=== PATIENT | female | born 1945 | race Caucasian/White ===

== ENCOUNTER → 2018-01-02 14:00 | Outpatient (CLI) | payer MEDICARE, BC, SELFPAY ==
--- NOTE | 2018-01-02 | DI.MG.S_ITS ---
BILATERAL DIGITAL SCREENING MAMMOGRAM 3D/2D WITH CAD: 01/02/2018 CLINICAL: Routine screening. Comparison is made to exams dated: 02/24/2014 mammogram, 02/10/2013 mammogram - [facility], and 02/03/2008 mammogram - [facility]. The tissue of both breasts is heterogeneously dense. This may lower the sensitivity of mammography. Current study was also evaluated with a Computer Aided Detection (CAD) system. No significant masses, calcifications, or other findings are seen in either breast. There has been no significant interval change. IMPRESSION: NEGATIVE There is no mammographic evidence of malignancy. A 1 year screening mammogram is recommended. This exam was interpreted at Station ID: [id number]. NOTE: For mammograms, a report in lay terms will be sent to the patient. Approximately 15% of breast malignancies will not be visualized mammographically. In the management of a palpable breast mass, a negative mammogram must not discourage biopsy of a clinically suspicious lesion. Electronically Signed By: Mauricio wolff/rene:01/04/2018 08:38:36 letter sent: Normal Exam ACR BI-RADS Category 1: Negative [id number]
== END ==
PROVIDERS: PCP Family Medicine; Visit Provider Family Medicine
DX: Z12.31 Encounter for screening mammogram for malignant neoplasm of breast (principal)
CPT/HCPCS: 77063; 77067

== ENCOUNTER → 2018-05-04 14:43 | Outpatient (CLI) | payer MEDICARE, BC, SELFPAY ==
[2018-05-04 18:11] LABS: Vitamin D 25 Hydroxy (D3) 32.6 ng/mL (30.0-100.0)
== END ==
PROVIDERS: PCP Family Medicine; Visit Provider Family Medicine
DX: E55.9 Vitamin D deficiency, unspecified (principal)
CPT/HCPCS: 36415; 82306

== ENCOUNTER 2018-07-28 10:00 | Outpatient (RCR) | payer MEDICARE, BC, SELFPAY ==
--- NOTE | 2018-03-22 12:50 | PT.OIE ---
Current Diagnoses Strain of unspecified muscle, fascia and tendon at shoulder and upper arm level, right arm, initial encounter (03/22/18) Past Medical History (Last Updated 02/02/18 @ 15:03 by Lynnette Noe) Mixed basal-squamous cell carcinoma (Resolved) Past Surgical History (Last Updated 02/02/18 @ 15:02 by Lynnette Noe) History of tonsillectomy (~1948) Status post cone biopsy of cervix (~1989) Provider Visit Care Team Role Provider Type Che Lopez DO Attending Provider Physician Primary Care Provider Specialty: Family Practice Address: [address] [place] [address], [facility] Email: [email or web address] Physical Therapy Initial Evaluation PT-OP-A Visit Information Start: 03/23/18 11:44 Freq: Status: Active Protocol: Document 03/22/18 12:50 MDD (Rec: 03/23/18 12:20 MDD [email or web address]) Out-Patient Physical Therapy Visit Information Visit Information Visit Type Initial Evaluation Visit Start Time 12:05 Visit Stop Time 12:50 Total Visit Minutes 45 Visit Number 1 Number of RIVER EXPEDITION GUIDE Visits 0 Evaluation Information Evaluation Date 03/22/18 PT-OP-B Current Condition Start: 03/23/18 11:44 Freq: Status: Active Protocol: Document 03/22/18 12:50 MDD (Rec: 03/23/18 12:20 MDD [email or web address]) Current Condition History of Current Condition Onset Date 3 months ago Current Complaints R neck, shoulder and arm pain - radiates into lateral forearm and thumb History of Current Condition Incidious onset 3 months ago. Pain is intermittent and described as dull and achy. Occaisionally radiates into forearm, wrist and R thumb. 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 Denies previous neck injury or MVA history. Reports that when pain began, all of her joints would hurt intermittently, but now the shoulder pain has continued. Aggravating factors include reaching overhead, lifting laundry detergent or a tea kettle and lifting/carrying a heavy bag of groceries. She is able to sleep on that side. Massage is helpful (goes once a month). No imaging. Prior Treatments and Tests tylenol, icing intermittently. home care associate has been helpful for neck pain, but not shoulder Prior Functional Status Baseline Function- ADL's Independent Baseline Function- Mobility Independent Baseline Function- Recreation/Hobbies Lifting radu parker ( roughly 15#). Was attending a fitness center a few times a week, walking the dog, gardening. 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 Patient Reported Progress Same OP-PT Pain Assessment Pain Assessment Grid Paper Pain Assessment Grid Completed Yes Location Shoulder Pain Location Details R, anterior radiating into deltoid process, Intensity 4 Scale Used Numeric (1 - 10) Description Aching Dull Frequency Frequent Pain Duration an hour or so Radiating Location R forearm, wrist and thumb Pain Aggravating Factors ADL's Lifting Pain Alleviating Factors Cold Medication PT-OP-F Manual Assessment Start: 03/23/18 11:44 Freq: Status: Active Protocol: Document 03/22/18 12:50 MDD (Rec: 03/23/18 12:20 MDD [email or web address]) Manual Assessments Soft Tissue Assessment Soft Tissue Mobility Assessment Significant tightness in B upper trapezii, R>L. PT-OP-J Posture/Palpation/Skin Start: 03/23/18 11:44 Freq: Status: Active Protocol: Document 03/22/18 12:50 MDD (Rec: 03/23/18 12:20 MDD [email or web address]) Posture Evaluation Position Sitting Evaluation View Lateral Head/C-Spine Posture Flexed C-Spine Flattened Forward Head T-Spine Posture Increased Kyphosis Thorax Posture Neutral Shoulder Posture (L) Rounded (R) Rounded (R) Elevated Shoulder Subluxation Position (L) Neutral (R) Neutral Scapula Posture (R) Protracted (R) Elevated (R) Winged Arm Posture (R) Internally Rotated Palpation Assessment Location One Palpation Location coracoid process Palpation Findings Tenderness Palpation Details R coracoid process tender to palpation PT-OP-K Range of Motion Start: 03/23/18 11:44 Freq: Status: Active Protocol: Document 03/22/18 12:50 MDD (Rec: 03/23/18 12:20 MDD [email or web address]) Cervical Spine Range of Motion Cervical Spine Passive Testing Position Supine ROM Limitations Soft Tissue Tightness Comments Passive movements wfl in all motions, slightly greater than active Active Testing Position Sitting ROM Limitations Soft Tissue Tightness Comments all movements within normal limits, R mild limitation and pain with R rotation Shoulder Goniometric Range of Motion Shoulder Measured in Degrees Left Active Shoulder ROM WFL Yes Testing Position Sitting Flexion 145 Abduction 160 Right Active Shoulder ROM WFL Yes Testing Position Sitting Flexion 142 Abduction 100 Shoulder ROM Limitations Shoulder ROM Limitations Soft Tissue Tightness Comments Functional ER with hands behind head wnl. Functional IR wnl, but causes mild stretch sensation anterior shoulder PT-OP-L Special Tests Start: 03/23/18 11:44 Freq: Status: Active Protocol: Document 03/22/18 12:50 MDD (Rec: 03/23/18 12:20 MDD [email or web address]) Special Tests Cervical Spine Special Tests Spurling's Test Test Results negative B Comments no re-creation of radiating pain into thumb/forearm Shoulder Special Tests Empty Can Test Results positive Speed's Biceps Test Results negative Biceps Load II Test Test Results negative Rebollar Francis Impingement Test Results positive R PT-OP-M Strength Start: 03/23/18 11:44 Freq: Status: Active Protocol: Document 03/22/18 12:50 MDD (Rec: 03/23/18 12:20 MDD [email or web address]) Shoulder Strength Shoulder Manual Muscle Testing Left Flexion 5 Normal Abduction (C5) 5 Normal External Rotation 4+ Good+ Internal Rotation 5 Normal Right External Rotation 4 Good Internal Rotation 5 Normal Reason Not Measured Pain Comments abduction/flexion not tested due to pain with active movement PT-OP-Q Treatments Start: 03/23/18 11:44 Freq: Status: Active Protocol: Document 03/23/18 12:20 MDD (Rec: 03/23/18 12:21 MDD [email or web address]) Therapeutic Exercises Standing Exercises 3 Standing Exercise Name corner pectoralis stretch Side bilateral Reps/Minutes 2 x 30 seconds 2 Standing Exercise Name scapular retraction Side bilateral Reps/Minutes 15 1 Standing Exercise Name wall walking Side right Reps/Minutes 10 PT-OP-T Assessment and Plan Start: 03/23/18 11:44 Freq: Status: Active Protocol: Document 03/22/18 12:50 MDD (Rec: 03/23/18 12:20 MDD [email or web address]) Physical Therapy Assessment Rehab Potential Rehabilitation Potential Excellent Evaluation Complexity Number of Personal Factors/Comorbidities 0 Number of Body Systems Impaired 1-2 Clinical Presentation at Evaluation Stable Impairments Impairments Functional Activities Pain Posture ROM Soft Tissue Mobility Strength Goals Four Impairment ADL's Short Term Goal (STG) Pt will have improved quickDASH score to no greater than 20% disability to indicate improved function STG Duration 8 weeks Three Impairment strength Short Term Goal (STG) Pt will have 5/5 strength in rotator cuff muscles. STG Duration 6 weeks Two Impairment pain Short Term Goal (STG) Pt will tolerate activities of daily living (such as lifting a tea kettle) with 0/10 pain in R shoulder. STG Duration 4 weeks One Impairment ROM Short Term Goal (STG) Pt will demonstrate full end range R shoulder flexion ROM without pain. STG Duration 3 weeks Assessment Summary Assessment Pt is a pleasant female who presents today complaining of R shoulder pain that is currently limiting her ability to perform some ADL's without pain. On examination today she demonstrates impaired posture, decreased R shoulder strength, mild impairments in ROM and pain that seem indicative of either rotator cuff tendinitis and/or impingement. Despite pain radiating into R arm/forearm, symptoms do not seem to be coming from her cervical spine . She should benefit from a PT plan of care to address the above impairments. Physical Therapy Plan Frequency and Duration Frequency of Treatment 1x/Week Duration of Treatment 8 weeks Plan of Care Start Date 03/22/18 Plan of Care End Date 06/01/18 Therapeutic Interventions Therapeutic Interventions Home Exercise Program Joint Mobilizations Manual Therapy Neuromuscular Re-education Self-Care/Home Management Soft Tissue Mobilization Therapeutic Activities Therapeutic Exercises Modalities Cold Pack/Ice Massage Electric Stimulation Hot Packs Next Visit Focus/Plan Next Note Type Treatment Note Next Visit Plan review HEP (included corner pectoralis stretch, wall walking and scapular retraction).
--- NOTE | 2018-03-30 11:18 | PT.OTN ---
Current Diagnoses Strain of unspecified muscle, fascia and tendon at shoulder and upper arm level, right arm, initial encounter (03/30/18) Physical Therapy Treatment Note PT-OP-A Visit Information Start: 03/23/18 11:44 Freq: Status: Active Protocol: Document 03/30/18 11:18 MDD (Rec: 03/31/18 12:27 MDD [email or web address]) Out-Patient Physical Therapy Visit Information Visit Information Visit Type Treatment Note Visit Start Time 10:36 Visit Stop Time 11:18 Total Visit Minutes 42 Visit Number 3 Number of BELT SANDER STONE Visits 0 Evaluation Information Evaluation Date 03/22/18 PT-OP-B Current Condition Start: 03/23/18 11:44 Freq: Status: Active Protocol: Document 03/22/18 12:50 MDD (Rec: 03/23/18 12:20 MDD [email or web address]) Current Condition History of Current Condition Onset Date 3 months ago Current Complaints R neck, shoulder and arm pain - radiates into lateral forearm and thumb History of Current Condition Incidious onset 3 months ago. Pain is intermittent and described as dull and achy. Occaisionally radiates into forearm, wrist and R thumb. 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 Denies previous neck injury or MVA history. Reports that when pain began, all of her joints would hurt intermittently, but now the shoulder pain has continued. Aggravating factors include reaching overhead, lifting laundry detergent or a tea kettle and lifting/carrying a heavy bag of groceries. She is able to sleep on that side. Massage is helpful (goes once a month). No imaging. Prior Treatments and Tests tylenol, icing intermittently. 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 Was attending a fitness center a few times a week, walking the dog, gardening. 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 Has had family visiting, so has been busy and doing more. Has tried to do exercises, but has missed them some days. Patient Reported Progress Same OP-PT Pain Assessment Location Shoulder Pain Location Details R anterior Intensity 3 Scale Used Numeric (1 - 10) Description Aching Dull PT-OP-F Manual Assessment Start: 03/23/18 11:44 Freq: Status: Active Protocol: Document 03/22/18 12:50 MDD (Rec: 03/23/18 12:20 MDD [email or web address]) Manual Assessments Soft Tissue Assessment Soft Tissue Mobility Assessment Significant tightness in B upper trapezii, R>L. PT-OP-J Posture/Palpation/Skin Start: 03/23/18 11:44 Freq: Status: Active Protocol: Document 03/22/18 12:50 MDD (Rec: 03/23/18 12:20 MDD [email or web address]) Posture Evaluation Position Sitting Evaluation View Lateral Head/C-Spine Posture Flexed C-Spine Flattened Forward Head T-Spine Posture Increased Kyphosis Thorax Posture Neutral Shoulder Posture (L) Rounded (R) Rounded (R) Elevated Shoulder Subluxation Position (L) Neutral (R) Neutral Scapula Posture (R) Protracted (R) Elevated (R) Winged Arm Posture (R) Internally Rotated Palpation Assessment Location One Palpation Location coracoid process Palpation Findings Tenderness Palpation Details R coracoid process tender to palpation PT-OP-K Range of Motion Start: 03/23/18 11:44 Freq: Status: Active Protocol: Document 03/22/18 12:50 MDD (Rec: 03/23/18 12:20 MDD [email or web address]) Cervical Spine Range of Motion Cervical Spine Passive Testing Position Supine ROM Limitations Soft Tissue Tightness Comments Passive movements wfl in all motions, slightly greater than active Active Testing Position Sitting ROM Limitations Soft Tissue Tightness Comments all movements within normal limits, R mild limitation and pain with R rotation Shoulder Goniometric Range of Motion Shoulder Measured in Degrees Left Active Shoulder ROM WFL Yes Testing Position Sitting Flexion 145 Abduction 160 Right Active Shoulder ROM WFL Yes Testing Position Sitting Flexion 142 Abduction 100 Shoulder ROM Limitations Shoulder ROM Limitations Soft Tissue Tightness Comments Functional ER with hands behind head wnl. Functional IR wnl, but causes mild stretch sensation anterior shoulder PT-OP-L Special Tests Start: 03/23/18 11:44 Freq: Status: Active Protocol: Document 03/22/18 12:50 MDD (Rec: 03/23/18 12:20 MDD [email or web address]) Special Tests Cervical Spine Special Tests Spurling's Test Test Results negative B Comments no re-creation of radiating pain into thumb/forearm Shoulder Special Tests Empty Can Test Results positive Speed's Biceps Test Results negative Biceps Load II Test Test Results negative Rebollar Francis Impingement Test Results positive R PT-OP-M Strength Start: 03/23/18 11:44 Freq: Status: Active Protocol: Document 03/22/18 12:50 MDD (Rec: 03/23/18 12:20 MDD [email or web address]) Shoulder Strength Shoulder Manual Muscle Testing Left Flexion 5 Normal Abduction (C5) 5 Normal External Rotation 4+ Good+ Internal Rotation 5 Normal Right External Rotation 4 Good Internal Rotation 5 Normal Reason Not Measured Pain Comments abduction/flexion not tested due to pain with active movement PT-OP-Q Treatments Start: 03/23/18 11:44 Freq: Status: Active Protocol: Document 03/30/18 11:18 MDD (Rec: 03/31/18 12:27 MDD [id number]) Therapeutic Exercises Supine Exercises pectoralis stretch on foam roll Side bilateral Equipment Used 1/2 foam roll Reps/Minutes 3 minutes Comments snow angels, gradually moving arms into abduction Sidelying Exercises R shoulder ER Side right Resistance against gravity Reps/Minutes 10 x 2 Standing Exercises Resisted shoulder IR Side right Resistance Level 1 t-band Reps/Minutes 2 x 15 reps Comments towel roll under elbow shoulder pulleys AAROM flexion Standing Exercise Name flexion Side right Resistance none Equipment Used shoulder pulleys Reps/Minutes 5 minutes Comments facing away from wall 2 Standing Exercise Name scapular retraction Side bilateral Reps/Minutes 15 Comments emphasis on avoiding upper trap activation 1 Standing Exercise Name wall walking Side right Reps/Minutes 10 Manual Therapy Treatment Soft Tissue Mobilization manual pectoralis stretch Body Location B shoulders Mobilization Type Sustained Pressure Intensity/Depth Superficial Body Position Supine Comments 3 x 30 second holds strain counterstrain Body Location trigger points R upper trapezius Mobilization Type Strain/Counterstrain Intensity/Depth Superficial Body Position Supine Comments 3 repetitions of 90+ seconds each. Joint Mobilizations R shoulder distraction Joint glenohumeral Direction distraction Grade II Body Position Supine Reps/Duration 6 bouts of 45 seconds each PT-OP-T Assessment and Plan Start: 03/23/18 11:44 Freq: Status: Active Protocol: Document 03/30/18 11:18 MDD (Rec: 03/31/18 12:27 MDD [id number]) Physical Therapy Assessment Rehab Potential Rehabilitation Potential Excellent Progress Towards Goals Progress Towards Goals Progressing Toward Goals Progress Comments Pt working on relative rest. Reports she feels a bit better overall, but continues to have intermittently bad days. Hoping this improves as company leaves. Assessment Summary Assessment Progressing, will work on better adherance to HEP. Physical Therapy Plan Frequency and Duration Frequency of Treatment 1x/Week Duration of Treatment 8 weeks Plan of Care Start Date 03/22/18 Plan of Care End Date 06/01/18 Next Visit Focus/Plan Next Note Type Treatment Note Next Visit Plan review HEP, if resisted ER still painful, trial isometric shoulder ER.
--- NOTE | 2018-04-06 12:23 | PT.OTN ---
Current Diagnoses Strain of unspecified muscle, fascia and tendon at shoulder and upper arm level, right arm, initial encounter (04/06/18) Physical Therapy Treatment Note PT-OP-A Visit Information Start: 03/23/18 11:44 Freq: Status: Active Protocol: Document 04/06/18 12:23 MDD (Rec: 04/06/18 13:43 MDD [email or web address]) Out-Patient Physical Therapy Visit Information Visit Information Visit Type Treatment Note Visit Note Pt arrived late to her 11:15 appointment (she thought it was at 11:30). Visit Start Time 11:37 Visit Stop Time 12:23 Total Visit Minutes 46 Visit Number 3 Number of SLOT FLOORMAN Visits 0 Evaluation Information Evaluation Date 03/22/18 PT-OP-B Current Condition Start: 03/23/18 11:44 Freq: Status: Active Protocol: Document 03/22/18 12:50 MDD (Rec: 03/23/18 12:20 MDD [email or web address]) Current Condition History of Current Condition Onset Date 3 months ago Current Complaints R neck, shoulder and arm pain - radiates into lateral forearm and thumb History of Current Condition Incidious onset 3 months ago. Pain is intermittent and described as dull and achy. Occaisionally radiates into forearm, wrist and R thumb. 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 Denies previous neck injury or MVA history. Reports that when pain began, all of her joints would hurt intermittently, but now the shoulder pain has continued. Aggravating factors include reaching overhead, lifting laundry detergent or a tea kettle and lifting/carrying a heavy bag of groceries. She is able to sleep on that side. Massage is helpful (goes once a month). No imaging. Prior Treatments and Tests tylenol, icing intermittently. caregivers non medical has been helpful for neck pain, but not shoulder Prior Functional Status Baseline Function- ADL's Independent Baseline Function- Mobility Independent Baseline Function- Recreation/Hobbies Lifting great grandson ( roughly 15#). Was attending a fitness center a few times a week, walking the dog, gardening. 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 Notes pain occurs less frequently and is less severe. Does report feeling it sometimes after her therex (especially into her R neck). Patient Reported Progress Improving OP-PT Pain Assessment Location Shoulder Pain Location Details R anterior Intensity 3 Scale Used Numeric (1 - 10) Description Aching Dull PT-OP-F Manual Assessment Start: 03/23/18 11:44 Freq: Status: Active Protocol: Document 03/22/18 12:50 MDD (Rec: 03/23/18 12:20 MDD [email or web address]) Manual Assessments Soft Tissue Assessment Soft Tissue Mobility Assessment Significant tightness in B upper trapezii, R>L. PT-OP-J Posture/Palpation/Skin Start: 03/23/18 11:44 Freq: Status: Active Protocol: Document 03/22/18 12:50 MDD (Rec: 03/23/18 12:20 MDD [email or web address]) Posture Evaluation Position Sitting Evaluation View Lateral Head/C-Spine Posture Flexed C-Spine Flattened Forward Head T-Spine Posture Increased Kyphosis Thorax Posture Neutral Shoulder Posture (L) Rounded (R) Rounded (R) Elevated Shoulder Subluxation Position (L) Neutral (R) Neutral Scapula Posture (R) Protracted (R) Elevated (R) Winged Arm Posture (R) Internally Rotated Palpation Assessment Location One Palpation Location coracoid process Palpation Findings Tenderness Palpation Details R coracoid process tender to palpation PT-OP-K Range of Motion Start: 03/23/18 11:44 Freq: Status: Active Protocol: Document 03/22/18 12:50 MDD (Rec: 03/23/18 12:20 MDD [email or web address]) Cervical Spine Range of Motion Cervical Spine Passive Testing Position Supine ROM Limitations Soft Tissue Tightness Comments Passive movements wfl in all motions, slightly greater than active Active Testing Position Sitting ROM Limitations Soft Tissue Tightness Comments all movements within normal limits, R mild limitation and pain with R rotation Shoulder Goniometric Range of Motion Shoulder Measured in Degrees Left Active Shoulder ROM WFL Yes Testing Position Sitting Flexion 145 Abduction 160 Right Active Shoulder ROM WFL Yes Testing Position Sitting Flexion 142 Abduction 100 Shoulder ROM Limitations Shoulder ROM Limitations Soft Tissue Tightness Comments Functional ER with hands behind head wnl. Functional IR wnl, but causes mild stretch sensation anterior shoulder PT-OP-L Special Tests Start: 03/23/18 11:44 Freq: Status: Active Protocol: Document 03/22/18 12:50 MDD (Rec: 03/23/18 12:20 MDD [email or web address]) Special Tests Cervical Spine Special Tests Spurling's Test Test Results negative B Comments no re-creation of radiating pain into thumb/forearm Shoulder Special Tests Empty Can Test Results positive Speed's Biceps Test Results negative Biceps Load II Test Test Results negative Rebollar Francis Impingement Test Results positive R PT-OP-M Strength Start: 03/23/18 11:44 Freq: Status: Active Protocol: Document 03/22/18 12:50 MDD (Rec: 03/23/18 12:20 MDD [email or web address]) Shoulder Strength Shoulder Manual Muscle Testing Left Flexion 5 Normal Abduction (C5) 5 Normal External Rotation 4+ Good+ Internal Rotation 5 Normal Right External Rotation 4 Good Internal Rotation 5 Normal Reason Not Measured Pain Comments abduction/flexion not tested due to pain with active movement PT-OP-Q Treatments Start: 03/23/18 11:44 Freq: Status: Active Protocol: Document 04/06/18 12:23 MDD (Rec: 04/06/18 13:43 MDD [email or web address]) Therapeutic Exercises Supine Exercises pectoralis stretch on foam roll Side bilateral Equipment Used 1/2 foam roll Reps/Minutes 3 minutes Comments snow angels, gradually moving arms into abduction Sitting Exercises isometric shoulder ER Side right Resistance self with opposite hand Reps/Minutes 10 x 10 s holds Standing Exercises resisted rows Side bilateral Resistance L1 t-band Reps/Minutes 2 x 15 Comments emphasis on keeping upper traps relaxed throughout Resisted shoulder IR Side right Resistance Level 1 t-band Reps/Minutes 2 x 15 reps Comments towel roll under elbow shoulder pulleys AAROM flexion Standing Exercise Name flexion Side right Resistance none Equipment Used shoulder pulleys Reps/Minutes 5 minutes Comments facing away from wall 2 Standing Exercise Name scapular retraction Side bilateral Reps/Minutes 15 Comments emphasis on avoiding upper trap activation Manual Therapy Treatment Soft Tissue Mobilization cervical stretches Body Location cervical Mobilization Type Other Body Position Supine Comments manual stretches to R upper traps, levator scapulae 2 x30 s each pectoralis minor Mobilization Type Sustained Pressure Intensity/Depth Moderate Body Position Supine Comments gentle pressure R pectoralis minor x 5 minutes manual pectoralis stretch Body Location B shoulders Mobilization Type Sustained Pressure Intensity/Depth Superficial Body Position Supine Comments 3 x 30 second holds strain counterstrain Body Location trigger points R upper trapezius Mobilization Type Strain/Counterstrain Intensity/Depth Superficial Body Position Supine Comments 3 repetitions of 90+ seconds each. Manual Techniques Mobilization with movement Type active R shoulder flexion Body Location R scapulae - inferior glide Body Position L sidelying Reps/Duration 10 reps Comments Pt initially reported pain with active end range R shoulder flexion, notes relief and improved scapular position following MWM. PT-OP-T Assessment and Plan Start: 03/23/18 11:44 Freq: Status: Active Protocol: Document 04/06/18 12:23 MDD (Rec: 04/06/18 13:43 MDD [email or web address]) Physical Therapy Assessment Goals Four Impairment ADL's Short Term Goal (STG) Pt will have improved quickDASH score to no greater than 20% disability to indicate improved function STG Duration 8 weeks Three Impairment strength Short Term Goal (STG) Pt will have 5/5 strength in rotator cuff muscles. STG Duration 6 weeks Two Impairment pain Short Term Goal (STG) Pt will tolerate activities of daily living (such as lifting a tea kettle) with 0/10 pain in R shoulder. STG Duration 4 weeks One Impairment ROM Short Term Goal (STG) Pt will demonstrate full end range R shoulder flexion ROM without pain. STG Duration 3 weeks Progress Towards Goals Progress Towards Goals Progressing Toward Goals Progress Comments Pt able to actively flex R shoulder without pain at end of session today. Assessment Summary Assessment Continues to have RC weakness R>L and impaired scapulothoracic muscle activation. Physical Therapy Plan Frequency and Duration Frequency of Treatment 1x/Week Duration of Treatment 8 weeks Plan of Care Start Date 03/22/18 Plan of Care End Date 06/01/18 Next Visit Focus/Plan Next Note Type Treatment Note Next Visit Plan attempt to progress isometrics if tolerable. Education on scapular stabilization with shoulder flexion/scaption.
--- NOTE | 2018-04-13 09:47 | PT.OTN ---
Current Diagnoses Strain of unspecified muscle, fascia and tendon at shoulder and upper arm level, right arm, initial encounter (04/13/18) Physical Therapy Treatment Note PT-OP-A Visit Information Start: 03/23/18 11:44 Freq: Status: Active Protocol: Document 04/13/18 09:47 MDD (Rec: 04/13/18 11:36 MDD [email or web address]) Out-Patient Physical Therapy Visit Information Visit Information Visit Type Treatment Note Visit Start Time 09:02 Visit Stop Time 09:47 Total Visit Minutes 45 Visit Number 4 Number of COST ENGINEER Visits 0 Evaluation Information Evaluation Date 03/22/18 PT-OP-B Current Condition Start: 03/23/18 11:44 Freq: Status: Active Protocol: Document 03/22/18 12:50 MDD (Rec: 03/23/18 12:20 MDD [email or web address]) Current Condition History of Current Condition Onset Date 3 months ago Current Complaints R neck, shoulder and arm pain - radiates into lateral forearm and thumb History of Current Condition Incidious onset 3 months ago. Pain is intermittent and described as dull and achy. Occaisionally radiates into forearm, wrist and R thumb. 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 Denies previous neck injury or MVA history. Reports that when pain began, all of her joints would hurt intermittently, but now the shoulder pain has continued. Aggravating factors include reaching overhead, lifting laundry detergent or a tea kettle and lifting/carrying a heavy bag of groceries. She is able to sleep on that side. Massage is helpful (goes once a month). No imaging. Prior Treatments and Tests tylenol, icing intermittently. director of healthcare systems has been helpful for neck pain, but not shoulder Prior Functional Status Baseline Function- ADL's Independent Baseline Function- Mobility Independent Baseline Function- Recreation/Hobbies Lifting great grandson ( roughly 15#). Was attending a fitness center a few times a week, walking the dog, gardening. 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 Has been more consistent with her HEP. PT-OP-F Manual Assessment Start: 03/23/18 11:44 Freq: Status: Active Protocol: Document 03/22/18 12:50 MDD (Rec: 03/23/18 12:20 MDD [email or web address]) Manual Assessments Soft Tissue Assessment Soft Tissue Mobility Assessment Significant tightness in B upper trapezii, R>L. PT-OP-J Posture/Palpation/Skin Start: 03/23/18 11:44 Freq: Status: Active Protocol: Document 03/22/18 12:50 MDD (Rec: 03/23/18 12:20 MDD [email or web address]) Posture Evaluation Position Sitting Evaluation View Lateral Head/C-Spine Posture Flexed C-Spine Flattened Forward Head T-Spine Posture Increased Kyphosis Thorax Posture Neutral Shoulder Posture (L) Rounded (R) Rounded (R) Elevated Shoulder Subluxation Position (L) Neutral (R) Neutral Scapula Posture (R) Protracted (R) Elevated (R) Winged Arm Posture (R) Internally Rotated Palpation Assessment Location One Palpation Location coracoid process Palpation Findings Tenderness Palpation Details R coracoid process tender to palpation PT-OP-K Range of Motion Start: 03/23/18 11:44 Freq: Status: Active Protocol: Document 03/22/18 12:50 MDD (Rec: 03/23/18 12:20 MDD [email or web address]) Cervical Spine Range of Motion Cervical Spine Passive Testing Position Supine ROM Limitations Soft Tissue Tightness Comments Passive movements wfl in all motions, slightly greater than active Active Testing Position Sitting ROM Limitations Soft Tissue Tightness Comments all movements within normal limits, R mild limitation and pain with R rotation Shoulder Goniometric Range of Motion Shoulder Measured in Degrees Left Active Shoulder ROM WFL Yes Testing Position Sitting Flexion 145 Abduction 160 Right Active Shoulder ROM WFL Yes Testing Position Sitting Flexion 142 Abduction 100 Shoulder ROM Limitations Shoulder ROM Limitations Soft Tissue Tightness Comments Functional ER with hands behind head wnl. Functional IR wnl, but causes mild stretch sensation anterior shoulder PT-OP-L Special Tests Start: 03/23/18 11:44 Freq: Status: Active Protocol: Document 03/22/18 12:50 MDD (Rec: 03/23/18 12:20 MDD [email or web address]) Special Tests Cervical Spine Special Tests Spurling's Test Test Results negative B Comments no re-creation of radiating pain into thumb/forearm Shoulder Special Tests Empty Can Test Results positive Speed's Biceps Test Results negative Biceps Load II Test Test Results negative Rebollar Francis Impingement Test Results positive R PT-OP-M Strength Start: 03/23/18 11:44 Freq: Status: Active Protocol: Document 03/22/18 12:50 MDD (Rec: 03/23/18 12:20 MDD [email or web address]) Shoulder Strength Shoulder Manual Muscle Testing Left Flexion 5 Normal Abduction (C5) 5 Normal External Rotation 4+ Good+ Internal Rotation 5 Normal Right External Rotation 4 Good Internal Rotation 5 Normal Reason Not Measured Pain Comments abduction/flexion not tested due to pain with active movement PT-OP-Q Treatments Start: 03/23/18 11:44 Freq: Status: Active Protocol: Document 04/13/18 09:47 MDD (Rec: 04/13/18 11:36 MDD [email or web address]) Therapeutic Exercises Supine Exercises pectoralis stretch on foam roll Side bilateral Equipment Used 1/2 foam roll Reps/Minutes 3 minutes Comments snow angels, gradually moving arms into abduction Sitting Exercises cervical stretches Sitting Exercise Name levator scapulae and UT stretches Side right Reps/Minutes 2 x 30 seconds each Standing Exercises Resisted scaption Side bilateral Resistance L1 t-band Reps/Minutes 15 Comments focus on scapular stabilization Resisted shoulder IR Side right Resistance Level 1 t-band Reps/Minutes 2 x 15 reps Comments pt still reporting pain with this exercise, will continue with isometrics shoulder pulleys AAROM flexion Standing Exercise Name flexion Side right Resistance none Equipment Used shoulder pulleys Reps/Minutes 5 minutes Comments facing away from wall 2 Standing Exercise Name scapular retraction Side bilateral Reps/Minutes 30 Comments emphasis on avoiding upper trap activation Manual Therapy Treatment Soft Tissue Mobilization cervical stretches Body Location cervical Mobilization Type Other Body Position Supine Comments manual stretches to R upper traps, levator scapulae 2 x30 s each manual pectoralis stretch Body Location B shoulders Mobilization Type Sustained Pressure Intensity/Depth Superficial Body Position Supine Comments 3 x 30 second holds strain counterstrain Body Location trigger points R upper trapezius Mobilization Type Strain/Counterstrain Intensity/Depth Superficial Body Position Supine Comments 1 repetition of 90+ seconds each. Joint Mobilizations Thoracic spine Joint T4,5 Direction PA's Grade III Body Position Prone Reps/Duration 3 x 45 second bouts PT-OP-T Assessment and Plan Start: 03/23/18 11:44 Freq: Status: Active Protocol: Document 04/13/18 09:47 MDD (Rec: 04/13/18 11:36 MDD [email or web address]) Physical Therapy Assessment Goals Four Impairment ADL's Short Term Goal (STG) Pt will have improved quickDASH score to no greater than 20% disability to indicate improved function STG Duration 8 weeks Three Impairment strength Short Term Goal (STG) Pt will have 5/5 strength in rotator cuff muscles. STG Duration 6 weeks Two Impairment pain Short Term Goal (STG) Pt will tolerate activities of daily living (such as lifting a tea kettle) with 0/10 pain in R shoulder. STG Duration 4 weeks One Impairment ROM Short Term Goal (STG) Pt will demonstrate full end range R shoulder flexion ROM without pain. STG Duration 3 weeks Progress Towards Goals Progress Towards Goals Progressing Toward Goals Progress Comments Demonstrating improvement with no pain with active overhead flexion today. Continues to have RC weakness Assessment Summary Assessment Continues to have RC weakness R>L and impaired scapulothoracic muscle activation. Physical Therapy Plan Frequency and Duration Frequency of Treatment 1x/Week Duration of Treatment 8 weeks Plan of Care Start Date 03/22/18 Plan of Care End Date 06/01/18 Next Visit Focus/Plan Next Note Type Treatment Note Next Visit Plan attempt to progress isometrics if tolerable.
--- NOTE | 2018-04-20 11:17 | PT.OTN ---
Current Diagnoses Strain of unspecified muscle, fascia and tendon at shoulder and upper arm level, right arm, initial encounter (04/20/18) Physical Therapy Treatment Note PT-OP-A Visit Information Start: 03/23/18 11:44 Freq: Status: Active Protocol: Document 04/20/18 11:17 MDD (Rec: 04/20/18 15:40 MDD [email or web address]) Out-Patient Physical Therapy Visit Information Visit Information Visit Type Treatment Note Visit Start Time 10:37 Visit Stop Time 11:17 Total Visit Minutes 40 Visit Number 5 Number of QUALITY ENGINEERING MANAGER Visits 0 Evaluation Information Evaluation Date 03/22/18 PT-OP-B Current Condition Start: 03/23/18 11:44 Freq: Status: Active Protocol: Document 03/22/18 12:50 MDD (Rec: 03/23/18 12:20 MDD [email or web address]) Current Condition History of Current Condition Onset Date 3 months ago Current Complaints R neck, shoulder and arm pain - radiates into lateral forearm and thumb History of Current Condition Incidious onset 3 months ago. Pain is intermittent and described as dull and achy. Occaisionally radiates into forearm, wrist and R thumb. 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 Denies previous neck injury or MVA history. Reports that when pain began, all of her joints would hurt intermittently, but now the shoulder pain has continued. Aggravating factors include reaching overhead, lifting laundry detergent or a tea kettle and lifting/carrying a heavy bag of groceries. She is able to sleep on that side. Massage is helpful (goes once a month). No imaging. Prior Treatments and Tests tylenol, icing intermittently. animal care specialist has been helpful for neck pain, but not shoulder Prior Functional Status Baseline Function- ADL's Independent Baseline Function- Mobility Independent Baseline Function- Recreation/Hobbies Lifting great grandson ( roughly 15#). Was attending a fitness center a few times a week, walking the dog, gardening. 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 Did have some increased B neck pain last week, but this has resolved. Feeling pain only intermittently when lifting her teapot. Patient Reported Progress Improving PT-OP-F Manual Assessment Start: 03/23/18 11:44 Freq: Status: Active Protocol: Document 03/22/18 12:50 MDD (Rec: 03/23/18 12:20 MDD [email or web address]) Manual Assessments Soft Tissue Assessment Soft Tissue Mobility Assessment Significant tightness in B upper trapezii, R>L. PT-OP-J Posture/Palpation/Skin Start: 03/23/18 11:44 Freq: Status: Active Protocol: Document 03/22/18 12:50 MDD (Rec: 03/23/18 12:20 MDD [email or web address]) Posture Evaluation Position Sitting Evaluation View Lateral Head/C-Spine Posture Flexed C-Spine Flattened Forward Head T-Spine Posture Increased Kyphosis Thorax Posture Neutral Shoulder Posture (L) Rounded (R) Rounded (R) Elevated Shoulder Subluxation Position (L) Neutral (R) Neutral Scapula Posture (R) Protracted (R) Elevated (R) Winged Arm Posture (R) Internally Rotated Palpation Assessment Location One Palpation Location coracoid process Palpation Findings Tenderness Palpation Details R coracoid process tender to palpation PT-OP-K Range of Motion Start: 03/23/18 11:44 Freq: Status: Active Protocol: Document 03/22/18 12:50 MDD (Rec: 03/23/18 12:20 MDD [email or web address]) Cervical Spine Range of Motion Cervical Spine Passive Testing Position Supine ROM Limitations Soft Tissue Tightness Comments Passive movements wfl in all motions, slightly greater than active Active Testing Position Sitting ROM Limitations Soft Tissue Tightness Comments all movements within normal limits, R mild limitation and pain with R rotation Shoulder Goniometric Range of Motion Shoulder Measured in Degrees Left Active Shoulder ROM WFL Yes Testing Position Sitting Flexion 145 Abduction 160 Right Active Shoulder ROM WFL Yes Testing Position Sitting Flexion 142 Abduction 100 Shoulder ROM Limitations Shoulder ROM Limitations Soft Tissue Tightness Comments Functional ER with hands behind head wnl. Functional IR wnl, but causes mild stretch sensation anterior shoulder PT-OP-L Special Tests Start: 03/23/18 11:44 Freq: Status: Active Protocol: Document 03/22/18 12:50 MDD (Rec: 08/07/18 12:20 MDD [email or web address]) Special Tests Cervical Spine Special Tests Spurling's Test Test Results negative B Comments no re-creation of radiating pain into thumb/forearm Shoulder Special Tests Empty Can Test Results positive Speed's Biceps Test Results negative Biceps Load II Test Test Results negative Rebollar Francis Impingement Test Results positive R PT-OP-M Strength Start: 03/23/18 11:44 Freq: Status: Active Protocol: Document 03/22/18 12:50 MDD (Rec: 03/23/18 12:20 MDD [email or web address]) Shoulder Strength Shoulder Manual Muscle Testing Left Flexion 5 Normal Abduction (C5) 5 Normal External Rotation 4+ Good+ Internal Rotation 5 Normal Right External Rotation 4 Good Internal Rotation 5 Normal Reason Not Measured Pain Comments abduction/flexion not tested due to pain with active movement PT-OP-Q Treatments Start: 03/23/18 11:44 Freq: Status: Active Protocol: Document 04/20/18 11:17 MDD (Rec: 04/20/18 15:40 MDD [email or web address]) Cardio Equipment Upper Body Ergometer (UBE) Duration (Minutes) 5 Seat Position 11 Height 2.5 Other arm length 1 Therapeutic Exercises Supine Exercises pectoralis stretch on foam roll Side bilateral Equipment Used 1/2 foam roll Reps/Minutes 3 minutes Comments snow angels, gradually moving arms into abduction Standing Exercises windshield wipers - circles Side right Resistance none Reps/Minutes [address] Comments circles against towel on wall at shoulder height Resisted scaption Side bilateral Resistance decreased to no resistance Reps/Minutes 15 Comments focus on scapular stabilization resisted rows Side bilateral Resistance L1 t-band Reps/Minutes 2 x 15 Comments emphasis on keeping upper traps relaxed throughout Resisted shoulder IR Side right Resistance Level 2 t-band Reps/Minutes 2 x 15 reps shoulder pulleys AAROM flexion Standing Exercise Name flexion Side right Resistance none Equipment Used shoulder pulleys Reps/Minutes 5 minutes Comments facing away from wall 2 Standing Exercise Name scapular retraction Side bilateral Reps/Minutes 10 Comments emphasis on avoiding upper trap activation Manual Therapy Treatment Soft Tissue Mobilization manual pectoralis stretch Body Location B shoulders Mobilization Type Sustained Pressure Intensity/Depth Superficial Body Position Supine Comments 3 x 30 second holds strain counterstrain Body Location trigger points R upper trapezius Mobilization Type Strain/Counterstrain Intensity/Depth Superficial Body Position Supine Comments 2 repetition of 90+ seconds each. Performed with foam roll vertically along spine for pectoralis stretch. Other Other Manual Treatments Sidelying rhythmic stabilization with arm at sides - resisting IR/ER pressure from therapist 4 x 30 second bouts. Also performed in supine with 90 degrees shoulder flexion, resistence in all directions 4 x 30 second bouts. PT-OP-T Assessment and Plan Start: 03/23/18 11:44 Freq: Status: Active Protocol: Document 04/20/18 11:17 MDD (Rec: 04/20/18 15:40 MDD [email or web address]) Physical Therapy Assessment Goals Four Impairment ADL's Short Term Goal (STG) Pt will have improved quickDASH score to no greater than 20% disability to indicate improved function STG Duration 8 weeks Three Impairment strength Short Term Goal (STG) Pt will have 5/5 strength in rotator cuff muscles. STG Duration 6 weeks Two Impairment pain Short Term Goal (STG) Pt will tolerate activities of daily living (such as lifting a tea kettle) with 0/10 pain in R shoulder. STG Duration 4 weeks One Impairment ROM Short Term Goal (STG) Pt will demonstrate full end range R shoulder flexion ROM without pain. STG Duration 3 weeks Progress Towards Goals Progress Towards Goals Progressing Toward Goals Progress Comments Pt demonstrates improved ability to perform therex today without aggravating R sided neck/shoulder pain. Assessment Summary Assessment Continues to have RC weakness R>L and impaired scapulothoracic muscle activation. Physical Therapy Plan Frequency and Duration Frequency of Treatment 1x/Week Duration of Treatment 8 weeks Plan of Care Start Date 03/22/18 Plan of Care End Date 06/01/18 Next Visit Focus/Plan Next Note Type Treatment Note Next Visit Plan attempt to progress isometrics if tolerable.
--- NOTE | 2018-04-27 16:29 | PT.OTN ---
Current Diagnoses Strain of unspecified muscle, fascia and tendon at shoulder and upper arm level, right arm, initial encounter (04/27/18) Physical Therapy Treatment Note PT-OP-A Visit Information Start: 03/23/18 11:44 Freq: Status: Active Protocol: Document 04/27/18 15:17 SAK (Rec: 04/27/18 16:29 SAK [id number]) Out-Patient Physical Therapy Visit Information Visit Information Visit Type Treatment Note Visit Start Time 15:15 Visit Stop Time 16:15 Total Visit Minutes 60 Visit Number 6 Number of PROTOTYPE DEICER ASSEMBLER Visits 0 Evaluation Information Evaluation Date 03/22/18 PT-OP-B Current Condition Start: 03/23/18 11:44 Freq: Status: Active Protocol: Document 03/22/18 12:50 MDD (Rec: 03/23/18 12:20 MDD [email or web address]) Current Condition History of Current Condition Onset Date 3 months ago Current Complaints R neck, shoulder and arm pain - radiates into lateral forearm and thumb History of Current Condition Incidious onset 3 months ago. Pain is intermittent and described as dull and achy. Occaisionally radiates into forearm, wrist and R thumb. 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 Denies previous neck injury or MVA history. Reports that when pain began, all of her joints would hurt intermittently, but now the shoulder pain has continued. Aggravating factors include reaching overhead, lifting laundry detergent or a tea kettle and lifting/carrying a heavy bag of groceries. She is able to sleep on that side. Massage is helpful (goes once a month). No imaging. Prior Treatments and Tests tylenol, icing intermittently. behavioral health care manager has been helpful for neck pain, but not shoulder Prior Functional Status Baseline Function- ADL's Independent Baseline Function- Mobility Independent Baseline Function- Recreation/Hobbies Lifting great grandson ( roughly 15#). Was attending a fitness center a few times a week, walking the dog, gardening. 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 I think I'm doing the exercises correctly but not always sure. Patient Reported Progress Improving PT-OP-F Manual Assessment Start: 03/23/18 11:44 Freq: Status: Active Protocol: Document 03/22/18 12:50 MDD (Rec: 03/23/18 12:20 MDD [email or web address]) Manual Assessments Soft Tissue Assessment Soft Tissue Mobility Assessment Significant tightness in B upper trapezii, R>L. PT-OP-J Posture/Palpation/Skin Start: 03/23/18 11:44 Freq: Status: Active Protocol: Document 03/22/18 12:50 MDD (Rec: 03/23/18 12:20 MDD [email or web address]) Posture Evaluation Position Sitting Evaluation View Lateral Head/C-Spine Posture Flexed C-Spine Flattened Forward Head T-Spine Posture Increased Kyphosis Thorax Posture Neutral Shoulder Posture (L) Rounded (R) Rounded (R) Elevated Shoulder Subluxation Position (L) Neutral (R) Neutral Scapula Posture (R) Protracted (R) Elevated (R) Winged Arm Posture (R) Internally Rotated Palpation Assessment Location One Palpation Location coracoid process Palpation Findings Tenderness Palpation Details R coracoid process tender to palpation PT-OP-K Range of Motion Start: 03/23/18 11:44 Freq: Status: Active Protocol: Document 03/22/18 12:50 MDD (Rec: 03/23/18 12:20 MDD [email or web address]) Cervical Spine Range of Motion Cervical Spine Passive Testing Position Supine ROM Limitations Soft Tissue Tightness Comments Passive movements wfl in all motions, slightly greater than active Active Testing Position Sitting ROM Limitations Soft Tissue Tightness Comments all movements within normal limits, R mild limitation and pain with R rotation Shoulder Goniometric Range of Motion Shoulder Measured in Degrees Left Active Shoulder ROM WFL Yes Testing Position Sitting Flexion 145 Abduction 160 Right Active Shoulder ROM WFL Yes Testing Position Sitting Flexion 142 Abduction 100 Shoulder ROM Limitations Shoulder ROM Limitations Soft Tissue Tightness Comments Functional ER with hands behind head wnl. Functional IR wnl, but causes mild stretch sensation anterior shoulder PT-OP-L Special Tests Start: 03/23/18 11:44 Freq: Status: Active Protocol: Document 03/22/18 12:50 MDD (Rec: 03/23/18 12:20 MDD [email or web address]) Special Tests Cervical Spine Special Tests Spurling's Test Test Results negative B Comments no re-creation of radiating pain into thumb/forearm Shoulder Special Tests Empty Can Test Results positive Speed's Biceps Test Results negative Biceps Load II Test Test Results negative Rebollar Francis Impingement Test Results positive R PT-OP-M Strength Start: 03/23/18 11:44 Freq: Status: Active Protocol: Document 03/22/18 12:50 MDD (Rec: 03/23/18 12:20 MDD [email or web address]) Shoulder Strength Shoulder Manual Muscle Testing Left Flexion 5 Normal Abduction (C5) 5 Normal External Rotation 4+ Good+ Internal Rotation 5 Normal Right External Rotation 4 Good Internal Rotation 5 Normal Reason Not Measured Pain Comments abduction/flexion not tested due to pain with active movement PT-OP-Q Treatments Start: 03/23/18 11:44 Freq: Status: Active Protocol: Document 04/27/18 15:17 SAK (Rec: 04/27/18 16:29 SAK [id number]) Cardio Equipment Upper Body Ergometer (UBE) Duration (Minutes) 5 Seat Position 11 Height 2.5 Other arm length 1 Therapeutic Exercises Supine Exercises 1 Supine Exercise Name shoulder flex Equipment Used 1/2 roll Reps/Minutes 12x Comments with manual lat release pectoralis stretch on foam roll Side bilateral Equipment Used 1/2 foam roll Reps/Minutes 3 minutes Comments snow angels, gradually moving arms into abduction Sidelying Exercises reach and roll Side bilateral Reps/Minutes 5x Comments manual cues and facilitation Sitting Exercises cervical stretches Sitting Exercise Name levator scapulae and UT stretches Side right Reps/Minutes 2 x 30 seconds each Standing Exercises shoulder ER Resistance L2 TB Equipment Used mirror Reps/Minutes 10 resisted rows Side bilateral Resistance L1 t-band Reps/Minutes 2 x 15 Comments emphasis on keeping upper traps relaxed throughout Resisted shoulder IR Side right Resistance Level 2 t-band Equipment Used mirror Reps/Minutes 2 x 15 reps shoulder pulleys AAROM flexion Standing Exercise Name flexion Side right Resistance none Equipment Used shoulder pulleys Reps/Minutes 5 minutes Comments facing away from wall 2 Standing Exercise Name scapular retraction Side bilateral Equipment Used mirror Reps/Minutes 10 Comments emphasis on avoiding upper trap activation Manual Therapy Treatment Soft Tissue Mobilization STM Body Location upper traps, levator R Intensity/Depth Moderate Body Position Hooklying pectoralis minor Mobilization Type Sustained Pressure Intensity/Depth Moderate Body Position Supine Comments gentle pressure R pectoralis minor x 5 minutes manual pectoralis stretch Body Location B shoulders Mobilization Type Sustained Pressure Intensity/Depth Superficial Body Position Supine Comments 3 x 30 second holds Taping lower trap facilitation Body Location right lower trap Treatment Focus facilitation Type of Tape Kinesio Tape Comments crossing inferior angle of scapulato front of shoulder PT-OP-T Assessment and Plan Start: 03/23/18 11:44 Freq: Status: Active Protocol: Document 04/27/18 15:17 [facility] (Rec: 04/27/18 16:29 [facility] [id number]) Physical Therapy Assessment Goals Four Impairment ADL's Short Term Goal (STG) Pt will have improved quickDASH score to no greater than 20% disability to indicate improved function STG Duration 8 weeks Three Impairment strength Short Term Goal (STG) Pt will have 5/5 strength in rotator cuff muscles. STG Duration 6 weeks Two Impairment pain Short Term Goal (STG) Pt will tolerate activities of daily living (such as lifting a tea kettle) with 0/10 pain in R shoulder. STG Duration 4 weeks One Impairment ROM Short Term Goal (STG) Pt will demonstrate full end range R shoulder flexion ROM without pain. STG Duration 3 weeks Progress Towards Goals Progress Towards Goals Progressing Toward Goals Progress Comments Improving postural awareness, pain variable. Assessment Summary Assessment Scapulohumeral rhythm impaired with weakness of scapular musculature. Physical Therapy Plan Frequency and Duration Frequency of Treatment 1x/Week Duration of Treatment 8 weeks Plan of Care Start Date 03/22/18 Plan of Care End Date 06/01/18 Next Visit Focus/Plan Next Note Type Treatment Note Next Visit Plan attempt to progress isometrics if tolerable. Evaluate response to kinesiotape
--- NOTE | 2018-05-04 17:27 | PT.OTN ---
Current Diagnoses Strain of unspecified muscle, fascia and tendon at shoulder and upper arm level, right arm, initial encounter (05/04/18) Physical Therapy Treatment Note PT-OP-A Visit Information Start: 03/23/18 11:44 Freq: Status: Active Protocol: Document 05/04/18 17:22 [facility] (Rec: 05/04/18 17:27 [facility] [email or web address]) Out-Patient Physical Therapy Visit Information Visit Information Visit Type Treatment Note Visit Start Time 14:00 Visit Stop Time 14:30 Total Visit Minutes 30 Visit Number 7 Number of TOLL LINE INSPECTOR Visits 0 PT-OP-B Current Condition Start: 03/23/18 11:44 Freq: Status: Active Protocol: Document 03/22/18 12:50 MDD (Rec: 03/23/18 12:20 MDD [email or web address]) Current Condition History of Current Condition Onset Date 3 months ago Current Complaints R neck, shoulder and arm pain - radiates into lateral forearm and thumb History of Current Condition Incidious onset 3 months ago. Pain is intermittent and described as dull and achy. Occaisionally radiates into forearm, wrist and R thumb. 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 Denies previous neck injury or MVA history. Reports that when pain began, all of her joints would hurt intermittently, but now the shoulder pain has continued. Aggravating factors include reaching overhead, lifting laundry detergent or a tea kettle and lifting/carrying a heavy bag of groceries. She is able to sleep on that side. Massage is helpful (goes once a month). No imaging. Prior Treatments and Tests tylenol, icing intermittently. client care representative has been helpful for neck pain, but not shoulder Prior Functional Status Baseline Function- ADL's Independent Baseline Function- Mobility Independent Baseline Function- Recreation/Hobbies Lifting great grandson ( roughly 15#). Was attending a fitness center a few times a week, walking the dog, gardening. 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 She states she does like the tape and it is still on. PT-OP-F Manual Assessment Start: 03/23/18 11:44 Freq: Status: Active Protocol: Document 03/22/18 12:50 MDD (Rec: 03/23/18 12:20 MDD [email or web address]) Manual Assessments Soft Tissue Assessment Soft Tissue Mobility Assessment Significant tightness in B upper trapezii, R>L. PT-OP-J Posture/Palpation/Skin Start: 03/23/18 11:44 Freq: Status: Active Protocol: Document 03/22/18 12:50 MDD (Rec: 03/23/18 12:20 MDD [email or web address]) Posture Evaluation Position Sitting Evaluation View Lateral Head/C-Spine Posture Flexed C-Spine Flattened Forward Head T-Spine Posture Increased Kyphosis Thorax Posture Neutral Shoulder Posture (L) Rounded (R) Rounded (R) Elevated Shoulder Subluxation Position (L) Neutral (R) Neutral Scapula Posture (R) Protracted (R) Elevated (R) Winged Arm Posture (R) Internally Rotated Palpation Assessment Location One Palpation Location coracoid process Palpation Findings Tenderness Palpation Details R coracoid process tender to palpation PT-OP-K Range of Motion Start: 03/23/18 11:44 Freq: Status: Active Protocol: Document 03/22/18 12:50 MDD (Rec: 03/23/18 12:20 MDD [email or web address]) Cervical Spine Range of Motion Cervical Spine Passive Testing Position Supine ROM Limitations Soft Tissue Tightness Comments Passive movements wfl in all motions, slightly greater than active Active Testing Position Sitting ROM Limitations Soft Tissue Tightness Comments all movements within normal limits, R mild limitation and pain with R rotation Shoulder Goniometric Range of Motion Shoulder Measured in Degrees Left Active Shoulder ROM WFL Yes Testing Position Sitting Flexion 145 Abduction 160 Right Active Shoulder ROM WFL Yes Testing Position Sitting Flexion 142 Abduction 100 Shoulder ROM Limitations Shoulder ROM Limitations Soft Tissue Tightness Comments Functional ER with hands behind head wnl. Functional IR wnl, but causes mild stretch sensation anterior shoulder PT-OP-L Special Tests Start: 03/23/18 11:44 Freq: Status: Active Protocol: Document 03/22/18 12:50 MDD (Rec: 03/23/18 12:20 MDD [email or web address]) Special Tests Cervical Spine Special Tests Spurling's Test Test Results negative B Comments no re-creation of radiating pain into thumb/forearm Shoulder Special Tests Empty Can Test Results positive Speed's Biceps Test Results negative Biceps Load II Test Test Results negative Rebollar Francis Impingement Test Results positive R PT-OP-M Strength Start: 03/23/18 11:44 Freq: Status: Active Protocol: Document 03/22/18 12:50 MDD (Rec: 03/23/18 12:20 MDD [email or web address]) Shoulder Strength Shoulder Manual Muscle Testing Left Flexion 5 Normal Abduction (C5) 5 Normal External Rotation 4+ Good+ Internal Rotation 5 Normal Right External Rotation 4 Good Internal Rotation 5 Normal Reason Not Measured Pain Comments abduction/flexion not tested due to pain with active movement PT-OP-Q Treatments Start: 03/23/18 11:44 Freq: Status: Active Protocol: Document 05/04/18 17:22 [facility] (Rec: 05/04/18 17:27 [facility] [email or web address]) Therapeutic Exercises Supine Exercises pectoralis stretch on foam roll Side bilateral Equipment Used 1/2 foam roll Reps/Minutes 3 minutes Comments snow angels, gradually moving arms into abduction Sitting Exercises cervical stretches Sitting Exercise Name levator scapulae and UT stretches Side right Reps/Minutes 2 x 30 seconds each Standing Exercises shoulder pulleys AAROM flexion Standing Exercise Name flexion Side right Resistance none Equipment Used shoulder pulleys Reps/Minutes 5 minutes Comments facing away from wall Manual Therapy Treatment Soft Tissue Mobilization STM Body Location upper traps, levator R Intensity/Depth Moderate Body Position Prone Joint Mobilizations Thoracic spine Joint T4,5 Direction PA's Grade III Body Position Prone Reps/Duration 3 x 45 second bouts PT-OP-T Assessment and Plan Start: 03/23/18 11:44 Freq: Status: Active Protocol: Document 05/04/18 17:22 AMH (Rec: 05/04/18 17:27 [facility] [email or web address]) Physical Therapy Assessment Assessment Summary Assessment tightness right > left pec minor. I reviewed thoracic mobility exercises with Senia and worked on thoracic mobilizations. RC weakness R > L Physical Therapy Plan Frequency and Duration Frequency of Treatment 1x/Week Duration of Treatment 8 weeks Plan of Care Start Date 03/22/18 Plan of Care End Date 06/01/18 Therapeutic Interventions Therapeutic Interventions Home Exercise Program Joint Mobilizations Manual Therapy Neuromuscular Re-education Self-Care/Home Management Soft Tissue Mobilization Therapeutic Exercises Next Visit Focus/Plan Next Note Type Treatment Note Next Visit Plan progress rotator cuff and stretching program
--- NOTE | 2018-05-13 16:11 | PT.OTN ---
Current Diagnoses Strain of unspecified muscle, fascia and tendon at shoulder and upper arm level, right arm, initial encounter (05/13/18) Physical Therapy Treatment Note PT-OP-A Visit Information Start: 03/23/18 11:44 Freq: Status: Active Protocol: Document 05/13/18 16:03 AM[facility] (Rec: 05/13/18 16:11 [facility] [email or web address]) Out-Patient Physical Therapy Visit Information Visit Information Visit Type Treatment Note Visit Start Time 02:30 Visit Stop Time 03:15 Total Visit Minutes 45 Visit Number 8 Number of DECISION ANALYST Visits 0 Evaluation Information Evaluation Date 03/22/18 PT-OP-B Current Condition Start: 03/23/18 11:44 Freq: Status: Active Protocol: Document 03/22/18 12:50 MDD (Rec: 03/23/18 12:20 MDD [email or web address]) Current Condition History of Current Condition Onset Date 3 months ago Current Complaints R neck, shoulder and arm pain - radiates into lateral forearm and thumb History of Current Condition Incidious onset 3 months ago. Pain is intermittent and described as dull and achy. Occaisionally radiates into forearm, wrist and R thumb. 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 Denies previous neck injury or MVA history. Reports that when pain began, all of her joints would hurt intermittently, but now the shoulder pain has continued. Aggravating factors include reaching overhead, lifting laundry detergent or a tea kettle and lifting/carrying a heavy bag of groceries. She is able to sleep on that side. Massage is helpful (goes once a month). No imaging. Prior Treatments and Tests tylenol, icing intermittently. director day care center has been helpful for neck pain, but not shoulder Prior Functional Status Baseline Function- ADL's Independent Baseline Function- Mobility Independent Baseline Function- Recreation/Hobbies Lifting great grandson ( roughly 15#). Was attending a fitness center a few times a week, walking the dog, gardening. 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 PT-OP-C Subjective Start: 03/23/18 11:44 Freq: Status: Active Protocol: Document 05/13/18 16:03 AMH (Rec: 05/13/18 16:11 [facility] [email or web address]) OP-PT Subjective Patient Comments Patient Comments Senia reports she had tried to find her foam roll at home but couldn't find it so she has been using a towel roll instead to stretch her mid back Patient Reported Progress Improving PT-OP-F Manual Assessment Start: 03/23/18 11:44 Freq: Status: Active Protocol: Document 03/22/18 12:50 MDD (Rec: 03/23/18 12:20 MDD [email or web address]) Manual Assessments Soft Tissue Assessment Soft Tissue Mobility Assessment Significant tightness in B upper trapezii, R>L. PT-OP-J Posture/Palpation/Skin Start: 03/23/18 11:44 Freq: Status: Active Protocol: Document 03/22/18 12:50 MDD (Rec: 03/23/18 12:20 MDD [email or web address]) Posture Evaluation Position Sitting Evaluation View Lateral Head/C-Spine Posture Flexed C-Spine Flattened Forward Head T-Spine Posture Increased Kyphosis Thorax Posture Neutral Shoulder Posture (L) Rounded (R) Rounded (R) Elevated Shoulder Subluxation Position (L) Neutral (R) Neutral Scapula Posture (R) Protracted (R) Elevated (R) Winged Arm Posture (R) Internally Rotated Palpation Assessment Location One Palpation Location coracoid process Palpation Findings Tenderness Palpation Details R coracoid process tender to palpation PT-OP-K Range of Motion Start: 03/23/18 11:44 Freq: Status: Active Protocol: Document 03/22/18 12:50 MDD (Rec: 03/23/18 12:20 MDD [email or web address]) Cervical Spine Range of Motion Cervical Spine Passive Testing Position Supine ROM Limitations Soft Tissue Tightness Comments Passive movements wfl in all motions, slightly greater than active Active Testing Position Sitting ROM Limitations Soft Tissue Tightness Comments all movements within normal limits, R mild limitation and pain with R rotation Shoulder Goniometric Range of Motion Shoulder Measured in Degrees Left Active Shoulder ROM WFL Yes Testing Position Sitting Flexion 145 Abduction 160 Right Active Shoulder ROM WFL Yes Testing Position Sitting Flexion 142 Abduction 100 Shoulder ROM Limitations Shoulder ROM Limitations Soft Tissue Tightness Comments Functional ER with hands behind head wnl. Functional IR wnl, but causes mild stretch sensation anterior shoulder PT-OP-L Special Tests Start: 03/23/18 11:44 Freq: Status: Active Protocol: Document 03/22/18 12:50 MDD (Rec: 03/23/18 12:20 MDD [email or web address]) Special Tests Cervical Spine Special Tests Spurling's Test Test Results negative B Comments no re-creation of radiating pain into thumb/forearm Shoulder Special Tests Empty Can Test Results positive Speed's Biceps Test Results negative Biceps Load II Test Test Results negative Rebollar Francis Impingement Test Results positive R PT-OP-M Strength Start: 03/23/18 11:44 Freq: Status: Active Protocol: Document 03/22/18 12:50 MDD (Rec: 03/23/18 12:20 MDD [email or web address]) Shoulder Strength Shoulder Manual Muscle Testing Left Flexion 5 Normal Abduction (C5) 5 Normal External Rotation 4+ Good+ Internal Rotation 5 Normal Right External Rotation 4 Good Internal Rotation 5 Normal Reason Not Measured Pain Comments abduction/flexion not tested due to pain with active movement PT-OP-Q Treatments Start: 03/23/18 11:44 Freq: Status: Active Protocol: Document 05/13/18 16:03 AMH (Rec: 05/13/18 16:11 [facility] [email or web address]) Therapeutic Exercises Supine Exercises 1 Supine Exercise Name shoulder flex Equipment Used 1/2 roll Reps/Minutes 12x Comments with manual lat release pectoralis stretch on foam roll Side bilateral Equipment Used 1/2 foam roll Reps/Minutes 3 minutes Comments snow angels, gradually moving arms into abduction Sitting Exercises 2 Sitting Exercise Name seated sidebends cervical stretches Sitting Exercise Name levator scapulae and UT stretches Side right Reps/Minutes 2 x 30 seconds each Standing Exercises 4 Standing Exercise Name standing rows and shoulder extension Reps/Minutes 3 x10 level 1 theraband shoulder pulleys AAROM flexion Standing Exercise Name flexion Side right Resistance none Equipment Used shoulder pulleys Reps/Minutes 5 minutes Comments facing away from wall Manual Therapy Treatment Soft Tissue Mobilization STM Body Location upper traps, levator R Intensity/Depth Moderate Body Position Prone Manual Techniques 1 Type manual thoracic spine mobilizations Comments PA glides upper thoracic spine PT-OP-T Assessment and Plan Start: 03/23/18 11:44 Freq: Status: Active Protocol: Document 05/13/18 16:03 [facility] (Rec: 05/13/18 16:11 [facility] [email or web address]) Physical Therapy Assessment Assessment Summary Assessment tolerating new exercises well, needs continued work or thoracic segmental mobility Physical Therapy Plan Frequency and Duration Frequency of Treatment 1x/Week Duration of Treatment 8 weeks Plan of Care Start Date 03/22/18 Plan of Care End Date 06/01/18 Therapeutic Interventions Therapeutic Interventions Home Exercise Program Joint Mobilizations Manual Therapy Neuromuscular Re-education Self-Care/Home Management Soft Tissue Mobilization Therapeutic Exercises Next Visit Focus/Plan Next Note Type Treatment Note Next Visit Plan progress rotator cuff and stretching program
--- NOTE | 2018-05-18 10:30 | PT.OTN ---
Current Diagnoses Strain of unspecified muscle, fascia and tendon at shoulder and upper arm level, right arm, initial encounter (05/18/18) Physical Therapy Treatment Note PT-OP-A Visit Information Start: 03/23/18 11:44 Freq: Status: Active Protocol: Document 05/18/18 10:30 AMB (Rec: 05/19/18 07:46 AMB [email or web address]) Out-Patient Physical Therapy Visit Information Visit Information Visit Type Treatment Note Visit Start Time 10:30 Visit Stop Time 11:15 Total Visit Minutes 45 Visit Number 9 Number of MECHANICAL DRAFTER Visits 0 PT-OP-B Current Condition Start: 03/23/18 11:44 Freq: Status: Active Protocol: Document 03/22/18 12:50 MDD (Rec: 03/23/18 12:20 MDD [email or web address]) Current Condition History of Current Condition Onset Date 3 months ago Current Complaints R neck, shoulder and arm pain - radiates into lateral forearm and thumb History of Current Condition Incidious onset 3 months ago. Pain is intermittent and described as dull and achy. Occaisionally radiates into forearm, wrist and R thumb. 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 Denies previous neck injury or MVA history. Reports that when pain began, all of her joints would hurt intermittently, but now the shoulder pain has continued. Aggravating factors include reaching overhead, lifting laundry detergent or a tea kettle and lifting/carrying a heavy bag of groceries. She is able to sleep on that side. Massage is helpful (goes once a month). No imaging. Prior Treatments and Tests tylenol, icing intermittently. care attendant has been helpful for neck pain, but not shoulder Prior Functional Status Baseline Function- ADL's Independent Baseline Function- Mobility Independent Baseline Function- Recreation/Hobbies Lifting great grandson ( roughly 15#). Was attending a fitness center a few times a week, walking the dog, gardening. 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 Going to try to see the chiropractor next week. PT-OP-F Manual Assessment Start: 03/23/18 11:44 Freq: Status: Active Protocol: Document 03/22/18 12:50 MDD (Rec: 03/23/18 12:20 MDD [email or web address]) Manual Assessments Soft Tissue Assessment Soft Tissue Mobility Assessment Significant tightness in B upper trapezii, R>L. PT-OP-J Posture/Palpation/Skin Start: 03/23/18 11:44 Freq: Status: Active Protocol: Document 03/22/18 12:50 MDD (Rec: 03/23/18 12:20 MDD [email or web address]) Posture Evaluation Position Sitting Evaluation View Lateral Head/C-Spine Posture Flexed C-Spine Flattened Forward Head T-Spine Posture Increased Kyphosis Thorax Posture Neutral Shoulder Posture (L) Rounded (R) Rounded (R) Elevated Shoulder Subluxation Position (L) Neutral (R) Neutral Scapula Posture (R) Protracted (R) Elevated (R) Winged Arm Posture (R) Internally Rotated Palpation Assessment Location One Palpation Location coracoid process Palpation Findings Tenderness Palpation Details R coracoid process tender to palpation PT-OP-K Range of Motion Start: 03/23/18 11:44 Freq: Status: Active Protocol: Document 03/22/18 12:50 MDD (Rec: 03/23/18 12:20 MDD [email or web address]) Cervical Spine Range of Motion Cervical Spine Passive Testing Position Supine ROM Limitations Soft Tissue Tightness Comments Passive movements wfl in all motions, slightly greater than active Active Testing Position Sitting ROM Limitations Soft Tissue Tightness Comments all movements within normal limits, R mild limitation and pain with R rotation Shoulder Goniometric Range of Motion Shoulder Measured in Degrees Left Active Shoulder ROM WFL Yes Testing Position Sitting Flexion 145 Abduction 160 Right Active Shoulder ROM WFL Yes Testing Position Sitting Flexion 142 Abduction 100 Shoulder ROM Limitations Shoulder ROM Limitations Soft Tissue Tightness Comments Functional ER with hands behind head wnl. Functional IR wnl, but causes mild stretch sensation anterior shoulder PT-OP-L Special Tests Start: 03/23/18 11:44 Freq: Status: Active Protocol: Document 03/22/18 12:50 MDD (Rec: 03/23/18 12:20 MDD [email or web address]) Special Tests Cervical Spine Special Tests Spurling's Test Test Results negative B Comments no re-creation of radiating pain into thumb/forearm Shoulder Special Tests Empty Can Test Results positive Speed's Biceps Test Results negative Biceps Load II Test Test Results negative Rebollar Francis Impingement Test Results positive R PT-OP-M Strength Start: 03/23/18 11:44 Freq: Status: Active Protocol: Document 03/22/18 12:50 MDD (Rec: 03/23/18 12:20 MDD [email or web address]) Shoulder Strength Shoulder Manual Muscle Testing Left Flexion 5 Normal Abduction (C5) 5 Normal External Rotation 4+ Good+ Internal Rotation 5 Normal Right External Rotation 4 Good Internal Rotation 5 Normal Reason Not Measured Pain Comments abduction/flexion not tested due to pain with active movement PT-OP-Q Treatments Start: 03/23/18 11:44 Freq: Status: Active Protocol: Document 05/18/18 10:30 AMB (Rec: 05/19/18 07:46 AMB [email or web address]) Therapeutic Exercises Supine Exercises 1 Supine Exercise Name shoulder flex Equipment Used 1/2 roll Reps/Minutes 12x Comments with manual lat release pectoralis stretch on foam roll Side bilateral Equipment Used 1/2 foam roll Reps/Minutes 3 minutes Comments snow angels, gradually moving arms into abduction Sitting Exercises 2 Sitting Exercise Name seated sidebends Reps/Minutes 10 cervical stretches Sitting Exercise Name levator scapulae and UT stretches Side right Reps/Minutes 2 x 30 seconds each Standing Exercises 4 Standing Exercise Name standing rows and shoulder extension Reps/Minutes 3 x10 level 2 theraband shoulder ER Resistance L1 TB Reps/Minutes 10 resisted rows Side bilateral Resistance L2 t-band Reps/Minutes 2 x 15 Comments emphasis on keeping upper traps relaxed throughout shoulder pulleys AAROM flexion Standing Exercise Name flexion Side right Resistance none Equipment Used shoulder pulleys Reps/Minutes 5 minutes Comments facing away from wall Manual Therapy Treatment Soft Tissue Mobilization STM Body Location upper traps, levator R Intensity/Depth Moderate Body Position Prone Joint Mobilizations Thoracic spine Joint T4,5 Direction PA's Grade III Body Position Prone Reps/Duration 3 x 45 second bouts PT-OP-R Modalities Start: 03/23/18 11:44 Freq: Status: Active Protocol: Document 05/18/18 10:30 AMB (Rec: 05/19/18 07:49 AMB [email or web address]) Hot Pack/Cold Pack Treatment Hot Pack Location upper back, neck Patient Position Prone Treatment Duration (minutes) 10 Patient Tolerance Good PT-OP-T Assessment and Plan Start: 03/23/18 11:44 Freq: Status: Active Protocol: Document 05/18/18 10:30 AMB (Rec: 05/19/18 07:46 AMB [email or web address]) Physical Therapy Assessment Assessment Summary Assessment Pt feels overall she is improving, but has plateaued in the last week, encouraged in awareness of shoulder positioning to avoid overuse of neck musculature. Physical Therapy Plan Next Visit Focus/Plan Next Note Type Treatment Note Next Visit Plan G codes next visit; Progress rotator cuff , postural exercises.
--- NOTE | 2018-05-26 16:31 | PT.OTRE ---
Current Diagnoses Strain of unspecified muscle, fascia and tendon at shoulder and upper arm level, right arm, initial encounter (05/26/18) Past Medical History (Last Updated 02/02/18 @ 15:03 by Lynnette Noe) Mixed basal-squamous cell carcinoma (Resolved) Surgical History (Last Updated 02/02/18 @ 15:02 by Lynnette Noe) History of tonsillectomy (~1948) Status post cone biopsy of cervix (~1989) Provider Visit Care Team Role Provider Type Che Lopez DO Attending Provider Physician Primary Care Provider Specialty: Family Practice Address: [address] [place] [address], [facility] Email: [email or web address] Physical Therapy Re-Evaluation PT-OP-A Visit Information Start: 03/23/18 11:44 Freq: Status: Active Protocol: Document 05/26/18 16:15 SAK (Rec: 05/26/18 16:30 SAK [id number]) Out-Patient Physical Therapy Visit Information Visit Information Visit Type Treatment Note Visit Start Time 14:30 Visit Stop Time 15:25 Total Visit Minutes 55 Visit Number 10 Number of SAMPLE BUILDER Visits 0 Evaluation Information Evaluation Date 03/22/18 PT-OP-B Current Condition Start: 03/23/18 11:44 Freq: Status: Active Protocol: Document 03/22/18 12:50 MDD (Rec: 03/23/18 12:20 MDD [email or web address]) Current Condition History of Current Condition Onset Date 3 months ago Current Complaints R neck, shoulder and arm pain - radiates into lateral forearm and thumb History of Current Condition Incidious onset 3 months ago. Pain is intermittent and described as dull and achy. Occaisionally radiates into forearm, wrist and R thumb. 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 Denies previous neck injury or MVA history. Reports that when pain began, all of her joints would hurt intermittently, but now the shoulder pain has continued. Aggravating factors include reaching overhead, lifting laundry detergent or a tea kettle and lifting/carrying a heavy bag of groceries. She is able to sleep on that side. Massage is helpful (goes once a month). No imaging. Prior Treatments and Tests tylenol, icing intermittently. day care home provider has been helpful for neck pain, but not shoulder Prior Functional Status Baseline Function- ADL's Independent Baseline Function- Mobility Independent Baseline Function- Recreation/Hobbies Lifting great elena ( roughly 15#). Was attending a fitness center a few times a week, walking the dog, gardening. 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, picker/puller items heavier than 10# without pain PT-OP-C Subjective Start: 03/23/18 11:44 Freq: Status: Active Protocol: Document 05/26/18 16:15 SAK (Rec: 05/26/18 16:30 SAK [id number]) OP-PT Subjective Patient Comments Patient Comments Better than when I started. Hasn't done much exercise past few day due to being out of town. PT-OP-F Manual Assessment Start: 03/23/18 11:44 Freq: Status: Active Protocol: Document 03/22/18 12:50 MDD (Rec: 03/23/18 12:20 MDD [email or web address]) Manual Assessments Soft Tissue Assessment Soft Tissue Mobility Assessment Significant tightness in B upper trapezii, R>L. PT-OP-J Posture/Palpation/Skin Start: 03/23/18 11:44 Freq: Status: Active Protocol: Document 03/22/18 12:50 MDD (Rec: 03/23/18 12:20 MDD [email or web address]) Posture Evaluation Position Sitting Evaluation View Lateral Head/C-Spine Posture Flexed C-Spine Flattened Forward Head T-Spine Posture Increased Kyphosis Thorax Posture Neutral Shoulder Posture (L) Rounded (R) Rounded (R) Elevated Shoulder Subluxation Position (L) Neutral (R) Neutral Scapula Posture (R) Protracted (R) Elevated (R) Winged Arm Posture (R) Internally Rotated Palpation Assessment Location One Palpation Location coracoid process Palpation Findings Tenderness Palpation Details R coracoid process tender to palpation PT-OP-K Range of Motion Start: 03/23/18 11:44 Freq: Status: Active Protocol: Document 03/22/18 12:50 MDD (Rec: 03/23/18 12:20 MDD [email or web address]) Cervical Spine Range of Motion Cervical Spine Passive Testing Position Supine ROM Limitations Soft Tissue Tightness Comments Passive movements wfl in all motions, slightly greater than active Active Testing Position Sitting ROM Limitations Soft Tissue Tightness Comments all movements within normal limits, R mild limitation and pain with R rotation Shoulder Goniometric Range of Motion Shoulder Measured in Degrees Left Active Shoulder ROM WFL Yes Testing Position Sitting Flexion 145 Abduction 160 Right Active Shoulder ROM WFL Yes Testing Position Sitting Flexion 142 Abduction 100 Shoulder ROM Limitations Shoulder ROM Limitations Soft Tissue Tightness Comments Functional ER with hands behind head wnl. Functional IR wnl, but causes mild stretch sensation anterior shoulder PT-OP-L Special Tests Start: 03/23/18 11:44 Freq: Status: Active Protocol: Document 03/22/18 12:50 MDD (Rec: 03/23/18 12:20 MDD [email or web address]) Special Tests Cervical Spine Special Tests Spurling's Test Test Results negative B Comments no re-creation of radiating pain into thumb/forearm Shoulder Special Tests Empty Can Test Results positive Speed's Biceps Test Results negative Biceps Load II Test Test Results negative Rebollar Francis Impingement Test Results positive R PT-OP-M Strength Start: 03/23/18 11:44 Freq: Status: Active Protocol: Document 03/22/18 12:50 MDD (Rec: 03/23/18 12:20 MDD [email or web address]) Shoulder Strength Shoulder Manual Muscle Testing Left Flexion 5 Normal Abduction (C5) 5 Normal External Rotation 4+ Good+ Internal Rotation 5 Normal Right External Rotation 4 Good Internal Rotation 5 Normal Reason Not Measured Pain Comments abduction/flexion not tested due to pain with active movement PT-OP-Q Treatments Start: 03/23/18 11:44 Freq: Status: Active Protocol: Document 05/26/18 16:15 SAK (Rec: 05/26/18 16:30 SAK [id number]) Therapeutic Exercises Supine Exercises 1 Supine Exercise Name shoulder flex Equipment Used 1/2 roll Reps/Minutes 10x Comments with manual lat release pectoralis stretch on foam roll Side bilateral Equipment Used 1/2 foam roll Reps/Minutes 2 minutes Sidelying Exercises scapular clocks Resistance manual resistance Reps/Minutes 4 min Sitting Exercises scapular clocks Resistance manual 2 Sitting Exercise Name seated sidebends Reps/Minutes 10 cervical stretches Sitting Exercise Name levator scapulae and UT stretches Side right Reps/Minutes 2 x 30 seconds each Standing Exercises resisted rows Side bilateral Resistance L2 t-band Reps/Minutes 2 x 15 Comments emphasis on keeping upper traps relaxed throughout Resisted shoulder IR Side right Resistance Level 2 t-band Equipment Used mirror Reps/Minutes 2 x 15 reps shoulder pulleys AAROM flexion Standing Exercise Name flexion Side right Resistance none Equipment Used shoulder pulleys Reps/Minutes 5 minutes Comments facing away from wall Manual Therapy Treatment Soft Tissue Mobilization STM Body Location upper traps, levator R Intensity/Depth Moderate Body Position Prone Manual Techniques 1 Type manual thoracic spine mobilizations Comments PA glides upper thoracic spine Self-Care/Home Management Treatment Education Patient Education Posture Other Education use of 2 tennis balls for soft tissue mobilization and release PT-OP-R Modalities Start: 03/23/18 11:44 Freq: Status: Active Protocol: Document 05/26/18 16:15 SAK (Rec: 05/26/18 16:30 SAK [id number]) Hot Pack/Cold Pack Treatment Hot Pack Location upper back, neck Patient Position Supine Treatment Duration (minutes) 15 Patient Tolerance Good PT-OP-T Assessment and Plan Start: 03/23/18 11:44 Freq: Status: Active Protocol: Document 05/26/18 16:15 SAK (Rec: 05/26/18 16:30 [facility] [id number]) Physical Therapy Assessment Goals Four Impairment ADL's Residential Goal (LTG) Pt will have improved quickDASH score to no greater than 20% disability to indicate improved function ( goal progress) LTG Duration 8 weeks Three Impairment strength Residential Goal (LTG) Pt will have 5/5 strength in rotator cuff muscles. (goal progress) LTG Duration 4 wks Two Impairment pain Residential Goal (LTG) Pt will tolerate activities of daily living (such as lifting a tea kettle) with 0/10 pain in R neck and shoulder (goal progress) One Impairment ROM Floating Derrick Operator Goal (LTG) Pt will demonstrate full end range R shoulder flexion ROM without pain ( goal progress) LTG Duration 4 wks Progress Towards Goals Progress Towards Goals Progressing Toward Goals Progress Comments Would benefit from further PT for pain management, shoulder and scapular strengthening, pain management to address all goals. Assessment Summary Assessment Patient has elevated right scapula with decreased scapular control and movement with function Physical Therapy Plan Frequency and Duration Frequency of Treatment 1x/Week Duration of Treatment 8 weeks Plan of Care Start Date 06/01/18 Plan of Care End Date 08/01/18 Therapeutic Interventions Therapeutic Interventions Home Exercise Program Joint Mobilizations Manual Therapy Neuromuscular Re-education Self-Care/Home Management Soft Tissue Mobilization Therapeutic Exercises Next Visit Focus/Plan Next Note Type Treatment Note Next Visit Plan Increased focus on manual techniques for soft tissue mobilization and joint mobilization, scapular stabilization.
--- NOTE | 2018-05-26 16:31 | PT.OPPOC ---
Current Diagnoses Strain of unspecified muscle, fascia and tendon at shoulder and upper arm level, right arm, initial encounter (05/26/18) Provider Visit Care Team Role Provider Type Che Lopez DO Attending Provider Physician Primary Care Provider Specialty: [facility] Address: [address] [place] [address], [id number] Email: [email or web address] Plan Of Care PT-OP-T Assessment and Plan Start: 03/23/18 11:44 Freq: Status: Active Protocol: Document 05/26/18 16:15 SAK (Rec: 05/26/18 16:30 SAK [id number]) Physical Therapy Assessment Goals Four Impairment ADL's Kiln Cleaner Goal (LTG) Pt will have improved quickDASH score to no greater than 20% disability to indicate improved function ( goal progress) LTG Duration 8 weeks Three Impairment strength Residential Goal (LTG) Pt will have 5/5 strength in rotator cuff muscles. (goal progress) LTG Duration 4 wks Two Impairment pain Kiln Cleaner Goal (LTG) Pt will tolerate activities of daily living (such as lifting a tea kettle) with 0/10 pain in R neck and shoulder (goal progress) One Impairment ROM Residential Goal (LTG) Pt will demonstrate full end range R shoulder flexion ROM without pain ( goal progress) LTG Duration 4 wks Progress Towards Goals Progress Towards Goals Progressing Toward Goals Progress Comments Would benefit from further PT for pain management, shoulder and scapular strengthening, pain management to address all goals. Assessment Summary Assessment Patient has elevated right scapula with decreased scapular control and movement with function Physical Therapy Plan Frequency and Duration Frequency of Treatment 1x/Week Duration of Treatment 8 weeks Plan of Care Start Date 06/01/18 Plan of Care End Date 08/01/18 Therapeutic Interventions Therapeutic Interventions Home Exercise Program Joint Mobilizations Manual Therapy Neuromuscular Re-education Self-Care/Home Management Soft Tissue Mobilization Therapeutic Exercises Next Visit Focus/Plan Next Note Type Treatment Note Next Visit Plan Increased focus on manual techniques for soft tissue mobilization and joint mobilization, scapular stabilization. Plan of Care Dates Plan of Care Start Date 06/01/18 Plan of Care End Date 08/01/18 Please Sign and Return: I have reviewed this Plan of Care and certify that the skilled therapy services above are required to meet the patient?s needs. Physician Signature Date Printed Name and Credentials Clinical Instructor Signature Printed Name and Credentials
--- NOTE | 2018-06-03 09:21 | PT.OTN ---
Current Diagnoses Strain of unspecified muscle, fascia and tendon at shoulder and upper arm level, right arm, initial encounter (06/03/18) Physical Therapy Treatment Note PT-OP-A Visit Information Start: 03/23/18 11:44 Freq: Status: Active Protocol: Document 06/03/18 08:14 SAK (Rec: 06/03/18 09:21 SAK [id number]) Out-Patient Physical Therapy Visit Information Visit Information Visit Type Treatment Note Visit Start Time 08:15 Visit Stop Time 09:10 Total Visit Minutes 55 Visit Number 11 Number of DRUM DYEING MACHINE OPERATOR Visits 0 Evaluation Information Evaluation Date 03/22/18 PT-OP-B Current Condition Start: 03/23/18 11:44 Freq: Status: Active Protocol: Document 03/22/18 12:50 MDD (Rec: 03/23/18 12:20 MDD [email or web address]) Current Condition History of Current Condition Onset Date 3 months ago Current Complaints R neck, shoulder and arm pain - radiates into lateral forearm and thumb History of Current Condition Incidious onset 3 months ago. Pain is intermittent and described as dull and achy. Occaisionally radiates into forearm, wrist and R thumb. 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 Denies previous neck injury or MVA history. Reports that when pain began, all of her joints would hurt intermittently, but now the shoulder pain has continued. Aggravating factors include reaching overhead, lifting laundry detergent or a tea kettle and lifting/carrying a heavy bag of groceries. She is able to sleep on that side. Massage is helpful (goes once a month). No imaging. Prior Treatments and Tests tylenol, icing intermittently. intensive care nurse has been helpful for neck pain, but not shoulder Prior Functional Status Baseline Function- ADL's Independent Baseline Function- Mobility Independent Baseline Function- Recreation/Hobbies Lifting great grandson ( roughly 15#). Was attending a fitness center a few times a week, walking the dog, gardening. 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, pickle maker items heavier than 10# without pain PT-OP-C Subjective Start: 03/23/18 11:44 Freq: Status: Active Protocol: Document 06/03/18 08:14 SAK (Rec: 06/03/18 09:21 SAK [id number]) OP-PT Subjective Patient Comments Patient Comments A little overwhelmed with number of exercises. 4 day workshop, not much exercise PT-OP-F Manual Assessment Start: 03/23/18 11:44 Freq: Status: Active Protocol: Document 03/22/18 12:50 MDD (Rec: 03/23/18 12:20 MDD [email or web address]) Manual Assessments Soft Tissue Assessment Soft Tissue Mobility Assessment Significant tightness in B upper trapezii, R>L. PT-OP-J Posture/Palpation/Skin Start: 03/23/18 11:44 Freq: Status: Active Protocol: Document 03/22/18 12:50 MDD (Rec: 03/23/18 12:20 MDD [email or web address]) Posture Evaluation Position Sitting Evaluation View Lateral Head/C-Spine Posture Flexed C-Spine Flattened Forward Head T-Spine Posture Increased Kyphosis Thorax Posture Neutral Shoulder Posture (L) Rounded (R) Rounded (R) Elevated Shoulder Subluxation Position (L) Neutral (R) Neutral Scapula Posture (R) Protracted (R) Elevated (R) Winged Arm Posture (R) Internally Rotated Palpation Assessment Location One Palpation Location coracoid process Palpation Findings Tenderness Palpation Details R coracoid process tender to palpation PT-OP-K Range of Motion Start: 03/23/18 11:44 Freq: Status: Active Protocol: Document 03/22/18 12:50 MDD (Rec: 03/23/18 12:20 MDD [email or web address]) Cervical Spine Range of Motion Cervical Spine Passive Testing Position Supine ROM Limitations Soft Tissue Tightness Comments Passive movements wfl in all motions, slightly greater than active Active Testing Position Sitting ROM Limitations Soft Tissue Tightness Comments all movements within normal limits, R mild limitation and pain with R rotation Shoulder Goniometric Range of Motion Shoulder Measured in Degrees Left Active Shoulder ROM WFL Yes Testing Position Sitting Flexion 145 Abduction 160 Right Active Shoulder ROM WFL Yes Testing Position Sitting Flexion 142 Abduction 100 Shoulder ROM Limitations Shoulder ROM Limitations Soft Tissue Tightness Comments Functional ER with hands behind head wnl. Functional IR wnl, but causes mild stretch sensation anterior shoulder PT-OP-L Special Tests Start: 03/23/18 11:44 Freq: Status: Active Protocol: Document 03/22/18 12:50 MDD (Rec: 03/23/18 12:20 MDD [email or web address]) Special Tests Cervical Spine Special Tests Spurling's Test Test Results negative B Comments no re-creation of radiating pain into thumb/forearm Shoulder Special Tests Empty Can Test Results positive Speed's Biceps Test Results negative Biceps Load II Test Test Results negative Rebollar Francis Impingement Test Results positive R PT-OP-M Strength Start: 03/23/18 11:44 Freq: Status: Active Protocol: Document 03/22/18 12:50 MDD (Rec: 03/23/18 12:20 MDD [email or web address]) Shoulder Strength Shoulder Manual Muscle Testing Left Flexion 5 Normal Abduction (C5) 5 Normal External Rotation 4+ Good+ Internal Rotation 5 Normal Right External Rotation 4 Good Internal Rotation 5 Normal Reason Not Measured Pain Comments abduction/flexion not tested due to pain with active movement PT-OP-Q Treatments Start: 03/23/18 11:44 Freq: Status: Active Protocol: Document 06/03/18 08:14 [facility] (Rec: 06/03/18 09:21 [facility] [id number]) Therapeutic Exercises Supine Exercises serratus punch Side bilateral Reps/Minutes 20x 1 Supine Exercise Name shoulder flex Equipment Used 1/2 roll Reps/Minutes 10x Comments with manual lat release pectoralis stretch on foam roll Side bilateral Equipment Used 1/2 foam roll Reps/Minutes 2 minutes Sitting Exercises 1 Sitting Exercise Name scapular clocks Resistance manual Reps/Minutes 5 min scapular clocks Resistance manual 2 Sitting Exercise Name seated sidebends Reps/Minutes 10 cervical stretches Sitting Exercise Name levator scapulae and UT stretches Side right Reps/Minutes 2 x 30 seconds each Standing Exercises 4 Standing Exercise Name standing rows and shoulder extension Reps/Minutes 3 x10 level 2 theraband shoulder ER Resistance L1 TB Reps/Minutes 10 resisted rows Side bilateral Resistance L2 t-band Reps/Minutes 2 x 15 Comments emphasis on keeping upper traps relaxed throughout Resisted shoulder IR Side right Resistance Level 2 t-band Equipment Used mirror Reps/Minutes 2 x 15 reps shoulder pulleys AAROM flexion Standing Exercise Name flexion Side right Resistance none Equipment Used shoulder pulleys Reps/Minutes 5 minutes Comments facing away from wall PT-OP-R Modalities Start: 03/23/18 11:44 Freq: Status: Active Protocol: Document 06/03/18 08:14 [facility] (Rec: 06/03/18 09:21 SAK [id number]) Hot Pack/Cold Pack Treatment Hot Pack Location upper back, neck Patient Position Supine Treatment Duration (minutes) 15 Patient Tolerance Good PT-OP-T Assessment and Plan Start: 03/23/18 11:44 Freq: Status: Active Protocol: Document 06/03/18 08:14 [facility] (Rec: 06/03/18 09:21 [facility] [id number]) Physical Therapy Assessment Goals Four Impairment ADL's [facility] Goal (LTG) Pt will have improved quickDASH score to no greater than 20% disability to indicate improved function ( goal progress) LTG Duration 8 weeks Three Impairment strength Fur Blowing Machine Attendant Goal (LTG) Pt will have 5/5 strength in rotator cuff muscles. (goal progress) LTG Duration 4 wks Two Impairment pain [facility] Goal (LTG) Pt will tolerate activities of daily living (such as lifting a tea kettle) with 0/10 pain in R neck and shoulder (goal progress) One Impairment ROM [facility] Goal (LTG) Pt will demonstrate full end range R shoulder flexion ROM without pain ( goal progress) LTG Duration 4 wks Progress Towards Goals Progress Towards Goals Progressing Toward Goals Progress Comments Needs to increase compliance to HEP, work scapular clock and stretching ex into day. Assessment Summary Assessment Improved scapular control at end of session today after emphasis on manual resistance, serratus punches. Ultrasound trial today to decrease UT muscle tension and pain. Physical Therapy Plan Frequency and Duration Frequency of Treatment 1x/Week Duration of Treatment 8 weeks Plan of Care Start Date 06/01/18 Plan of Care End Date 08/01/18 Therapeutic Interventions Therapeutic Interventions Home Exercise Program Joint Mobilizations Manual Therapy Neuromuscular Re-education Self-Care/Home Management Soft Tissue Mobilization Therapeutic Exercises Next Visit Focus/Plan Next Note Type Treatment Note Next Visit Plan Review HEP (patient to bring written program in), progress ther ex as indicated with emphasis on scapular stab.
--- NOTE | 2018-06-09 15:55 | PT.OTN ---
Current Diagnoses Strain of unspecified muscle, fascia and tendon at shoulder and upper arm level, right arm, initial encounter (06/08/18) Physical Therapy Treatment Note PT-OP-A Visit Information Start: 03/23/18 11:44 Freq: Status: Active Protocol: Document 06/08/18 08:24 SAK (Rec: 06/08/18 09:01 SAK [id number]) Out-Patient Physical Therapy Visit Information Visit Information Visit Type Treatment Note Visit Start Time 08:15 Visit Stop Time 09:10 Total Visit Minutes 55 Visit Number 12 Number of ELECTRONICS DESIGN ENGINEER Visits 0 Evaluation Information Evaluation Date 03/22/18 PT-OP-B Current Condition Start: 03/23/18 11:44 Freq: Status: Active Protocol: Document 03/22/18 12:50 MDD (Rec: 03/23/18 12:20 MDD [email or web address]) Current Condition History of Current Condition Onset Date 3 months ago Current Complaints R neck, shoulder and arm pain - radiates into lateral forearm and thumb History of Current Condition Incidious onset 3 months ago. Pain is intermittent and described as dull and achy. Occaisionally radiates into forearm, wrist and R thumb. 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 Denies previous neck injury or MVA history. Reports that when pain began, all of her joints would hurt intermittently, but now the shoulder pain has continued. Aggravating factors include reaching overhead, lifting laundry detergent or a tea kettle and lifting/carrying a heavy bag of groceries. She is able to sleep on that side. Massage is helpful (goes once a month). No imaging. Prior Treatments and Tests tylenol, icing intermittently. youth career specialist has been helpful for neck pain, but not shoulder Prior Functional Status Baseline Function- ADL's Independent Baseline Function- Mobility Independent Baseline Function- Recreation/Hobbies Lifting great grandson ( roughly 15#). Was attending a fitness center a few times a week, walking the dog, gardening. 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 OP-PT Pain Assessment Pain Assessment Grid Paper Pain Assessment Grid Completed Yes Location Shoulder Pain Location Details R anterior Intensity 3 Scale Used Numeric (1 - 10) Description Aching Dull PT-OP-F Manual Assessment Start: 03/23/18 11:44 Freq: Status: Active Protocol: Document 03/22/18 12:50 MDD (Rec: 03/23/18 12:20 MDD [email or web address]) Manual Assessments Soft Tissue Assessment Soft Tissue Mobility Assessment Significant tightness in B upper trapezii, R>L. PT-OP-J Posture/Palpation/Skin Start: 03/23/18 11:44 Freq: Status: Active Protocol: Document 03/22/18 12:50 MDD (Rec: 03/23/18 12:20 MDD [email or web address]) Posture Evaluation Position Sitting Evaluation View Lateral Head/C-Spine Posture Flexed C-Spine Flattened Forward Head T-Spine Posture Increased Kyphosis Thorax Posture Neutral Shoulder Posture (L) Rounded (R) Rounded (R) Elevated Shoulder Subluxation Position (L) Neutral (R) Neutral Scapula Posture (R) Protracted (R) Elevated (R) Winged Arm Posture (R) Internally Rotated Palpation Assessment Location One Palpation Location coracoid process Palpation Findings Tenderness Palpation Details R coracoid process tender to palpation PT-OP-K Range of Motion Start: 03/23/18 11:44 Freq: Status: Active Protocol: Document 03/22/18 12:50 MDD (Rec: 03/23/18 12:20 MDD [email or web address]) Cervical Spine Range of Motion Cervical Spine Passive Testing Position Supine ROM Limitations Soft Tissue Tightness Comments Passive movements wfl in all motions, slightly greater than active Active Testing Position Sitting ROM Limitations Soft Tissue Tightness Comments all movements within normal limits, R mild limitation and pain with R rotation Shoulder Goniometric Range of Motion Shoulder Measured in Degrees Left Active Shoulder ROM WFL Yes Testing Position Sitting Flexion 145 Abduction 160 Right Active Shoulder ROM WFL Yes Testing Position Sitting Flexion 142 Abduction 100 Shoulder ROM Limitations Shoulder ROM Limitations Soft Tissue Tightness Comments Functional ER with hands behind head wnl. Functional IR wnl, but causes mild stretch sensation anterior shoulder PT-OP-L Special Tests Start: 03/23/18 11:44 Freq: Status: Active Protocol: Document 03/22/18 12:50 MDD (Rec: 03/23/18 12:20 MDD [email or web address]) Special Tests Cervical Spine Special Tests Spurling's Test Test Results negative B Comments no re-creation of radiating pain into thumb/forearm Shoulder Special Tests Empty Can Test Results positive Speed's Biceps Test Results negative Biceps Load II Test Test Results negative Rebollar Francis Impingement Test Results positive R PT-OP-M Strength Start: 03/23/18 11:44 Freq: Status: Active Protocol: Document 03/22/18 12:50 MDD (Rec: 03/23/18 12:20 MDD [email or web address]) Shoulder Strength Shoulder Manual Muscle Testing Left Flexion 5 Normal Abduction (C5) 5 Normal External Rotation 4+ Good+ Internal Rotation 5 Normal Right External Rotation 4 Good Internal Rotation 5 Normal Reason Not Measured Pain Comments abduction/flexion not tested due to pain with active movement PT-OP-Q Treatments Start: 03/23/18 11:44 Freq: Status: Active Protocol: Document 06/08/18 08:24 SAK (Rec: 06/08/18 09:01 SAK [id number]) Cardio Equipment Upper Body Ergometer (UBE) Duration (Minutes) 5 Seat Position 11 Height 2.5 Other arm length 1 Therapeutic Exercises Supine Exercises serratus punch Side bilateral Reps/Minutes 20x 1 Supine Exercise Name shoulder flex Equipment Used 1/2 roll Reps/Minutes 10x Comments with manual lat release pectoralis stretch on foam roll Side bilateral Equipment Used 1/2 foam roll Reps/Minutes 2 minutes Comments pec breana, pec min Prone Exercises child's pose stretch Reps/Minutes 1 min Sidelying Exercises scapular clocks Resistance manual resistance Reps/Minutes 4 min reach and roll Side bilateral Reps/Minutes 5x Comments manual cues and facilitation R shoulder ER Side right Resistance against gravity Reps/Minutes 10 x 2 Sitting Exercises 1 Sitting Exercise Name scapular clocks Resistance manual Reps/Minutes 5 min 2 Sitting Exercise Name seated sidebends Reps/Minutes 10 cervical stretches Sitting Exercise Name levator scapulae and UT stretches Side right Reps/Minutes 2 x 30 seconds each Standing Exercises 4 Standing Exercise Name standing rows and shoulder extension Reps/Minutes 1x10 shoulder ER Resistance L1 TB Reps/Minutes 10x 1 Resisted shoulder IR Side right Resistance Level 2 t-band Equipment Used mirror Reps/Minutes 2 x 15 reps 3 Standing Exercise Name corner pectoralis stretch Side bilateral Reps/Minutes 2 x 30 seconds Other Exercises cat/cow Reps/Minutes 10x Manual Therapy Treatment Soft Tissue Mobilization STM Body Location upper traps, levator R Intensity/Depth Moderate Body Position Prone cervical stretches Body Location cervical Mobilization Type Other Body Position Supine Comments manual stretches to R upper traps, levator scapulae 2 x30 s each pectoralis minor Mobilization Type Sustained Pressure Intensity/Depth Moderate Body Position Supine manual pectoralis stretch Body Location B shoulders Mobilization Type Sustained Pressure Intensity/Depth Superficial Body Position Supine Joint Mobilizations R shoulder distraction Joint glenohumeral Direction distraction Grade II Body Position Supine Taping upper trap inhibition Body Location right UT Treatment Focus inhibition Type of Tape Kinesio Tape PT-OP-R Modalities Start: 03/23/18 11:44 Freq: Status: Active Protocol: Document 06/08/18 08:24 [facility] (Rec: 06/08/18 09:01 [facility] [id number]) Hot Pack/Cold Pack Treatment Hot Pack Location upper back, neck Patient Position Supine Treatment Duration (minutes) 15 Patient Tolerance Good Ultrasound Therapy Treatment right UT, RC Treatment Duration (minutes) 8 Patient Position Sitting Duty Cycle 100% Intensity Setting (w/cm2) 1.2 PT-OP-T Assessment and Plan Start: 03/23/18 11:44 Freq: Status: Active Protocol: Document 06/08/18 08:24 [facility] (Rec: 06/08/18 09:01 [facility] [id number]) Physical Therapy Assessment Rehab Potential Rehabilitation Potential Excellent Evaluation Complexity Number of Personal Factors/Comorbidities 0 Number of Body Systems Impaired 1-2 Clinical Presentation at Evaluation Stable Impairments Impairments Functional Activities Pain Posture ROM Soft Tissue Mobility Strength Goals Four Impairment ADL's Cartography Teacher Goal (LTG) Pt will have improved quickDASH score to no greater than 20% disability to indicate improved function ( goal progress) LTG Duration 8 weeks Three Impairment strength Cartography Teacher Goal (LTG) Pt will have 5/5 strength in rotator cuff muscles. (goal progress) LTG Duration 4 wks Two Impairment pain Penitentiary Goal (LTG) Pt will tolerate activities of daily living (such as lifting a tea kettle) with 0/10 pain in R neck and shoulder (goal progress) One Impairment ROM Cartography Teacher Goal (LTG) Pt will demonstrate full end range R shoulder flexion ROM without pain ( goal progress) LTG Duration 4 wks Progress Towards Goals Progress Comments Improved HEP compliance. Assessment Summary Assessment Improving scapular awareness. Improved understanding of HEP with recommendation for organizing exercises according to position for more efficient performance and instruction to work some exercises into her day.; Physical Therapy Plan Frequency and Duration Frequency of Treatment 1x/Week Duration of Treatment 8 weeks Plan of Care Start Date 06/01/18 Plan of Care End Date 08/01/18 Therapeutic Interventions Therapeutic Interventions Home Exercise Program Joint Mobilizations Manual Therapy Neuromuscular Re-education Self-Care/Home Management Soft Tissue Mobilization Therapeutic Exercises Next Visit Focus/Plan Next Note Type Treatment Note Next Visit Plan Progress with scapular stabilization, facilitation of normal scapulohumeral rhythm for improved shoulder function . reassess thoracic mobility and do further joint mob as indicated for shoulder girdle function. Modalities and manual therapy as indicated.
--- NOTE | 2018-06-16 17:05 | PT.OTN ---
Current Diagnoses Strain of unspecified muscle, fascia and tendon at shoulder and upper arm level, right arm, initial encounter (06/16/18) Physical Therapy Treatment Note PT-OP-A Visit Information Start: 03/23/18 11:44 Freq: Status: Active Protocol: Document 06/08/18 08:24 SAK (Rec: 06/08/18 09:01 SAK [id number]) Out-Patient Physical Therapy Visit Information Visit Information Visit Type Treatment Note Visit Start Time 08:15 Visit Stop Time 09:10 Total Visit Minutes 55 Visit Number 12 Number of LEAD GENERATOR Visits 0 Evaluation Information Evaluation Date 03/22/18 PT-OP-B Current Condition Start: 03/23/18 11:44 Freq: Status: Active Protocol: Document 03/22/18 12:50 MDD (Rec: 03/23/18 12:20 MDD [email or web address]) Current Condition History of Current Condition Onset Date 3 months ago Current Complaints R neck, shoulder and arm pain - radiates into lateral forearm and thumb History of Current Condition Incidious onset 3 months ago. Pain is intermittent and described as dull and achy. Occaisionally radiates into forearm, wrist and R thumb. 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 Denies previous neck injury or MVA history. Reports that when pain began, all of her joints would hurt intermittently, but now the shoulder pain has continued. Aggravating factors include reaching overhead, lifting laundry detergent or a tea kettle and lifting/carrying a heavy bag of groceries. She is able to sleep on that side. Massage is helpful (goes once a month). No imaging. Prior Treatments and Tests tylenol, icing intermittently. skin care technician has been helpful for neck pain, but not shoulder Prior Functional Status Baseline Function- ADL's Independent Baseline Function- Mobility Independent Baseline Function- Recreation/Hobbies Lifting great grandson ( roughly 15#). Was attending a fitness center a few times a week, walking the dog, gardening. 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, product picker items heavier than 10# without pain PT-OP-C Subjective Start: 03/23/18 11:44 Freq: Status: Active Protocol: Document 06/16/18 09:02 SAK (Rec: 06/16/18 17:04 SAK [id number]) OP-PT Subjective Patient Comments Patient Comments Still having difficulty activating correct muscles around scapula to decrease overactivation of neck muscles . PT-OP-F Manual Assessment Start: 03/23/18 11:44 Freq: Status: Active Protocol: Document 03/22/18 12:50 MDD (Rec: 03/23/18 12:20 MDD [email or web address]) Manual Assessments Soft Tissue Assessment Soft Tissue Mobility Assessment Significant tightness in B upper trapezii, R>L. PT-OP-J Posture/Palpation/Skin Start: 03/23/18 11:44 Freq: Status: Active Protocol: Document 03/22/18 12:50 MDD (Rec: 03/23/18 12:20 MDD [email or web address]) Posture Evaluation Position Sitting Evaluation View Lateral Head/C-Spine Posture Flexed C-Spine Flattened Forward Head T-Spine Posture Increased Kyphosis Thorax Posture Neutral Shoulder Posture (L) Rounded (R) Rounded (R) Elevated Shoulder Subluxation Position (L) Neutral (R) Neutral Scapula Posture (R) Protracted (R) Elevated (R) Winged Arm Posture (R) Internally Rotated Palpation Assessment Location One Palpation Location coracoid process Palpation Findings Tenderness Palpation Details R coracoid process tender to palpation PT-OP-K Range of Motion Start: 03/23/18 11:44 Freq: Status: Active Protocol: Document 03/22/18 12:50 MDD (Rec: 03/23/18 12:20 MDD [email or web address]) Cervical Spine Range of Motion Cervical Spine Passive Testing Position Supine ROM Limitations Soft Tissue Tightness Comments Passive movements wfl in all motions, slightly greater than active Active Testing Position Sitting ROM Limitations Soft Tissue Tightness Comments all movements within normal limits, R mild limitation and pain with R rotation Shoulder Goniometric Range of Motion Shoulder Measured in Degrees Left Active Shoulder ROM WFL Yes Testing Position Sitting Flexion 145 Abduction 160 Right Active Shoulder ROM WFL Yes Testing Position Sitting Flexion 142 Abduction 100 Shoulder ROM Limitations Shoulder ROM Limitations Soft Tissue Tightness Comments Functional ER with hands behind head wnl. Functional IR wnl, but causes mild stretch sensation anterior shoulder PT-OP-L Special Tests Start: 03/23/18 11:44 Freq: Status: Active Protocol: Document 03/22/18 12:50 MDD (Rec: 03/23/18 12:20 MDD [email or web address]) Special Tests Cervical Spine Special Tests Spurling's Test Test Results negative B Comments no re-creation of radiating pain into thumb/forearm Shoulder Special Tests Empty Can Test Results positive Speed's Biceps Test Results negative Biceps Load II Test Test Results negative Rebollar Francis Impingement Test Results positive R PT-OP-M Strength Start: 03/23/18 11:44 Freq: Status: Active Protocol: Document 03/22/18 12:50 MDD (Rec: 03/23/18 12:20 MDD [email or web address]) Shoulder Strength Shoulder Manual Muscle Testing Left Flexion 5 Normal Abduction (C5) 5 Normal External Rotation 4+ Good+ Internal Rotation 5 Normal Right External Rotation 4 Good Internal Rotation 5 Normal Reason Not Measured Pain Comments abduction/flexion not tested due to pain with active movement PT-OP-Q Treatments Start: 03/23/18 11:44 Freq: Status: Active Protocol: Document 06/16/18 09:02 [facility] (Rec: 06/16/18 17:04 [facility] [id number]) Therapeutic Exercises Supine Exercises serratus punch Side bilateral Reps/Minutes 20x Prone Exercises goal post Reps/Minutes 10x Comments only partial ER hor abduction Reps/Minutes 10x scapular squeeze Reps/Minutes 10x child's pose stretch Prone Exercise Name forward and lateral Reps/Minutes 1 min Sidelying Exercises scapular clocks Resistance manual resistance Reps/Minutes 4 min reach and roll Side bilateral Reps/Minutes 5x Comments manual cues and facilitation R shoulder ER Side right Resistance against gravity Reps/Minutes 10 x 2 Manual Therapy Treatment Soft Tissue Mobilization STM Body Location upper traps, levator R Mobilization Type Strumming Sustained Pressure Trigger Point Release Intensity/Depth Moderate Body Position Prone manual pectoralis stretch Body Location B shoulders Mobilization Type Sustained Pressure Intensity/Depth Superficial Body Position Supine Joint Mobilizations Thoracic spine Joint T4,5 Direction PA's Grade III Body Position Prone Reps/Duration 3 x 45 second bouts Comments also general thoracic mobilization Taping upper trap inhibition Body Location right UT Treatment Focus inhibition Type of Tape Kinesio Tape PT-OP-R Modalities Start: 03/23/18 11:44 Freq: Status: Active Protocol: Document 06/16/18 09:02 [facility] (Rec: 06/16/18 17:04 SAK [id number]) Hot Pack/Cold Pack Treatment Hot Pack Location upper back, neck Patient Position Supine Treatment Duration (minutes) 15 Patient Tolerance Good PT-OP-T Assessment and Plan Start: 03/23/18 11:44 Freq: Status: Active Protocol: Document 06/16/18 09:02 [facility] (Rec: 06/16/18 17:04 [facility] [id number]) Physical Therapy Assessment Goals Four Impairment ADL's Detention Goal (LTG) Pt will have improved quickDASH score to no greater than 20% disability to indicate improved function ( goal progress) LTG Duration 8 weeks Three Impairment strength Video Editing Intern Goal (LTG) Pt will have 5/5 strength in rotator cuff muscles. (goal progress) LTG Duration 4 wks Two Impairment pain Video Editing Intern Goal (LTG) Pt will tolerate activities of daily living (such as lifting a tea kettle) with 0/10 pain in R neck and shoulder (goal progress) One Impairment ROM Video Editing Intern Goal (LTG) Pt will demonstrate full end range R shoulder flexion ROM without pain ( goal progress) LTG Duration 4 wks Progress Towards Goals Progress Towards Goals Progressing Toward Goals Assessment Summary Assessment able to progress to prone ex with verbal and manual cues for correct muscle activation and exercise form. Physical Therapy Plan Frequency and Duration Frequency of Treatment 1x/Week Duration of Treatment 8 weeks Plan of Care Start Date 06/01/18 Plan of Care End Date 08/01/18 Therapeutic Interventions Therapeutic Interventions Home Exercise Program Joint Mobilizations Manual Therapy Neuromuscular Re-education Self-Care/Home Management Soft Tissue Mobilization Therapeutic Exercises Next Visit Focus/Plan Next Note Type Treatment Note Next Visit Plan Progress with scapular stabilization, facilitation of normal scapulohumeral rhythm for improved shoulder function . reassess thoracic mobility and do further joint mob as indicated for shoulder girdle function. Modalities and manual therapy as indicated.
--- NOTE | 2018-07-14 14:22 | PT.OTN ---
Current Diagnoses Strain of unspecified muscle, fascia and tendon at shoulder and upper arm level, right arm, initial encounter (07/14/18) Physical Therapy Treatment Note PT-OP-A Visit Information Start: 03/23/18 11:44 Freq: Status: Active Protocol: Document 07/14/18 14:08 [facility] (Rec: 07/14/18 14:21 [facility] [email or web address]) Out-Patient Physical Therapy Visit Information Visit Information Visit Type Treatment Note Visit Start Time 10:00 Visit Stop Time 10:45 Total Visit Minutes 45 Visit Number 13 Number of MAGNETO SPECIALIST Visits 0 PT-OP-B Current Condition Start: 03/23/18 11:44 Freq: Status: Active Protocol: Document 03/22/18 12:50 MDD (Rec: 03/23/18 12:20 MDD [email or web address]) Current Condition History of Current Condition Onset Date 3 months ago Current Complaints R neck, shoulder and arm pain - radiates into lateral forearm and thumb History of Current Condition Incidious onset 3 months ago. Pain is intermittent and described as dull and achy. Occaisionally radiates into forearm, wrist and R thumb. 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 Denies previous neck injury or MVA history. Reports that when pain began, all of her joints would hurt intermittently, but now the shoulder pain has continued. Aggravating factors include reaching overhead, lifting laundry detergent or a tea kettle and lifting/carrying a heavy bag of groceries. She is able to sleep on that side. Massage is helpful (goes once a month). No imaging. Prior Treatments and Tests tylenol, icing intermittently. critical care rn has been helpful for neck pain, but not shoulder Prior Functional Status Baseline Function- ADL's Independent Baseline Function- Mobility Independent Baseline Function- Recreation/Hobbies Lifting great grandson ( roughly 15#). Was attending a fitness center a few times a week, walking the dog, gardening. 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 She is doing better overall and notes decreased radicular symptoms. PT-OP-F Manual Assessment Start: 03/23/18 11:44 Freq: Status: Active Protocol: Document 03/22/18 12:50 MDD (Rec: 03/23/18 12:20 MDD [email or web address]) Manual Assessments Soft Tissue Assessment Soft Tissue Mobility Assessment Significant tightness in B upper trapezii, R>L. PT-OP-J Posture/Palpation/Skin Start: 03/23/18 11:44 Freq: Status: Active Protocol: Document 03/22/18 12:50 MDD (Rec: 03/23/18 12:20 MDD [email or web address]) Posture Evaluation Position Sitting Evaluation View Lateral Head/C-Spine Posture Flexed C-Spine Flattened Forward Head T-Spine Posture Increased Kyphosis Thorax Posture Neutral Shoulder Posture (L) Rounded (R) Rounded (R) Elevated Shoulder Subluxation Position (L) Neutral (R) Neutral Scapula Posture (R) Protracted (R) Elevated (R) Winged Arm Posture (R) Internally Rotated Palpation Assessment Location One Palpation Location coracoid process Palpation Findings Tenderness Palpation Details R coracoid process tender to palpation PT-OP-K Range of Motion Start: 03/23/18 11:44 Freq: Status: Active Protocol: Document 03/22/18 12:50 MDD (Rec: 03/23/18 12:20 MDD [email or web address]) Cervical Spine Range of Motion Cervical Spine Passive Testing Position Supine ROM Limitations Soft Tissue Tightness Comments Passive movements wfl in all motions, slightly greater than active Active Testing Position Sitting ROM Limitations Soft Tissue Tightness Comments all movements within normal limits, R mild limitation and pain with R rotation Shoulder Goniometric Range of Motion Shoulder Measured in Degrees Left Active Shoulder ROM WFL Yes Testing Position Sitting Flexion 145 Abduction 160 Right Active Shoulder ROM WFL Yes Testing Position Sitting Flexion 142 Abduction 100 Shoulder ROM Limitations Shoulder ROM Limitations Soft Tissue Tightness Comments Functional ER with hands behind head wnl. Functional IR wnl, but causes mild stretch sensation anterior shoulder PT-OP-L Special Tests Start: 03/23/18 11:44 Freq: Status: Active Protocol: Document 03/22/18 12:50 MDD (Rec: 03/23/18 12:20 MDD [email or web address]) Special Tests Cervical Spine Special Tests Spurling's Test Test Results negative B Comments no re-creation of radiating pain into thumb/forearm Shoulder Special Tests Empty Can Test Results positive Speed's Biceps Test Results negative Biceps Load II Test Test Results negative Rebollar Francis Impingement Test Results positive R PT-OP-M Strength Start: 03/23/18 11:44 Freq: Status: Active Protocol: Document 03/22/18 12:50 MDD (Rec: 03/23/18 12:20 MDD [email or web address]) Shoulder Strength Shoulder Manual Muscle Testing Left Flexion 5 Normal Abduction (C5) 5 Normal External Rotation 4+ Good+ Internal Rotation 5 Normal Right External Rotation 4 Good Internal Rotation 5 Normal Reason Not Measured Pain Comments abduction/flexion not tested due to pain with active movement PT-OP-Q Treatments Start: 03/23/18 11:44 Freq: Status: Active Protocol: Document 07/14/18 14:08 [facility] (Rec: 07/14/18 14:21 [facility] [email or web address]) Therapeutic Exercises Supine Exercises serratus punch Side bilateral Reps/Minutes 20x Sidelying Exercises 1 Sidelying Exercise Name sidelying ER with 1# wt Reps/Minutes 3 x 10 R shoulder ER Side right Resistance against gravity Reps/Minutes 10 x 2 Standing Exercises shoulder ER Resistance L1 TB Reps/Minutes 10x 1 resisted rows Side bilateral Resistance L2 t-band Reps/Minutes 2 x 15 Comments emphasis on keeping upper traps relaxed throughout Manual Therapy Treatment Soft Tissue Mobilization manual pectoralis stretch Body Location B shoulders Mobilization Type Sustained Pressure Intensity/Depth Superficial Body Position Supine Joint Mobilizations 1 Joint scapula mobilizations in sidelying Comments working on scapula upward rotation Thoracic spine Joint T4,5 Direction PA's Grade III Body Position Prone Reps/Duration 3 x 45 second bouts Comments also general thoracic mobilization PT-OP-R Modalities Start: 03/23/18 11:44 Freq: Status: Active Protocol: Document 06/16/18 09:02 SAK (Rec: 06/16/18 17:04 SAK [id number]) Hot Pack/Cold Pack Treatment Hot Pack Location upper back, neck Patient Position Supine Treatment Duration (minutes) 15 Patient Tolerance Good PT-OP-T Assessment and Plan Start: 03/23/18 11:44 Freq: Status: Active Protocol: Document 07/14/18 14:08 [facility] (Rec: 07/14/18 14:21 [facility] [email or web address]) Physical Therapy Assessment Assessment Summary Assessment good tolerance today for exercises, needs continued work on releasing the pectoralis musculature Physical Therapy Plan Frequency and Duration Frequency of Treatment 1x/Week Duration of Treatment 8 weeks Plan of Care Start Date 06/01/18 Plan of Care End Date 08/01/18 Therapeutic Interventions Therapeutic Interventions Home Exercise Program Joint Mobilizations Manual Therapy Neuromuscular Re-education Self-Care/Home Management Soft Tissue Mobilization Therapeutic Exercises Next Visit Focus/Plan Next Note Type Treatment Note Next Visit Plan Progress with stabilization exercises and postural modification
--- NOTE | 2018-07-21 11:55 | PT.OTN ---
Current Diagnoses Strain of unspecified muscle, fascia and tendon at shoulder and upper arm level, right arm, initial encounter (07/21/18) Physical Therapy Treatment Note PT-OP-A Visit Information Start: 03/23/18 11:44 Freq: Status: Active Protocol: Document 07/21/18 11:50 [facility] (Rec: 07/21/18 11:55 [facility] [email or web address]) Out-Patient Physical Therapy Visit Information Visit Information Visit Type Treatment Note Visit Start Time 10:00 Visit Stop Time 10:45 Total Visit Minutes 45 Visit Number 14 Number of MACHINE BUILDER Visits 0 PT-OP-B Current Condition Start: 03/23/18 11:44 Freq: Status: Active Protocol: Document 03/22/18 12:50 MDD (Rec: 03/23/18 12:20 MDD [email or web address]) Current Condition History of Current Condition Onset Date 3 months ago Current Complaints R neck, shoulder and arm pain - radiates into lateral forearm and thumb History of Current Condition Incidious onset 3 months ago. Pain is intermittent and described as dull and achy. Occaisionally radiates into forearm, wrist and R thumb. 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 Denies previous neck injury or MVA history. Reports that when pain began, all of her joints would hurt intermittently, but now the shoulder pain has continued. Aggravating factors include reaching overhead, lifting laundry detergent or a tea kettle and lifting/carrying a heavy bag of groceries. She is able to sleep on that side. Massage is helpful (goes once a month). No imaging. Prior Treatments and Tests tylenol, icing intermittently. transitions rn care coordinator has been helpful for neck pain, but not shoulder Prior Functional Status Baseline Function- ADL's Independent Baseline Function- Mobility Independent Baseline Function- Recreation/Hobbies Lifting great grandson ( roughly 15#). Was attending a fitness center a few times a week, walking the dog, gardening. 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 She has been taking care of her 6 month old great grandson and carrying him has bothered her right shoulder some PT-OP-F Manual Assessment Start: 03/23/18 11:44 Freq: Status: Active Protocol: Document 03/22/18 12:50 MDD (Rec: 03/23/18 12:20 MDD [email or web address]) Manual Assessments Soft Tissue Assessment Soft Tissue Mobility Assessment Significant tightness in B upper trapezii, R>L. PT-OP-J Posture/Palpation/Skin Start: 03/23/18 11:44 Freq: Status: Active Protocol: Document 03/22/18 12:50 MDD (Rec: 03/23/18 12:20 MDD [email or web address]) Posture Evaluation Position Sitting Evaluation View Lateral Head/C-Spine Posture Flexed C-Spine Flattened Forward Head T-Spine Posture Increased Kyphosis Thorax Posture Neutral Shoulder Posture (L) Rounded (R) Rounded (R) Elevated Shoulder Subluxation Position (L) Neutral (R) Neutral Scapula Posture (R) Protracted (R) Elevated (R) Winged Arm Posture (R) Internally Rotated Palpation Assessment Location One Palpation Location coracoid process Palpation Findings Tenderness Palpation Details R coracoid process tender to palpation PT-OP-K Range of Motion Start: 03/23/18 11:44 Freq: Status: Active Protocol: Document 03/22/18 12:50 MDD (Rec: 03/23/18 12:20 MDD [email or web address]) Cervical Spine Range of Motion Cervical Spine Passive Testing Position Supine ROM Limitations Soft Tissue Tightness Comments Passive movements wfl in all motions, slightly greater than active Active Testing Position Sitting ROM Limitations Soft Tissue Tightness Comments all movements within normal limits, R mild limitation and pain with R rotation Shoulder Goniometric Range of Motion Shoulder Measured in Degrees Left Active Shoulder ROM WFL Yes Testing Position Sitting Flexion 145 Abduction 160 Right Active Shoulder ROM WFL Yes Testing Position Sitting Flexion 142 Abduction 100 Shoulder ROM Limitations Shoulder ROM Limitations Soft Tissue Tightness Comments Functional ER with hands behind head wnl. Functional IR wnl, but causes mild stretch sensation anterior shoulder PT-OP-L Special Tests Start: 03/23/18 11:44 Freq: Status: Active Protocol: Document 03/22/18 12:50 MDD (Rec: 03/23/18 12:20 MDD [email or web address]) Special Tests Cervical Spine Special Tests Spurling's Test Test Results negative B Comments no re-creation of radiating pain into thumb/forearm Shoulder Special Tests Empty Can Test Results positive Speed's Biceps Test Results negative Biceps Load II Test Test Results negative Rebollar Francis Impingement Test Results positive R PT-OP-M Strength Start: 03/23/18 11:44 Freq: Status: Active Protocol: Document 03/22/18 12:50 MDD (Rec: 03/23/18 12:20 MDD [email or web address]) Shoulder Strength Shoulder Manual Muscle Testing Left Flexion 5 Normal Abduction (C5) 5 Normal External Rotation 4+ Good+ Internal Rotation 5 Normal Right External Rotation 4 Good Internal Rotation 5 Normal Reason Not Measured Pain Comments abduction/flexion not tested due to pain with active movement PT-OP-Q Treatments Start: 03/23/18 11:44 Freq: Status: Active Protocol: Document 07/21/18 11:50 [facility] (Rec: 07/21/18 11:55 [facility] [email or web address]) Cardio Equipment Recumbent Elliptical ([email or web address]) Duration (Minutes) 5 Resistance lev 3 Therapeutic Exercises Supine Exercises serratus punch Side bilateral Reps/Minutes 20x 1 Supine Exercise Name shoulder flex Equipment Used 1/2 roll Reps/Minutes 10x Comments with manual lat release pectoralis stretch on foam roll Side bilateral Equipment Used 1/2 foam roll Reps/Minutes 2 minutes Comments pec breana, pec min Prone Exercises goal post Reps/Minutes 10x Comments only partial ER hor abduction Reps/Minutes 10x scapular squeeze Reps/Minutes 10x child's pose stretch Prone Exercise Name forward and lateral Reps/Minutes 1 min Sidelying Exercises 1 Sidelying Exercise Name sidelying ER with 1# wt Reps/Minutes 3 x 10 scapular clocks Resistance manual resistance Reps/Minutes 4 min reach and roll Side bilateral Reps/Minutes 5x Comments manual cues and facilitation R shoulder ER Side right Resistance against gravity Reps/Minutes 10 x 2 Sitting Exercises 1 Sitting Exercise Name scapular clocks Resistance manual Reps/Minutes 5 min 2 Sitting Exercise Name seated sidebends Reps/Minutes 10 cervical stretches Sitting Exercise Name levator scapulae and UT stretches Side right Reps/Minutes 2 x 30 seconds each isometric shoulder ER Side right Resistance self with opposite hand Reps/Minutes 10 x 10 s holds Standing Exercises 4 Standing Exercise Name standing rows and shoulder extension Reps/Minutes 1x10 shoulder ER Resistance L1 TB Reps/Minutes 10x 1 Resisted scaption Side bilateral Resistance decreased to no resistance Reps/Minutes 15 Comments focus on scapular stabilization resisted rows Side bilateral Resistance L2 t-band Reps/Minutes 2 x 15 Comments emphasis on keeping upper traps relaxed throughout Resisted shoulder IR Side right Resistance Level 2 t-band Equipment Used mirror Reps/Minutes 2 x 15 reps shoulder pulleys AAROM flexion Standing Exercise Name flexion Side right Resistance none Equipment Used shoulder pulleys Reps/Minutes 5 minutes Comments facing away from wall 2 Standing Exercise Name scapular retraction Side bilateral Equipment Used mirror Reps/Minutes 10 Comments emphasis on avoiding upper trap activation 1 Standing Exercise Name wall walking Side right Reps/Minutes 10 Other Exercises cat/cow Reps/Minutes 10x Manual Therapy Treatment Soft Tissue Mobilization cervical stretches Body Location cervical Mobilization Type Other Body Position Supine Comments manual stretches to R upper traps, levator scapulae 2 x30 s each pectoralis minor Mobilization Type Sustained Pressure Intensity/Depth Moderate Body Position Supine manual pectoralis stretch Body Location B shoulders Mobilization Type Sustained Pressure Intensity/Depth Superficial Body Position Supine Joint Mobilizations Thoracic spine Joint T4,5 Direction PA's Grade III Body Position Prone Reps/Duration 3 x 45 second bouts Comments also general thoracic mobilization PT-OP-R Modalities Start: 03/23/18 11:44 Freq: Status: Active Protocol: Document 06/16/18 09:02 SAK (Rec: 06/16/18 17:04 SAK [email or web address]) Hot Pack/Cold Pack Treatment Hot Pack Location upper back, neck Patient Position Supine Treatment Duration (minutes) 15 Patient Tolerance Good PT-OP-T Assessment and Plan Start: 03/23/18 11:44 Freq: Status: Active Protocol: Document 07/21/18 11:50 [facility] (Rec: 07/21/18 11:55 AMH [email or web address]) Physical Therapy Assessment Assessment Summary Assessment tolerating 1/2 foam roll well and trying to do her foam roll at home, Right shoulder is still more anteriorly rotated than left Physical Therapy Plan Frequency and Duration Frequency of Treatment 1x/Week Duration of Treatment 8 weeks Plan of Care Start Date 06/01/18 Plan of Care End Date 08/01/18 Therapeutic Interventions Therapeutic Interventions Home Exercise Program Joint Mobilizations Manual Therapy Neuromuscular Re-education Self-Care/Home Management Soft Tissue Mobilization Therapeutic Exercises Next Visit Focus/Plan Next Note Type Treatment Note Next Visit Plan Progress with stabilization exercises and postural modification
--- NOTE | 2018-07-28 13:54 | PT.OTN ---
Current Diagnoses Strain of unspecified muscle, fascia and tendon at shoulder and upper arm level, right arm, initial encounter (07/28/18) Physical Therapy Treatment Note PT-OP-A Visit Information Start: 03/23/18 11:44 Freq: Status: Active Protocol: Document 07/28/18 13:44 AMH (Rec: 07/28/18 13:51 AMH [email or web address]) Out-Patient Physical Therapy Visit Information Visit Information Visit Type Progress Note Visit Start Time 09:00 Visit Stop Time 09:45 Total Visit Minutes 45 Visit Number 15 Number of DEPUTY SHERIFF BAILIFF Visits 0 Evaluation Information Evaluation Date 03/22/18 PT-OP-B Current Condition Start: 03/23/18 11:44 Freq: Status: Active Protocol: Document 03/22/18 12:50 MDD (Rec: 03/23/18 12:20 MDD [email or web address]) Current Condition History of Current Condition Onset Date 3 months ago Current Complaints R neck, shoulder and arm pain - radiates into lateral forearm and thumb History of Current Condition Incidious onset 3 months ago. Pain is intermittent and described as dull and achy. Occaisionally radiates into forearm, wrist and R thumb. 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 Denies previous neck injury or MVA history. Reports that when pain began, all of her joints would hurt intermittently, but now the shoulder pain has continued. Aggravating factors include reaching overhead, lifting laundry detergent or a tea kettle and lifting/carrying a heavy bag of groceries. She is able to sleep on that side. Massage is helpful (goes once a month). No imaging. Prior Treatments and Tests tylenol, icing intermittently. healthcare financial analyst has been helpful for neck pain, but not shoulder Prior Functional Status Baseline Function- ADL's Independent Baseline Function- Mobility Independent Baseline Function- Recreation/Hobbies Lifting great grandson ( roughly 15#). Was attending a fitness center a few times a week, walking the dog, gardening. 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, lease picker items heavier than 10# without pain PT-OP-C Subjective Start: 03/23/18 11:44 Freq: Status: Active Protocol: Document 07/28/18 13:44 AMH (Rec: 07/28/18 13:51 AMH [email or web address]) OP-PT Subjective Patient Comments Patient Comments Doing better with decreased c/ o radicular symptoms down the right arm. Carrying her grandson does aggravate her neck though PT-OP-F Manual Assessment Start: 03/23/18 11:44 Freq: Status: Active Protocol: Document 03/22/18 12:50 MDD (Rec: 03/23/18 12:20 MDD [email or web address]) Manual Assessments Soft Tissue Assessment Soft Tissue Mobility Assessment Significant tightness in B upper trapezii, R>L. PT-OP-J Posture/Palpation/Skin Start: 03/23/18 11:44 Freq: Status: Active Protocol: Document 03/22/18 12:50 MDD (Rec: 03/23/18 12:20 MDD [email or web address]) Posture Evaluation Position Sitting Evaluation View Lateral Head/C-Spine Posture Flexed C-Spine Flattened Forward Head T-Spine Posture Increased Kyphosis Thorax Posture Neutral Shoulder Posture (L) Rounded (R) Rounded (R) Elevated Shoulder Subluxation Position (L) Neutral (R) Neutral Scapula Posture (R) Protracted (R) Elevated (R) Winged Arm Posture (R) Internally Rotated Palpation Assessment Location One Palpation Location coracoid process Palpation Findings Tenderness Palpation Details R coracoid process tender to palpation PT-OP-K Range of Motion Start: 03/23/18 11:44 Freq: Status: Active Protocol: Document 03/22/18 12:50 MDD (Rec: 03/23/18 12:20 MDD [email or web address]) Cervical Spine Range of Motion Cervical Spine Passive Testing Position Supine ROM Limitations Soft Tissue Tightness Comments Passive movements wfl in all motions, slightly greater than active Active Testing Position Sitting ROM Limitations Soft Tissue Tightness Comments all movements within normal limits, R mild limitation and pain with R rotation Shoulder Goniometric Range of Motion Shoulder Measured in Degrees Left Active Shoulder ROM WFL Yes Testing Position Sitting Flexion 145 Abduction 160 Right Active Shoulder ROM WFL Yes Testing Position Sitting Flexion 142 Abduction 100 Shoulder ROM Limitations Shoulder ROM Limitations Soft Tissue Tightness Comments Functional ER with hands behind head wnl. Functional IR wnl, but causes mild stretch sensation anterior shoulder PT-OP-L Special Tests Start: 03/23/18 11:44 Freq: Status: Active Protocol: Document 03/22/18 12:50 MDD (Rec: 03/23/18 12:20 MDD [email or web address]) Special Tests Cervical Spine Special Tests Spurling's Test Test Results negative B Comments no re-creation of radiating pain into thumb/forearm Shoulder Special Tests Empty Can Test Results positive Speed's Biceps Test Results negative Biceps Load II Test Test Results negative Rebollar Francis Impingement Test Results positive R PT-OP-M Strength Start: 03/23/18 11:44 Freq: Status: Active Protocol: Document 03/22/18 12:50 MDD (Rec: 03/23/18 12:20 MDD [email or web address]) Shoulder Strength Shoulder Manual Muscle Testing Left Flexion 5 Normal Abduction (C5) 5 Normal External Rotation 4+ Good+ Internal Rotation 5 Normal Right External Rotation 4 Good Internal Rotation 5 Normal Reason Not Measured Pain Comments abduction/flexion not tested due to pain with active movement PT-OP-Q Treatments Start: 03/23/18 11:44 Freq: Status: Active Protocol: Document 07/28/18 13:44 AMH (Rec: 07/28/18 13:51 AMH [email or web address]) Therapeutic Exercises Supine Exercises serratus punch Side bilateral Reps/Minutes 20x 1 Supine Exercise Name shoulder flex Equipment Used 1/2 roll Reps/Minutes 10x Comments with manual lat release pectoralis stretch on foam roll Side bilateral Equipment Used 1/2 foam roll Reps/Minutes 2 minutes Comments pec breana, pec min Prone Exercises goal post Reps/Minutes 10x Comments only partial ER hor abduction Reps/Minutes 10x scapular squeeze Reps/Minutes 10x child's pose stretch Prone Exercise Name forward and lateral Reps/Minutes 1 min Sidelying Exercises 1 Sidelying Exercise Name sidelying ER with 1# wt Reps/Minutes 3 x 10 scapular clocks Resistance manual resistance Reps/Minutes 4 min reach and roll Side bilateral Reps/Minutes 5x Comments manual cues and facilitation R shoulder ER Side right Resistance against gravity Reps/Minutes 10 x 2 Sitting Exercises 1 Sitting Exercise Name scapular clocks Resistance manual Reps/Minutes 5 min scapular clocks Resistance manual 2 Sitting Exercise Name seated sidebends Reps/Minutes 10 cervical stretches Sitting Exercise Name levator scapulae and UT stretches Side right Reps/Minutes 2 x 30 seconds each Standing Exercises 4 Standing Exercise Name standing rows and shoulder extension Reps/Minutes 1x10 shoulder ER Resistance L1 TB Reps/Minutes 10x 1 shoulder pulleys AAROM flexion Standing Exercise Name flexion Side right Resistance none Equipment Used shoulder pulleys Reps/Minutes 5 minutes Comments facing away from wall 3 Standing Exercise Name corner pectoralis stretch Side bilateral Reps/Minutes 2 x 30 seconds 2 Standing Exercise Name scapular retraction Side bilateral Equipment Used mirror Reps/Minutes 10 Comments emphasis on avoiding upper trap activation Other Exercises cat/cow Reps/Minutes 10x Manual Therapy Treatment Soft Tissue Mobilization cervical stretches Body Location cervical Mobilization Type Other Body Position Supine Comments manual stretches to R upper traps, levator scapulae 2 x30 s each Joint Mobilizations 1 Joint scapula mobilizations in sidelying Comments working on scapula upward rotation Thoracic spine Joint T4,5 Direction PA's Grade III Body Position Prone Reps/Duration 3 x 45 second bouts Comments also general thoracic mobilization PT-OP-R Modalities Start: 03/23/18 11:44 Freq: Status: Active Protocol: Document 06/16/18 09:02 SAK (Rec: 06/16/18 17:04 SAK [id number]) Hot Pack/Cold Pack Treatment Hot Pack Location upper back, neck Patient Position Supine Treatment Duration (minutes) 15 Patient Tolerance Good PT-OP-T Assessment and Plan Start: 03/23/18 11:44 Freq: Status: Active Protocol: Document 07/28/18 13:44 AMH (Rec: 07/28/18 13:51 AMH [email or web address]) Physical Therapy Assessment Assessment Summary Assessment Senia is demonstrating improving scapula mobility and today protraction/retraction was easier to perform. Her shoulder AAROM into flexion now is WFL. Radicular symptoms have decreased overall. She would benefit from continuing with her last 2 scheduled visits to progress her home program and then she will be discharged at the end of this month Physical Therapy Plan Frequency and Duration Frequency of Treatment 1x/Week Duration of Treatment 8 weeks Plan of Care Start Date 07/28/18 Plan of Care End Date 08/11/18 Therapeutic Interventions Therapeutic Interventions Home Exercise Program Joint Mobilizations Manual Therapy Neuromuscular Re-education Self-Care/Home Management Soft Tissue Mobilization Therapeutic Exercises Next Visit Focus/Plan Next Note Type Treatment Note Next Visit Plan continue to focus on stabilization of the scapula and improved flexibility of the neck and pec minor
--- NOTE | 2018-09-29 10:31 | PT.OPDS ---
Current Diagnoses Strain of unspecified muscle, fascia and tendon at shoulder and upper arm level, right arm, initial encounter (07/28/18) Provider Visit Care Team Role Provider Type Che Lopez DO Attending Provider Physician Primary Care Provider Specialty: [facility] Address: [address] [place] [address], [id number] Email: [email or web address] Visit Number Visit Number 15 Discharge Summary PT-OP-B Current Condition Start: 03/23/18 11:44 Freq: Status: Active Protocol: Document 03/22/18 12:50 MDD (Rec: 03/23/18 12:20 MDD [email or web address]) Current Condition History of Current Condition Onset Date 3 months ago Current Complaints R neck, shoulder and arm pain - radiates into lateral forearm and thumb History of Current Condition Incidious onset 3 months ago. Pain is intermittent and described as dull and achy. Occaisionally radiates into forearm, wrist and R thumb. 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 Denies previous neck injury or MVA history. Reports that when pain began, all of her joints would hurt intermittently, but now the shoulder pain has continued. Aggravating factors include reaching overhead, lifting laundry detergent or a tea kettle and lifting/carrying a heavy bag of groceries. She is able to sleep on that side. Massage is helpful (goes once a month). No imaging. Prior Treatments and Tests tylenol, icing intermittently. animal care attendant has been helpful for neck pain, but not shoulder Prior Functional Status Baseline Function- ADL's Independent Baseline Function- Mobility Independent Baseline Function- Recreation/Hobbies Lifting great grandson ( roughly 15#). Was attending a fitness center a few times a week, walking the dog, gardening. 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, roller picker items heavier than 10# without pain PT-OP-C Subjective Start: 03/23/18 11:44 Freq: Status: Active Protocol: Document 07/28/18 13:44 AMH (Rec: 07/28/18 13:51 AMH [email or web address]) OP-PT Subjective Patient Comments Patient Comments Doing better with decreased c/ o radicular symptoms down the right arm. Carrying her grandson does aggravate her neck though PT-OP-F Manual Assessment Start: 03/23/18 11:44 Freq: Status: Active Protocol: Document 03/22/18 12:50 MDD (Rec: 03/23/18 12:20 MDD [email or web address]) Manual Assessments Soft Tissue Assessment Soft Tissue Mobility Assessment Significant tightness in B upper trapezii, R>L. PT-OP-J Posture/Palpation/Skin Start: 03/23/18 11:44 Freq: Status: Active Protocol: Document 03/22/18 12:50 MDD (Rec: 03/23/18 12:20 MDD [email or web address]) Posture Evaluation Position Sitting Evaluation View Lateral Head/C-Spine Posture Flexed C-Spine Flattened Forward Head T-Spine Posture Increased Kyphosis Thorax Posture Neutral Shoulder Posture (L) Rounded (R) Rounded (R) Elevated Shoulder Subluxation Position (L) Neutral (R) Neutral Scapula Posture (R) Protracted (R) Elevated (R) Winged Arm Posture (R) Internally Rotated Palpation Assessment Location One Palpation Location coracoid process Palpation Findings Tenderness Palpation Details R coracoid process tender to palpation PT-OP-K Range of Motion Start: 03/23/18 11:44 Freq: Status: Active Protocol: Document 03/22/18 12:50 MDD (Rec: 03/23/18 12:20 MDD [email or web address]) Cervical Spine Range of Motion Cervical Spine Passive Testing Position Supine ROM Limitations Soft Tissue Tightness Comments Passive movements wfl in all motions, slightly greater than active Active Testing Position Sitting ROM Limitations Soft Tissue Tightness Comments all movements within normal limits, R mild limitation and pain with R rotation Shoulder Goniometric Range of Motion Shoulder Measured in Degrees Left Active Shoulder ROM WFL Yes Testing Position Sitting Flexion 145 Abduction 160 Right Active Shoulder ROM WFL Yes Testing Position Sitting Flexion 142 Abduction 100 Shoulder ROM Limitations Shoulder ROM Limitations Soft Tissue Tightness Comments Functional ER with hands behind head wnl. Functional IR wnl, but causes mild stretch sensation anterior shoulder PT-OP-L Special Tests Start: 03/23/18 11:44 Freq: Status: Active Protocol: Document 03/22/18 12:50 MDD (Rec: 03/23/18 12:20 MDD [email or web address]) Special Tests Cervical Spine Special Tests Spurling's Test Test Results negative B Comments no re-creation of radiating pain into thumb/forearm Shoulder Special Tests Empty Can Test Results positive Speed's Biceps Test Results negative Biceps Load II Test Test Results negative Rebollar Francis Impingement Test Results positive R PT-OP-M Strength Start: 03/23/18 11:44 Freq: Status: Active Protocol: Document 03/22/18 12:50 MDD (Rec: 03/23/18 12:20 MDD [email or web address]) Shoulder Strength Shoulder Manual Muscle Testing Left Flexion 5 Normal Abduction (C5) 5 Normal External Rotation 4+ Good+ Internal Rotation 5 Normal Right External Rotation 4 Good Internal Rotation 5 Normal Reason Not Measured Pain Comments abduction/flexion not tested due to pain with active movement PT-OP-T Assessment and Plan Start: 03/23/18 11:44 Freq: Status: Active Protocol: Document 09/29/18 10:27 AMH (Rec: 09/29/18 10:31 AMH [email or web address]) Physical Therapy Assessment Progress Towards Goals Progress Towards Goals Goals Met Assessment Summary Assessment Senia is demonstrating improving scapula mobility and at the time of her last visit protraction/retraction were easier to perform. Her shoulder AAROM into flexion now is WFL. Radicular symptoms have decreased overall. She will be discharged at this time to a home exercise program Physical Therapy Plan Discharge Physical Therapy Discharge Reasons Goals Met
== END 2018-09-29 12:38 ==
LOC: PHYS 10:00
PROVIDERS: PCP Family Medicine; Visit Provider Family Medicine
DX: S46.911A Strain of unspecified muscle, fascia and tendon at shoulder and upper arm level, right arm, initial encounter (principal)
CPT/HCPCS: 97010; 97035; 97110; 97140; 97161

== ENCOUNTER → 2018-07-31 09:51 | Outpatient (CLI) | payer MEDICARE, BC, SELFPAY ==
[2018-07-31 11:11] LABS: Add Manual Diff / Slide Review NO; Basophils Percent Auto 1.3 % (0-2); Eosinophils Percent Auto 2.8 % (2-4); Hematocrit 42.6 % (36-46); Hemoglobin 14.7 g/dL (12.0-16.0); Lymphocytes Percent Auto 33.4 % (25-40); Mean Corpuscular HGB Conc 34.6 % (30-36); Mean Corpuscular Hemoglobin 30.9 PG (26-34); Mean Corpuscular Volume 89.2 fL (80-100); Neutrophils Absolute Auto 2300 /uL (1500-7000); Neutrophils Percent Auto 52.5 % (50-75); Platelet Count 210 X10^3/uL (150-400); Red Blood Cell Count 4.78 X10^6/uL (4.0-5.2); Red Cell Distribution Width 13.4 % (11.6-14.8); White Blood Cell Count 4.4 X10^3/uL (4.5-11.0)
[2018-07-31 12:13] LABS: Thyroid Stimulating Hormone 1.59 uIU/mL (0.47-4.68)
== END ==
PROVIDERS: PCP Family Medicine; Visit Provider Family Medicine
DX: E78.5 Hyperlipidemia, unspecified (principal)
CPT/HCPCS: 36415; 84443; 85025

== ENCOUNTER → 2018-12-27 09:14 | Outpatient (CLI) | payer MEDICARE, BC, SELFPAY ==
--- NOTE | 2018-12-27 09:17 | DI.RAD.S_ITS ---
PROCEDURE: FL BARIUM SWALLOW W SPEECH INDICATIONS: choking, difficulty swallowing TECHNIQUE: Examination was conducted in conjunction with speech pathology per standard protocol. In the lateral projection, filming was performed of the patient swallowing. AP projection filming may also be performed with patient swallowing. COMPARISON: None. FINDINGS: Function: The oral preparatory phase appears normal, with proper containment. The subsequent oral propulsive phase, pharyngeal phase, and esophageal phase of swallowing also appear normal with all proffered substances. No laryngotracheal penetration or aspiration. No pathologic vallecular pooling. Morphology: No cricopharyngeal bar is identified. No cervical esophageal webs. There is a very small ovoid posterior projecting presumed Zenker's diverticulum seen anterior to the C7 axial level, measuring only approximately 2 x 3 mm in diameter. No strictures. IMPRESSION: No sign of penetration or aspiration during the swallowing evaluation. Incidental note made of a small 2 x 3 mm diameter posterior projecting Zenker's diverticulum having no mass effect, located ventral to the anterior C7 vertebral body. Dictated by: Mike Thompson M.D. on 12/27/2018 at 10:29 Approved by: Mike Thompson M.D. on 12/27/2018 at 10:31
--- NOTE | 2018-12-27 11:35 | ST.SWALLOW ---
Care Team Visit Care Team Role Provider Type Che Lopez DO Attending Provider Physician Primary Care Provider Specialty: Family Practice Address: [address] [place] [address], [id number] Email: [email or web address] Modified Barium Swallow Study WOOD BOX MAKER Modified Barium Swallow Study Start: 12/27/18 11:10 Freq: Status: Active Protocol: Document 12/27/18 11:10 MRM (Rec: 12/27/18 11:35 MRM [email or web address]) Modified Barium Swallow Study Total Time Visit Start Time 09:25 Visit Stop Time 10:00 Total Visit Minutes 35 Referral Referring Physician Vidhya Lopez DO Reason for Referral Dysphagia Setting Setting Outpatient Care Patient Information Identification Type Name Patient History Patient is a 73 year old female referred for an outpatient modified barium swallow study by Dr Lopez secondary to GERD and increased difficulty swallowing. She reported to WOOD BOX MAKER that her primary concern is coughing on her own saliva. She explained that she experiences increased salivary buildup in her mouth, which she suspects drips down into her pharynx, causing her to cough. No recent pneumonia, no weight loss, no decreased appetite. No recent neurological changes. She did report that she experiences GERD symptoms and takes Tums when needed, to address these symptoms. No other medication taken for this. She has a family history of difficulty swallowing (mother and brother ). She experienced an onset of difficulty managing secretions with increasing GERD symptoms a year ago. No prior difficulty swallowing reported. Subjective Observations Patient arrived on time for the MBSS with no family present. Able to provide thorough medical history for WOOD BOX MAKER. Patient Positioning Position View Lateral Imaging Lateral View Textures Administered Trials Presented Thin Liquid via Cup Yaak Liquid via Cup Regular Textures Barium Tablet Oral Phase Source: MBSIMP (TM) (C) Bolus Specific Scoring Grid Lip Closure No Impairment (WNL) Tongue Control During Bolus Hold WFL Bolus Prep/Mastication WFL Bolus Transport/Lingual Motion WFL A/P Lingual Propulsion Delay No Oral Residue Mild Impairment Residue Clearing Mild Impairment Nasal Regurgitation No Additional Oral Phase Observations Tongue base residue observed with single and consecutive sips of thin and nectar thick liquid. Able to reduce with dry swallows. Pharyngeal Phase Source: MBSIMP (TM) (C) Bolus Specific Scoring Grid Delayed Initiation of Pharyngeal Swallow No Soft Palate Elevation WFL Tongue Base Strength/Range of Motion Mild Impairment Residue Along the Tongue Base Yes Clearance of Residue Along Tongue Base WFL Laryngeal Elevation Minimal Impairment Anterior Hyoid Movement Minimal Impairment Epiglottic Range of Motion Minimal Impairment Vallecular Residue Yes: Mild amount observed with thin and nectar thick liquids Clearance of Vallecular Residue Minimal Impairment Laryngeal Vestibular Closure WFL Pharyngeal Stripping Wave WFL Pharyngeal Contraction WFL Posterior Pharyngeal Wall Residue No Clearance of Posterior Pharyngeal Wall WFL Residue Upper Esophageal Sphincter Opening WFL Residue in the Pyriform Sinuses No Clearance of Residue in the Pyriform No Impairment (WNL) Sinuses Esophageal Clearance Upright Position WFL Pharyngoesophageal Backflow Observed No Additional Pharyngeal Phase Observations Observed small 2x3mm diameter posterior projecting Zenker's diverticulum having no mass effect, located ventral to the anterior C7 vertebral body, per Radiology report. A/P View Esophageal Observations Esophageal Function No significant esophageal findigns to report Clinical Impressions Dysphagia Type Mild pharyngeal dysphagia Findings Mild pharyngeal dyspahgia secondary to reduced tongue base strength, reduced epiglottic inversion, reduced hyolaryngeal elevation/ excursion. Minor vallecular pooling observed after trials of thin liquid and nectar thick liquid, improving with additional dry swallows. Observed, identified by Radiologist, presumed Zenker's diverticulum at the level of C7, 2x3mm in diameter, which resulted in mild pharyngeal residue after trials of thin and nectar thick liquid. Unable to clear with additional spontaneous swallows. Trials completed: Thin liquid via cup in single and consecutive sips, nectar thick liquid via cup single sips, regular sawyer cracker, barium tablet in water. No penetration, no aspiration observed throughout study. Able to maintain laryngeal closure for safe swallowing througout each trial. Observed reduced tongue base strength, allowing posterior lingual residue to remain after trials of thin liquid and nectar thick liquids. This reduced tongue base strength also reduced epiglottic inversion, which allowed mild vallecular residue with trials of liquids to collect. Reduced hyolaryngeal elevation and excursion also contributing to reduced epiglottic inversion. UES opening adequate for passage of trials of thin liquid, nectar thick liquid and regular textures. During trial of barium tablet, observed tablet to delay in the pyriform sinuses after initial swallow of thin liquid , but passed through the UES with spontaneous dry swallow. Pill observed to move slowly downward, requiring additional water to pass completely through esophagus and into the stomach. Patient sensate to this, but did not report pain. Slowed passage suspected due to pharyngeal dryness secondary to GERD. However, able to tolerate safely with increased liquid intake. Rehabilitation Potential Excellent Patient Appropriate for Therapy Yes Recommendations Diet Liquids Order Thin Diet Order Regular Medication Recommendation As Tolerated Comments Whole in liquid or carrier, per preference Aspiration Precautions Recommended Precautions Upright at 90 Degrees Alternate Liquids/Solids Effortful Swallow Additional Precautions Add moisture to dry foods to improve clearance Treatment Plan Therapy Recommendations Outpatient Speech Therapy Lingual Exercises Base of Tongue Exercises GERD/Vocal Hygiene Education Recommended Referrals Primary Care Physician Compensatory Strategies Recommendations Double Swallow Small Bites and Sips Alternate Liquids/Solids Short Term Goals Patient will attend outpatient speech therapy for improved pharyngeal strength to improve swallow function. Patient will receive additional education regarding dyshpagia and steps to manage saliva to improve control and clearance. Placement Recommendation After Discharge Home
== END ==
PROVIDERS: PCP Family Medicine; Visit Provider Family Medicine
DX: T17.308A Unspecified foreign body in larynx causing other injury, initial encounter (principal); R13.10 Dysphagia, unspecified; K22.5 Diverticulum of esophagus, acquired
CPT/HCPCS: 74230; 92611

== ENCOUNTER 2019-02-24 13:30 | Outpatient (RCR) | payer MEDICARE, BC, SELFPAY ==
--- NOTE | 2019-02-04 11:07 | ST.IPDYTX ---
Care Team Visit Care Team Role Provider Type Che Lopez DO Attending Provider Physician Primary Care Provider Specialty: Family Practice Address: [address] [place] [address], [id number] Email: [email or web address] IT ANALYST Dysphagia Treatment IT ANALYST Dysphagia Treatment Start: 02/04/19 10:45 Freq: Status: Active Protocol: Document 02/03/19 13:00 TLC (Rec: 02/04/19 11:07 TLC [id number]) Dysphagia Treatment Session Time Visit Start Time 13:00 Visit Stop Time 13:40 Total Visit Minutes 40 Visit Information Visit Number 1 Plan of Care Dates 02/03/19-05/06/19 Insurance Information Medicare Setting Assessment Location Outpatient Care Visit Type Note Type Treatment Note Next Note Type Next Note Type Treatment Note Patient Information Identification Type Name Subjective Observations Senia arrived on time. She stated she was happy to be here and eager to improve her symptoms. Treatment Treatment Activities Extensive education provided regarding results of MBSS on . Reviewed imaging and discussed general swallowing anatomy and impairments identified, specifically reduced tongue base strength, reduced epiglottic inversion and reduced hyolaryngeal elevation. Written and verbal education provided on recommended exercises to improve pharyngeal function: effortful swallow, angely maneuver and tongue pull backs . Recommend each exercise be completed in sets of 10 with 3 -4 sets daily. Further education regarding presence of diverticuli, GERD and strategies to prevent the development of med-induced esophageal injury: sitting upright, take meds with a glass of water, one medication at a time. Patient reports she takes minimal medication. Assessment Patient Response to Treatment Good Rehab Potential Good Diet Recommendations Recommendations Continue Current Diet Medication Recommendations One at a Time Aspiration Precautions Recommended Precautions Upright at 90 Degrees Alternate Liquids/Solids Small Bites/Sips Effortful Swallow Double Swallow Angely Maneuvor Treatment Plan Placement Recommendation after Discharge Home Appropriate for Continued Therapy Yes Dysphagia Goals Given written information, Senia will comply with home exercise program consisting of Effortful Swallow and Angely maneuver as prescribed per report in order to improve pharyngeal function. Senia will verbalized understanding of and compliance with recommended strategies per report in order to decrease aspiration risk and increase swallow safety. Follow Up Plan f/u in 3 weeks
--- NOTE | 2019-02-24 15:48 | ST.IPDYTX ---
Care Team Visit Care Team Role Provider Type Che Lopez DO Attending Provider Physician Primary Care Provider Specialty: Family Practice Address: [address] [place] [address], [address] Email: [email or web address] REPAIR TABLE OPERATOR Dysphagia Treatment REPAIR TABLE OPERATOR Dysphagia Treatment Start: 02/04/19 10:45 Freq: Status: Active Protocol: Document 02/24/19 15:40 TLC (Rec: 02/24/19 15:47 TLC [id number]) Dysphagia Treatment Session Time Visit Start Time 13:30 Visit Stop Time 14:00 Total Visit Minutes 40 Visit Information Visit Number 2 Plan of Care Dates 02/03/19-05/06/19 Insurance Information Medicare Setting Assessment Location Outpatient Care Visit Type Note Type Discharge Summary Patient Information Identification Type Name Subjective Observations Brooke arrived on time. Treatment Treatment Activities Reviewed exercises given last session: Shauna, effortful and tongue pull backs and introduced tongue pull backs against resistance. Completed 10 repetitions of each and instructed in completion of 4- 5 sets daily for home exercise program. Reviewed GERD precautions and compensatory strategies for swallowing. Patient reports she is being seen by an business area director for assessment and management of symptoms. Assessment Patient Response to Treatment Good Assessment of Improvement Patient reports she has been inconsistent with completion of exercises due to family being in town. Despite this, she is performing exercises correctly and has written information to follow. She is being discharged to complete home program. It is recommended she continue exercises at home and return if symptoms worsen. Diet Recommendations Recommendations Continue Current Diet Medication Recommendations One at a Time Aspiration Precautions Recommended Precautions Upright at 90 Degrees Alternate Liquids/Solids Small Bites/Sips Effortful Swallow Double Swallow Shauna Maneuvor Treatment Plan Appropriate for Continued Therapy No Therapy Recommendations Discharge to home program Dysphagia Goals Given written information, Senia will comply with home exercise program consisting of Effortful Swallow and Shauna maneuver as prescribed per report in order to improve pharyngeal function. - GOOD PROGRESS, CONTINUE AT HOME Senia will verbalized understanding of and compliance with recommended strategies per report in order to decrease aspiration risk and increase swallow safety. - GOAL MET
== END 2019-03-10 10:03 | disposition home or self-care (01) ==
LOC: SP 13:30
PROVIDERS: PCP Family Medicine; Visit Provider Family Medicine
DX: R13.10 Dysphagia, unspecified (principal)
CPT/HCPCS: 92526

== ENCOUNTER → 2020-03-23 14:36 | Outpatient (CLI) | payer MEDICARE, BC, SELFPAY ==
[2020-03-23 16:11] LABS: Alanine Aminotransferase 16 IU/L (<35); Albumin 4.1 g/dL (3.5-5.0); Albumin Globulin Ratio 1.9 (1.0-2.8); Alkaline Phosphatase 64 U/L (38-126); Aspartate Aminotransferase 26 IU/L (14-36); BUN Creatinine Ratio 22.4 (6-22); Bilirubin Total 0.6 mg/dL (0.2-1.3); Blood Urea Nitrogen 17 mg/dL (7-17); Calcium 9.7 mg/dL (8.4-10.2); Carbon Dioxide 29 mmol/L (22-32); Chloride 104 mmol/L (98-107); Estimated Glomerular Filt Rate > 60.0 mL/min (>60); Globulin 2.2 g/dL (1.7-4.1); Glucose 95 mg/dL (80-110); HEMOLYSIS < 15 (0-50); Potassium 4.5 mmol/L (3.4-5.1); Sodium 138 mmol/L (137-145); Total Protein 6.3 g/dL (6.3-8.2)
== END ==
PROVIDERS: PCP Family Medicine; Referring Provider Registered Nurse; Visit Provider Registered Nurse
DX: R60.0 Localized edema (principal)
CPT/HCPCS: 36415; 80053

== ENCOUNTER → 2020-05-18 12:38 | Outpatient (CLI) | payer MEDICARE, BC, SELFPAY ==
--- NOTE | 2020-05-18 12:40 | DI.US.S_ITS ---
PROCEDURE: US EXTREMITY NONVASC LOWER LT INDICATIONS: soft tissue masses in thigh TECHNIQUE: Real-time scanning was performed of the left lower extremity , with image documentation. COMPARISON: None. FINDINGS: There are multiple echogenic subcutaneous masses within the left lower extremity, probably lipomas measurin.9 x 0.6 x 1.7 cm 1.7 x 1.0 x 1.6 cm 1.4 x 0.9 x 1.4 cm. 1.3 x 0.8 x 1.1 cm IMPRESSION: Multiple echogenic subcutaneous mass is probably lipomas as above. However, technically indeterminate and recommend clinical correlation and management. If needed, continued surveillance with ultrasound could be performed depending on clinical suspicion. Dictated by: Kaiser Almanzar M.D. on 05/18/2020 at 16:17 Approved by: Kaiser Almanzar M.D. on 05/18/2020 at 16:19
== END ==
PROVIDERS: PCP Family Medicine; Referring Provider Family Medicine; Visit Provider Family Medicine
DX: R22.42 Localized swelling, mass and lump, left lower limb (principal); M79.89 Other specified soft tissue disorders
CPT/HCPCS: 76882

== ENCOUNTER → 2021-11-04 14:51 | Outpatient (CLI) | payer MEDICARE, BC, SELFPAY ==
--- NOTE | 2021-11-04 14:53 | DI.RAD.S_ITS ---
PROCEDURE: XR CERVICAL SPINE 2V OR 3V INDICATIONS: pain without trauma in hips, shoulder, and back TECHNIQUE: 3 view(s) of the cervical spine were acquired. COMPARISON: None. FINDINGS: Bones: No fractures or dislocations to the T1 level. The lateral masses of C1 appear intact on the odontoid view. No suspicious bony lesions. Degenerative changes of the cervical spine with endplate osteophytosis, disc height loss, uncovertebral/facet arthrosis, and posterior disc osteophyte complexes, most prominent at C4 -7. Soft tissues: No prevertebral soft tissue swelling. IMPRESSION: Cervical spine degeneration as detailed above. Dictated by: Jay Bourgeois M.D. on 11/04/2021 at 16:11 Approved by: Jay Bourgeois M.D. on 11/04/2021 at 16:13
--- NOTE | 2021-11-04 14:53 | DI.RAD.S_ITS ---
PROCEDURE: XR SHOULDER LT MIN 2V INDICATIONS: pain without trauma in hips, shoulder, and back TECHNIQUE: 3 views of the shoulder were acquired. COMPARISON: None. FINDINGS: Bones: No fractures or dislocations. No suspicious bony lesions. Visualized ribs appear intact. Moderate to severe acromioclavicular degenerative narrowing. Humeral head is mildly high-riding. Soft tissues: No suspicious soft tissue calcifications. IMPRESSION: High riding appearance of the humeral head, which can be indicative of rotator cuff pathology. Moderate to severe acromial clavicular arthritic change. Dictated by: Tory Rajput M.D. on 11/04/2021 at 17:24 Approved by: Tory Rajput M.D. on 11/04/2021 at 17:24
--- NOTE | 2021-11-04 14:53 | DI.RAD.S_ITS ---
PROCEDURE: XR HIP W PEL IF DONE CRISTOPHER MIN 4V INDICATIONS: pain without trauma in hips, shoulder, and back TECHNIQUE: AP pelvis with lateral view(s) of the right and left hip(s). COMPARISON: None. FINDINGS: Bones: No fractures or dislocations. Pelvic ring appears intact. No suspicious bony lesions. Mild bilateral hip osseous hypertrophy compatible with mild osteoarthritis. Soft tissues: The visualized bowel gas pattern is normal. No suspicious soft tissue calcifications. IMPRESSION: Mild bilateral hip osteoarthritis. Dictated by: Chloe Devries MD, PhD on 11/04/2021 at 17:13 Approved by: Chloe Devries MD, PhD on 11/04/2021 at 17:14
--- NOTE | 2021-11-04 14:53 | DI.RAD.S_ITS ---
PROCEDURE: XR LUMBAR SPINE 2-3V INDICATIONS: pain without trauma in hips, shoulder, and back TECHNIQUE: 3 views of the lumbar spine were acquired. COMPARISON: [facility], , -SPINE 2-3 VIEWS, 04/23/2016, 15:35. FINDINGS: Bones: 5 [id number] vertebrae are present. There is normal bony alignment. No vertebral body compression fractures. No suspicious bony lesions. Advanced lower lumbar facet arthropathy. Multilevel degenerative disc space loss. Suspect canal stenosis. Soft tissues: Overlying bowel gas pattern is normal. No suspicious soft tissue calcifications. IMPRESSION: Lumbar degenerative change. Suspect canal stenosis. No evidence of acute bony abnormality of the lumbar spine. Comment: Lumbar spine MRI may potentially be helpful. Dictated by: Jose Angel Grubbs M.D. on 11/04/2021 at 17:51 Approved by: Jose Angel Grubbs M.D. on 11/04/2021 at 17:51
== END ==
PROVIDERS: PCP Family Medicine; Referring Provider Family Medicine; Visit Provider Family Medicine
DX: M47.812 Spondylosis without myelopathy or radiculopathy, cervical region (principal); M47.816 Spondylosis without myelopathy or radiculopathy, lumbar region; M16.0 Bilateral primary osteoarthritis of hip; M25.512 Pain in left shoulder; M25.551 Pain in right hip; M25.552 Pain in left hip
CPT/HCPCS: 72040; 72100; 73030; 73522

== ENCOUNTER → 2021-11-19 11:17 | Outpatient (CLI) | payer MEDICARE, BC, SELFPAY | PROVIDERS: PCP Family Medicine; Referring Provider Family Medicine; Visit Provider Family Medicine | DX: M81.0 Age-related osteoporosis without current pathological fracture; Z78.0 Asymptomatic menopausal state | CPT/HCPCS: 77080 ==

== ENCOUNTER → 2022-01-24 07:54 | Outpatient (CLI) | payer MEDICARE, BC, SELFPAY ==
[2022-01-24 09:00] LABS: Add Manual Diff / Slide Review NO; Basophils Absolute Auto 0 /uL (0-100); Eosinophils Absolute Auto 100 /uL (0-450); Eosinophils Percent Auto 2.6 % (2-4); Hematocrit 40.5 % (36-46); Hemoglobin 13.8 g/dL (12.0-16.0); Lymphocytes Absolute Auto 1300 /uL (1100-4500); Lymphocytes Percent Auto 38.5 % (25-40); Mean Corpuscular HGB Conc 34.1 % (30-36); Mean Corpuscular Hemoglobin 30.3 PG (26-34); Mean Corpuscular Volume 88.7 fL (80-100); Monocytes Absolute Auto 400 /uL (0-900); Monocytes Percent Auto 10.7 % (3-14); Neutrophils Absolute Auto 1600 /uL (1500-7000); Neutrophils Percent Auto 47.2 % (50-75); Platelet Count 196 X10^3/uL (150-400); Red Blood Cell Count 4.56 X10^6/uL (4.0-5.2); White Blood Cell Count 3.4 X10^3/uL (4.5-11.0)
[2022-01-24 10:44] LABS: Alanine Aminotransferase 15 IU/L (<35); Albumin 3.8 g/dL (3.5-5.0); Albumin Globulin Ratio 1.7 (1.0-2.8); Alkaline Phosphatase 53 U/L (38-126); Aspartate Aminotransferase 24 IU/L (14-36); BUN Creatinine Ratio 31.3 (6-22); Bilirubin Total 0.8 mg/dL (0.2-1.3); Blood Urea Nitrogen 20 mg/dL (7-17); Calcium 8.9 mg/dL (8.4-10.2); Carbon Dioxide 27 mmol/L (22-32); Chloride 106 mmol/L (98-107); Cholesterol 187 mg/dL (140-199); Estimated Glomerular Filt Rate > 60 mL/min (>60); Globulin 2.2 g/dL (1.7-4.1); Glucose 88 mg/dL (80-110); HDL Cholesterol 55 mg/dL (40-60); HEMOLYSIS < 15 (0-50); LDL Cholesterol Calculated 113 mg/dL (<100); Potassium 4.4 mmol/L (3.4-5.1); Sodium 139 mmol/L (137-145); Triglycerides 95 mg/dL (35-150)
[2022-01-24 10:47] LABS: Vitamin D 25 Hydroxy (D3) 51.7 ng/mL (30.0-100.0)
[2022-01-24 10:59] LABS: TSH w/ Reflex to FT4 2.13 uIU/mL (0.47-4.68)
== END ==
PROVIDERS: PCP Pediatrics; Referring Provider Pediatrics; Visit Provider Pediatrics
DX: J30.9 Allergic rhinitis, unspecified (principal); M48.00 Spinal stenosis, site unspecified; M81.0 Age-related osteoporosis without current pathological fracture
CPT/HCPCS: 36415; 80053; 80061; 82306; 84443; 85025

== ENCOUNTER → 2022-04-01 10:53 | Outpatient (CLI) | payer MEDICARE, BC, SELFPAY ==
--- NOTE | 2022-04-01 10:57 | DI.US.S_ITS ---
PROCEDURE: US CAROTID DOPPLER BI INDICATIONS: DIZZINESS TECHNIQUE: Color and pulse Doppler interrogation was performed of both carotid systems, with image documentation and velocity measurements. COMPARISON: None. FINDINGS: Stenosis calculations are based on SRU (Society of Radiologists in Ultrasound) criteria. Right side: Brachial blood pressure: 104/65 mm Hg. Common carotid artery peak systolic velocity: 136 cm/sec. Internal carotid artery peak systolic velocity: 85 cm/sec. Internal carotid artery end diastolic velocity: 27 cm/sec. External carotid artery peak systolic velocity: 94 cm/sec. ICA/CCA peak systolic ratio: 0.6 . Chambers scale imaging description: Atheromatous plaque is present within the right ICA Percent internal carotid artery stenosis: Less than 50% stenosis . Vertebral artery: Flow direction is antegrade. Left side: Brachial blood pressure: 103/65 mm Hg. Common carotid artery peak systolic velocity: 107 cm/sec. Internal carotid artery peak systolic velocity: 105 cm/sec. Internal carotid artery end diastolic velocity: 30 cm/sec. External carotid artery peak systolic velocity: 94 cm/sec. ICA/CCA peak systolic ratio: 1.0 . Chambers scale imaging description: Atheromatous plaque is present within the left ICA Percent internal carotid artery stenosis: Less than 50% stenosis . Vertebral artery: Flow direction is antegrade. There is an incidentally noted left thyroid lobe nodule which is isoechoic, smoothly marginated without calcifications which measures 1.3 x 1.0 x 0.7 cm. IMPRESSION: 1. Less than 50% stenosis of the bilateral internal carotid arteries. 2. T3 left thyroid nodule. Given size, no further follow-up recommended. Approved by: Nayla Mtz M.D. on 04/01/2022 at 16:43
== END ==
PROVIDERS: PCP Pediatrics; Referring Provider Pediatrics; Visit Provider Pediatrics
DX: I65.23 Occlusion and stenosis of bilateral carotid arteries (principal); E04.1 Nontoxic single thyroid nodule; R42 Dizziness and giddiness
CPT/HCPCS: 93880

== ENCOUNTER → 2022-08-17 14:15 | Outpatient (CLI) | payer MEDICARE, BC, SELFPAY ==
[2022-08-17 14:59] LABS: Influenza A - CEPHEID Flu A NEGATIVE (NEGATIVE); Influenza B - CEPHEID Flu B NEGATIVE (NEGATIVE); Respiratory Syncytial Virus Negative (Negative)
[2022-08-17 15:06] LABS: COVID-19 CEPHEID 4-PLEX PCR Negative (Negative)
== END ==
PROVIDERS: PCP Family Medicine; Visit Provider Nurse Practitioner Family
DX: R05.1 Acute cough (principal)
CPT/HCPCS: 0241U

== ENCOUNTER → 2022-11-18 14:41 | Outpatient (CLI) | payer MEDICARE, BC, SELFPAY ==
[2022-11-18 15:29] LABS: Add Manual Diff / Slide Review NO; Basophils Absolute Auto 100 /uL (0-100); Eosinophils Absolute Auto 200 /uL (0-450); Eosinophils Percent Auto 3.6 % (2-4); Hematocrit 42.1 % (36-46); Hemoglobin 14.4 g/dL (12.0-16.0); Lymphocytes Absolute Auto 1600 /uL (1100-4500); Lymphocytes Percent Auto 32.5 % (25-40); Mean Corpuscular HGB Conc 34.2 % (30-36); Mean Corpuscular Hemoglobin 30.7 PG (26-34); Mean Corpuscular Volume 89.5 fL (80-100); Monocytes Absolute Auto 500 /uL (0-900); Monocytes Percent Auto 10.6 % (3-14); Neutrophils Absolute Auto 2600 /uL (1500-7000); Neutrophils Percent Auto 52.3 % (50-75); Platelet Count 261 X10^3/uL (150-400); Red Cell Distribution Width 13.7 % (11.6-14.8); White Blood Cell Count 4.9 X10^3/uL (4.5-11.0)
[2022-11-18 16:16] LABS: Alanine Aminotransferase 21 IU/L (<35); Albumin Globulin Ratio 1.4 (1.0-2.8); Alkaline Phosphatase 68 U/L (38-126); Aspartate Aminotransferase 26 IU/L (14-36); BUN Creatinine Ratio 26.2 (6-22); Bilirubin Total 0.5 mg/dL (0.2-1.3); Blood Urea Nitrogen 17 mg/dL (7-17); Calcium 9.3 mg/dL (8.4-10.2); Carbon Dioxide 29 mmol/L (22-32); Chloride 102 mmol/L (98-107); Estimated Glomerular Filt Rate > 60 mL/min (>60); Globulin 2.8 g/dL (1.7-4.1); Glucose 92 mg/dL (80-110); HEMOLYSIS 16 (0-50); Potassium 4.2 mmol/L (3.4-5.1); Sodium 138 mmol/L (137-145); Total Protein 6.8 g/dL (6.3-8.2); Uric Acid 4.1 mg/dL (2.5-6.2)
[2022-11-18 16:21] LABS: High Sensitivity CRP - Cardiac 1.9 mg/L (1.0-3.0); Rheumatoid Factor < 8.6 IU/mL (<12.0)
[2022-11-18 22:45] LABS: Erythrocyte Sedimentation Rate 5 MM/HR (0-20)
[2022-11-20 18:12] LABS: SS A Ro Sjogrens Antibody 0.2 AI (0.0-0.9); SS B La Sjogrens Antibody < 0.2 AI (0.0-0.9)
[2022-11-20 21:07] LABS: ANA Screen, IFA Negative (.)
== END ==
PROVIDERS: PCP Family Medicine; Referring Provider Ophthalmology; Visit Provider Ophthalmology
DX: H57.12 Ocular pain, left eye (principal); R51.9 Headache, unspecified; H16.223 Keratoconjunctivitis sicca, not specified as Sjogren's, bilateral; E03.9 Hypothyroidism, unspecified; R53.83 Other fatigue
CPT/HCPCS: 36415; 80053; 84443; 84550; 85025; 85651; 86038; 86140; 86235; 86430

== ENCOUNTER → 2023-01-02 14:34 | Outpatient (CLI) | payer MEDICARE, BC, SELFPAY ==
[2023-01-02 15:36] LABS: Influenza A - CEPHEID Flu A NEGATIVE (NEGATIVE); Influenza B - CEPHEID Flu B NEGATIVE (NEGATIVE); Respiratory Syncytial Virus Negative (Negative)
[2023-01-02 15:41] LABS: COVID-19 CEPHEID 4-PLEX PCR Negative (Negative)
== END ==
PROVIDERS: PCP Family Medicine; Visit Provider Family Medicine
DX: R05.9 Cough, unspecified (principal); Z20.822 Contact with and (suspected) exposure to COVID-19
CPT/HCPCS: 0241U

== ENCOUNTER → 2023-01-06 17:11 | Outpatient (CLI) | payer MEDICARE, BC, SELFPAY ==
--- NOTE | 2023-01-06 17:13 | DI.RAD.S_ITS ---
PROCEDURE: XR CHEST 2V INDICATIONS: persistent cough TECHNIQUE: 2 views of the chest were acquired. COMPARISON: [facility], , CHEST 2 VIEW, 12/13/2009, 16:48. FINDINGS: Surgical changes and devices: None. Lungs and pleura: Patchy opacities present at the right mid and lower lung and to a lesser extent the left lung base. No pleural effusion or pneumothorax. Mediastinum: Mediastinal contours are normal. Heart size is normal. Bones and chest wall: No suspicious bony abnormalities. Soft tissues appear unremarkable. IMPRESSION: Multifocal pulmonary opacities most pronounced at the right lung could represent pneumonia in the appropriate clinical setting. Imaging follow-up to ensure resolution may be helpful, for example 6-8 weeks after completion of therapy. Dictated by: Malcolm Verduzco M.D. on 01/07/2023 at 12:25 Approved by: Malcolm Verduzco M.D. on 01/07/2023 at 12:29
== END ==
PROVIDERS: PCP Family Medicine; Referring Provider Family Medicine; Visit Provider Family Medicine
DX: R91.8 Other nonspecific abnormal finding of lung field (principal)
CPT/HCPCS: 71046

== ENCOUNTER → 2023-08-07 08:53 | Outpatient (CLI) | payer MEDICARE, BC, SELFPAY ==
[2023-08-07 10:04] LABS: Cholesterol 197 mg/dL (140-199); HDL Cholesterol 49 mg/dL (40-60); LDL Cholesterol Calculated 116 mg/dL (<100); Triglycerides 159 mg/dL (35-150)
== END ==
PROVIDERS: PCP Family Medicine; Referring Provider Family Medicine; Visit Provider Family Medicine
DX: E78.5 Hyperlipidemia, unspecified (principal)
CPT/HCPCS: 36415; 80061

== ENCOUNTER → 2023-08-28 14:14 | Outpatient (CLI) | payer MEDICARE, BC, SELFPAY | PROVIDERS: PCP Family Medicine; Referring Provider Family Medicine; Visit Provider Family Medicine | DX: E55.9 Vitamin D deficiency, unspecified (principal) | CPT/HCPCS: 36415 ==

== ENCOUNTER → 2023-09-28 15:13 | Outpatient (CLI) | payer MEDICARE, BC, SELFPAY ==
[2023-09-28 16:53] LABS: Vitamin D 25 Hydroxy (D3) 37.5 ng/mL (30.0-100.0)
== END ==
PROVIDERS: PCP Family Medicine; Referring Provider Family Medicine; Visit Provider Family Medicine
DX: E55.9 Vitamin D deficiency, unspecified (principal)
CPT/HCPCS: 82306

== ENCOUNTER → 2024-01-18 14:21 | Outpatient (CLI) | payer MEDICARE, BC, SELFPAY ==
--- NOTE | 2024-01-18 14:23 | DI.RAD.S_ITS ---
PROCEDURE: XR CHEST 2V INDICATIONS: cough TECHNIQUE: 2 views of the chest were acquired. COMPARISON: [facility], CR, XR CHEST 2V, 01/06/2023, 17:08. FINDINGS: Surgical changes and devices: None. Lungs and pleura: Lungs are clear. Resolution of patchy right-sided pneumonia. No pleural effusions or pneumothorax. Mediastinum: Mediastinal contours are normal. Heart size is normal. Bones and chest wall: No suspicious bony abnormalities. Soft tissues appear unremarkable. IMPRESSION: Previous patchy right-sided pneumonia has resolved. Dictated by: Jose Angel Grubbs M.D. on 01/18/2024 at 15:27 Approved by: Jose Angel Grubbs M.D. on 01/18/2024 at 15:32
== END ==
PROVIDERS: Family Provider Family Medicine; PCP Family Medicine; Referring Provider Nurse Practitioner Family; Visit Provider Nurse Practitioner Family
DX: R05.9 Cough, unspecified (principal)
CPT/HCPCS: 71046

== ENCOUNTER 2024-02-05 13:27 | Emergency (ER) | payer MEDICARE, BC, SELFPAY ==
[2024-02-05] VITALS (9 sets, daily range): BP systolic 117–140; BP diastolic 57–64; PULSE 56–65; RESP 14–20; TEMP 36.6; O2SAT 93–99; BMI 25.6
--- NOTE | 2024-02-05 13:39 | DI.RAD.S_ITS ---
PROCEDURE: XR CHEST 1V INDICATIONS: chest pain TECHNIQUE: One view of the chest was acquired. COMPARISON: [facility], CR, XR CHEST 2V, 01/18/2024, 13:33. [facility], CR, XR CHEST 2V, 01/06/2023, 17:08. FINDINGS: Surgical changes and devices: None. Lungs and pleura: Lungs are clear. No pleural effusions or pneumothorax. Mediastinum: Mediastinal contours appear normal. Heart size is normal. Bones and chest wall: No suspicious bony lesions. Overlying soft tissues appear unremarkable. IMPRESSION: No acute cardiopulmonary abnormality is seen. Dictated by: Alex Tidwell M.D. on 02/05/2024 at 13:55 Approved by: Alex Tidwell M.D. on 02/05/2024 at 13:56
[2024-02-05] MEDS: ASPIRIN 81 MG CHEW TAB 324 MG PO (13:52)
--- NOTE | 2024-02-05 14:01 | EKG_ITS ---
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
[2024-02-05 14:04] LABS: Add Manual Diff / Slide Review NO; Basophils Absolute Auto 100 /uL (0-100); Basophils Percent Auto 1.3 % (0-2); Eosinophils Absolute Auto 200 /uL (0-450); Eosinophils Percent Auto 3.7 % (2-4); Hematocrit 41.4 % (36-46); Hemoglobin 14.4 g/dL (12.0-16.0); Lymphocytes Absolute Auto 1600 /uL (1100-4500); Lymphocytes Percent Auto 36.4 % (25-40); Mean Corpuscular HGB Conc 34.7 % (30-36); Mean Corpuscular Hemoglobin 31.4 PG (26-34); Mean Corpuscular Volume 90.5 fL (80-100); Monocytes Absolute Auto 500 /uL (0-900); Monocytes Percent Auto 12.7 % (3-14); Neutrophils Absolute Auto 2000 /uL (1500-7000); Neutrophils Percent Auto 45.9 % (50-75); Platelet Count 234 X10^3/uL (150-400); Red Blood Cell Count 4.58 X10^6/uL (4.0-5.2); Red Cell Distribution Width 13.1 % (11.6-14.8); White Blood Cell Count 4.3 X10^3/uL (4.5-11.0)
--- NOTE | 2024-02-05 14:08 | ED_ITS ---
HPI - Chest Pain General Chief Complaint: Chest Pain Stated Complaint: Chest pain Time Seen by Provider: 02/05/24 13:40 Source: patient and family Mode of arrival: Ambulatory Limitations: no limitations History of Present Illness HPI narrative: Patient is an 78-year-old female who is here for evaluation of multiple intermittent episodes of lower abdominal discomfort. She states that it has happened 2 times today but also happened yesterday. It has also happened in the past. When it comes on it lasts for minutes and then goes away. Not associated with eating. Not associated with movement. No shortness of breath. She does have lower extremity swelling but this is not new for her. No abdominal pain nausea vomiting. It does radiate around to her back on the right side. Related Data Home Medications Medication Instructions Recorded Confirmed cholecalciferol (vitamin D3) 50 2,000 unit PO DAILY 05/05/18 01/20/24 mcg (2,000 unit) capsule Respironics DreamStation CPAP #1 ea 12/07/18 01/20/24 calcium carbonate (Calcium 500) 1,000 mg PO DAILY 05/16/22 01/20/24 [id number]-[id number]-exmemiei 3.5 1 drp EYE-BOTH 11/25/22 01/20/24 mg/mL-10,000 unit/mL-0.1% eye drops magnesium citrate (Citrate of 150 ml PO DAILY 01/16/23 01/20/24 Magnesia oral) vitamin B complex 1 tab PO DAILY 01/16/23 01/20/24 Previous Rx's Medication Instructions Recorded CMP Estriol 1mg Vaginal Pina 10 mcg vaginal 2XW #24 tabs 08/28/23 Allergies Allergy/AdvReac Type Severity Reaction Status Date / Time MRI contrast Allergy Unknown Uncoded 02/05/24 13:30 Review of Systems Constitutional Constitutional: Reports system reviewed and no additional complaints, except as documented Cardiovascular Cardiovascular: Reports system reviewed and no additional complaints, except as documented Respiratory Respiratory: Reports system reviewed and no additional complaints, except as documented Gastrointestinal Gastrointestinal: Reports system reviewed and no additional complaints, except as documented Integumentary/Breasts Skin/Breast: Reports system reviewed and no additional complaints, except as documented Neurologic Neurologic: Reports system reviewed and no additional complaints, except as documented Patient History Medical History Injury of right rotator cuff Sinus congestion Community acquired pneumonia Dyspareunia, female Thyroid nodule Spinal stenosis Osteoporosis Actinic keratosis Tension headache Vocal cord dysfunction Allergic rhinitis House dust mite allergy Cervical intraepithelial neoplasia (BEATRIZ) Excessive daytime sleepiness (~2014) Obstructive sleep apnea of adult (~2014) Snoring (~2014) Primary insomnia (~2014) History of nonmelanoma skin cancer Osteopenia after menopause Mixed basal-squamous cell carcinoma Family history of neoplasm of brain (12/23/16) Hyperlipidemia (12/23/16) Diverticulosis of sigmoid colon (05/01/16) Internal hemorrhoids (05/01/16) History of colonic polyps (05/01/16) Surgical History History of tonsillectomy (~1947) Status post cone biopsy of cervix (~1989) Family History Grandmother Colon cancer Father No problems noted. Grandfather No problems noted. Family/Other No problems noted. Social History marital status: details: to Korey Mccann, lives in [place] household members: spouse lives independently: Yes caregiver/support person: No housing: house Smoking Status: Former smoker alcohol intake: former substance use type: does not use Smoking Status: Former smoker Substance Use Type: does not use Exam Initial Vital Signs Initial Vital Signs: Vital Signs Temperature 97.8 F 02/05/24 13:30 Pulse Rate 65 02/05/24 13:30 Respiratory Rate 16 02/05/24 13:30 Blood Pressure 140/64 02/05/24 13:30 Pulse Oximetry 98 02/05/24 13:30 Oxygen Delivery Method Room Air 02/05/24 13:30 Const General: cooperative and comfortable HENMT Head: normal to inspection and normocephalic Resp Effort & Inspection: normal respiratory effort Auscultation: clear to auscultation bilaterally Cardio Rate: regular rate Rhythm: regular rhythm GI Inspection: normal to inspection and non-distended Skin General: no rashes or lesions noted Neuro General: patient alert and patient awake Course Orders Ordered: ED Orders 02/05/24 13:39 XR chest 1V Stat EKG-12 Lead Stat 02/05/24 13:57 Complete Blood Count AUTO DIFF Stat Comprehensive Metabolic Panel Stat Lipase Stat Magnesium Stat PTT Partial Thromboplastin Sudheer Stat Prothrombin Time INR Stat Troponin & CK Cardiac Panel Stat 02/05/24 16:02 Troponin & CK Cardiac Panel Stat Discontinued Medications Aspirin (Aspirin 81 Mg Chew Tab) 324 mg PO NOW ONE Stop: 02/05/24 13:40 Last Admin: 02/05/24 13:52 Dose: 324 mg Documented By: REGGIE Vital Signs Vital signs: Vital Signs - 8 hr 02/05/24 13:30 02/05/24 13:53 02/05/24 13:57 Temperature 97.8 F Pulse Rate 65 62 63 Respiratory Rate 16 20 Blood Pressure 140/64 Pulse Oximetry 98 95 93 Oxygen Delivery Method Room Air 02/05/24 13:57 02/05/24 14:00 02/05/24 14:00 Temperature Pulse Rate 60 Respiratory Rate 15 Blood Pressure 124/61 125/58 L Pulse Oximetry 98 Oxygen Delivery Method 02/05/24 14:30 02/05/24 14:30 02/05/24 15:00 Temperature Pulse Rate 58 L Respiratory Rate 16 Blood Pressure 119/61 129/63 Pulse Oximetry 97 Oxygen Delivery Method 02/05/24 15:00 02/05/24 15:30 02/05/24 15:30 Temperature Pulse Rate 56 L 56 L Respiratory Rate 14 17 Blood Pressure 117/62 Pulse Oximetry 96 99 Oxygen Delivery Method 02/05/24 16:00 02/05/24 16:00 Temperature Pulse Rate 56 L Respiratory Rate 18 Blood Pressure 126/60 Pulse Oximetry 98 Oxygen Delivery Method MDM - Chest Pain Lab Data Attestation: I reviewed the patient's lab results. 02/05/24 13:57 02/05/24 13:57 Labs: Lab Results 02/05/24 02/05/24 Range/Units 13:57 16:02 WBC 4.3 L (4.5-11.0) X10^3/uL RBC 4.58 (4.0-5.2) X10^6/uL Hgb 14.4 (12.0-16.0) g/dL Hct 41.4 (36-46) % MCV 90.5 (80-100) fL MCH 31.4 (26-34) PG MCHC 34.7 (30-36) % RDW 13.1 (11.6-14.8) % Plt Count 234 (150-400) X10^3/uL Neut % (Auto) 45.9 L (50-75) % Lymph % (Auto) 36.4 (25-40) % [place] % (Auto) 12.7 (3-14) % Eos % (Auto) 3.7 (2-4) % Baso % (Auto) 1.3 (0-2) % Neut # (Auto) 2000 (9384-4936) /uL Lymph # (Auto) 1600 (1470-5755) /uL [place] # (Auto) 500 (0-900) /uL Eos # (Auto) 200 (0-450) /uL Baso # (Auto) 100 (0-100) /uL PT 12.1 (9.4-12.5) SECONDS INR 1.1 (0.9-1.3) APTT 42 H (25.1-36.5) SECONDS Sodium 139 (137-145) mmol/L Potassium 4.0 (3.4-5.1) mmol/L Chloride 107 (98-107) mmol/L Carbon Dioxide 30 (22-32) mmol/L BUN 18 H (7-17) mg/dL Creatinine 0.73 (0.52-1.04) mg/dL Estimated GFR > 60 (>60) mL/min BUN/Creatinine Ratio 24.7 H (6-22) Glucose 97 (80-110) mg/dL Calcium 9.3 (8.4-10.2) mg/dL Magnesium 2.1 (1.6-2.3) mg/dL Total Bilirubin 0.8 (0.2-1.3) mg/dL AST 31 (14-36) IU/L ALT 27 (<35) IU/L Alkaline Phosphatase 68 (38-126) U/L Total Creatine Kinase 75 64 (30-135) U/L Troponin I < 0.012 < 0.012 (0.01-0.034) ng/mL Total Protein 6.5 (6.3-8.2) g/dL Albumin 4.0 (3.5-5.0) g/dL Globulin 2.5 (1.7-4.1) g/dL Albumin/Globulin Ratio 1.6 (1.0-2.8) Lipase 197 (23-300) U/L Imaging Data Chest x-ray: Radiologist's Impression: PROCEDURE: XR CHEST 1V INDICATIONS: chest pain TECHNIQUE: One view of the chest was acquired. COMPARISON: [facility], CR, XR CHEST 2V, 01/18/2024, 13:33. [facility], CR, XR CHEST 2V, 01/06/2023, 17:08. FINDINGS: Surgical changes and devices: None. Lungs and pleura: Lungs are clear. No pleural effusions or pneumothorax. Mediastinum: Mediastinal contours appear normal. Heart size is normal. Bones and chest wall: No suspicious bony lesions. Overlying soft tissues appear unremarkable. IMPRESSION: No acute cardiopulmonary abnormality is seen. ECG Data Attestation: I personally reviewed and interpreted this ECG as follows: Interpretation: Sinus rhythm Ventricular rate is 61 Normal axis Normal QRS Normal QTC No ST T wave changes MDM Narrative Medical decision making narrative: 2- troponins. Has been asymptomatic since arrival here in the ER. Nonischemic EKG. Her pain is more in the epigastric region. Her LFTs, lipase are all unremarkable. We did discuss the possibility of a GI source of her symptoms. Low suspicion for ACS. Will have the patient contact her primary doctor for a follow-up. He was given return precautions. She expressed understanding and agreement. Discharge Plan Departure Patient Disposition: Home Clinical Impression: Epigastric abdominal pain, Atypical chest pain Instructions: DI for Atypical Chest Pain Activity Restrictions/Additional Instructions: I do recommend that you consider continuing to take Tums and/or famotidine. Both of these medications can be purchased [id number]. Also recommend that you contact your primary doctor to discuss further workup such as a stress test. Return to the emergency department for new or worsening symptoms. Prescriptions: No Action calcium carbonate [Calcium 500] 500 mg calcium (1,250 mg) tablet,chewable 1,000 mg PO DAILY cholecalciferol (vitamin D3) 2,000 unit capsule 2,000 unit PO DAILY neomycin-polymyxin B-dexameth 3.5mg/mL-10,000 unit/mL-0.1 % drops,suspension 1 drp EYE-BOTH vitamin B complex Tablet 1 tab PO DAILY magnesium citrate [Citrate of Magnesia] Solution 150 ml PO DAILY CMP Estriol 1mg Vaginal Pina 10 mcg Vaginal 2XW Qty: 24 3RF (DME) Respironics DreamStation CPAP Qty: 1 Dose Instruction: As directed Patient Comments: Pressure: 6-12 cmH2O DME: [facility] Rx Instructions: As directed Referrals: Ariella Costa DO [Primary Care Provider] - Stand Alone Forms: Patient Portal/API
[2024-02-05 14:13] LABS: INR 1.1 (0.9-1.3); Prothrombin Time 12.1 SECONDS (9.4-12.5)
[2024-02-05 14:15] LABS: PTT Partial Thromboplastin Tim 42 SECONDS (25.1-36.5)
[2024-02-05 14:17] LABS: Alanine Aminotransferase 27 IU/L (<35); Albumin Globulin Ratio 1.6 (1.0-2.8); Alkaline Phosphatase 68 U/L (38-126); Aspartate Aminotransferase 31 IU/L (14-36); BUN Creatinine Ratio 24.7 (6-22); Bilirubin Total 0.8 mg/dL (0.2-1.3); Blood Urea Nitrogen 18 mg/dL (7-17); Calcium 9.3 mg/dL (8.4-10.2); Carbon Dioxide 30 mmol/L (22-32); Chloride 107 mmol/L (98-107); Creatine Kinase 75 U/L (30-135); Estimated Glomerular Filt Rate > 60 mL/min (>60); Globulin 2.5 g/dL (1.7-4.1); Glucose 97 mg/dL (80-110); HEMOLYSIS < 15 (0-50); Lipase 197 U/L (23-300); Magnesium 2.1 mg/dL (1.6-2.3); Sodium 139 mmol/L (137-145); Total Protein 6.5 g/dL (6.3-8.2)
[2024-02-05 14:29] LABS: Troponin I < 0.012 ng/mL (0.01-0.034)
[2024-02-05 16:20] LABS: Creatine Kinase 64 U/L (30-135)
[2024-02-05 16:33] LABS: Troponin I < 0.012 ng/mL (0.01-0.034)
== END 2024-02-05 17:08 | disposition home or self-care (01) ==
PROVIDERS: Emergency Provider Emergency Medicine; Family Provider Family Medicine; PCP Family Medicine
DX: R10.13 Epigastric pain (principal); R07.89 Other chest pain
CPT/HCPCS: 36415; 71045; 80053; 82550; 83690; 83735; 84484; 85025; 85610; 85730; 93005; 99284

== ENCOUNTER → 2024-03-25 16:25 | Outpatient (CLI) | payer MEDICARE, BC, SELFPAY ==
--- NOTE | 2024-03-25 16:27 | DI.RAD.S_ITS ---
PROCEDURE: XR CHEST 2V INDICATIONS: COVID, SOB TECHNIQUE: 2 views of the chest were acquired. COMPARISON: [facility], CR, XR CHEST 1V, 02/05/2024, 13:43. [facility], CR, XR CHEST 2V, 01/18/2024, 13:33. [facility], CR, XR CHEST 2V, 01/06/2023, 17:08. FINDINGS: Surgical changes and devices: None. Lungs and pleura: Lungs are clear. No pleural effusions or pneumothorax. Mediastinum: Mediastinal contours are normal. Heart size is normal. Bones and chest wall: No suspicious bony abnormalities. Soft tissues appear unremarkable. IMPRESSION: No acute cardiopulmonary abnormality is seen. Approved by: Malcolm Toledo M.D. on 03/25/2024 at 17:40
== END ==
PROVIDERS: Family Provider Family Medicine; PCP Family Medicine; Referring Provider Physician Assistant Surgical; Visit Provider Physician Assistant Surgical
DX: R06.00 Dyspnea, unspecified (principal)
CPT/HCPCS: 71046

== ENCOUNTER → 2024-03-28 15:13 | Outpatient (CLI) | payer MEDICARE, BC, SELFPAY ==
--- NOTE | 2024-03-28 18:31 | DI.NM.S_ITS ---
DATE OF SERVICE: 03/28/2024 Exercise treadmill stress testing without imaging. ORDERING PROVIDER: Ariella Costa D.O. INDICATIONS: The patient is an 78-year-old female with atypical chest discomfort and exertional dyspnea following pneumonia. FINDINGS: 1. The patient was able to exercise for 3 minutes 43 seconds on a standard Arnol protocol suggesting moderately reduced exercise capacity with an AHSAN of +22%, achieving 4.6 METS. 2. She had a normal heart rate and blood pressure response to exercise, achieving a maximum 133 bpm (95% of her predicted maximum). 3. She had no reported chest discomfort or other anginal symptoms but had moderate exertional dyspnea. 4. The patient's resting ECG showed sinus rhythm at [address] segments. There were no apparent ST-segment shifts or arrhythmias with stress with the exception of an occasional isolated PVC. She had rare PACs in recovery but no other arrhythmias. IMPRESSION: 1. Normal exercise treadmill stress test for ischemia. 2. Moderately reduced exercise capacity with exertional dyspnea but no apparent chest discomfort. 3. Rare isolated PVCs with stress and rare PACs in recovery but no complex ectopy. Senia Campos - SAMREEN/issac/FINANCIAL CONSULTANT doc#: [id number]/job#: [id number] dd: 03/28/2024 17:07:00 dt: 03/28/2024 17:24:00 DICTATING MD/COPIES TO: Kameron Thompson MD; Ariella Barr D.O. COPIES ARIANAE: CARMITA; ; Ariella Barr D.O.
== END ==
PROVIDERS: Family Provider Family Medicine; PCP Family Medicine; Referring Provider Family Medicine; Visit Provider Family Medicine
DX: R07.9 Chest pain, unspecified (principal); R06.02 Shortness of breath
CPT/HCPCS: 93017

== ENCOUNTER 2024-05-11 10:30 | Outpatient (RCR) | payer MEDICARE, BC, SELFPAY ==
--- NOTE | 2023-12-14 17:42 | PT.OIE ---
Current Diagnoses Pain in right shoulder (12/14/23) Stiffness of right shoulder, not elsewhere classified (12/14/23) Complete rotator cuff tear or rupture of right shoulder, not specified as traumatic (12/14/23) Past Medical History (Last Updated 09/29/23 @ 16:37 by Ariella Costa DO) Actinic keratosis Allergic rhinitis Cervical intraepithelial neoplasia (BEATRIZ) Community acquired pneumonia Diverticulosis of sigmoid colon (05/01/16) Dyspareunia, female Excessive daytime sleepiness (~2014) Family history of neoplasm of brain (12/23/16) History of colonic polyps (05/01/16) History of nonmelanoma skin cancer House dust mite allergy Hyperlipidemia (12/23/16) Internal hemorrhoids (05/01/16) Mixed basal-squamous cell carcinoma Obstructive sleep apnea of adult (~2014) Osteopenia after menopause Osteoporosis Primary insomnia (~2014) Sinus congestion Snoring (~2014) Spinal stenosis Tension headache Thyroid nodule Vocal cord dysfunction Past Surgical History (Last Reviewed 07/24/23 @ 15:35 by Zainab Winters PA-C) History of tonsillectomy (~194) Status post cone biopsy of cervix (~1989) Visit Care Team Role Provider Type Ariella Costa DO Family Provider Physician Primary Care Provider Specialty: Medical Address: [address] [place] [address], [address], [address] Email: [email or web address] Hugh Ruffin MD Attending Provider Physician Referring Provider Specialty: Orthopedics Orthopedic Surgery Address: [address] [place] [address], [address] Email: [email or web address] [facility] Initial Evaluation PT-OP-A Visit Information Start: 12/14/23 16:36 Freq: Status: Active Protocol: Document 12/14/23 14:30 DCW (Rec: 12/14/23 16:41 DCW [id number]) Out-Patient Physical Therapy Visit Information Visit Information Visit Type Initial Evaluation Visit Start Time 14:30 Visit Stop Time 15:15 Visit Number 1 Number of GUN PERFORATOR Visits 0 Evaluation Information Evaluation Date 12/14/23 PT-OP-B Current Condition Start: 12/14/23 16:36 Freq: Status: Active Protocol: Document 12/14/23 14:30 DCW (Rec: 12/14/23 17:31 DCW [id number]) Current Condition History of Current Condition Onset Date Six month history Current Complaints Right shoulder pain, limitations with functional mobility History of Current Condition Pt is an 78 year old female presenting with a six month history of right shoulder pain . Pt was assessed by ortho and underwent an MRI, and was found to have a complete rotator cuff tear, as well as multiple partial tears. Pt denies any history of traumatic injury, unsure of the cause of her tears. Pt reports that she has fairly good ROM overall, but is limited mainly with lifting anything overhead, or reaching out with weight. Additionally , pt has difficulty when attempting to don/doff her shirt or jacket PT-OP-C Subjective Start: 12/14/23 16:36 Freq: Status: Active Protocol: Document 12/14/23 14:30 DCW (Rec: 12/14/23 16:41 DCW [id number]) OP-PT Subjective Patient Comments Patient Comments I should have aasked about an MRI for my left shoulder, too , because now that's just starting to bother me. PT-OP-F Manual Assessment Start: 12/14/23 16:36 Freq: Status: Active Protocol: Document 12/14/23 14:30 DCW (Rec: 12/14/23 17:31 DCW [id number]) Manual Assessments Soft Tissue Assessment Soft Tissue Mobility Assessment Moderate tone right upper trap , right supraspinatus. Atrophy of right infraspinatus PT-OP-K Range of Motion Start: 12/14/23 16:36 Freq: Status: Active Protocol: Document 12/14/23 14:30 DCW (Rec: 12/14/23 17:31 DCW [id number]) Shoulder Goniometric Range of Motion Shoulder Right Passive Testing Position Supine Flexion 90 Abduction 110 Right Active Testing Position Sitting Flexion 124 Abduction 132 External Rotation at 0 degrees Abduction 56 Internal Rotation Behind Back (text) T10 Left Active Testing Position Sitting Flexion 145 Abduction 165 External Rotation at 0 degrees Abduction 70 Internal Rotation Behind Back (text) T6 Shoulder ROM Limitations Shoulder ROM Limitations Soft Tissue Tightness,Muscle Weakness,Muscle Tone,Pain PT-OP-L Special Tests Start: 12/14/23 16:36 Freq: Status: Active Protocol: Document 12/14/23 14:30 DCW (Rec: 12/14/23 17:31 DCW [id number]) Special Tests Shoulder Special Tests Lift-Off Rotator Cuff Test Results Negative Drop Arm Rotator Cuff Test Results Negative Belly Press Test Results Negative Painful Arc Test Results Positive R Empty Can Test Results Positive R Speed's Biceps Test Results Negative Biceps Load II Test Test Results Negative Rebollar Francis Impingement Test Results Positive R PT-OP-M Strength Start: 12/14/23 16:36 Freq: Status: Active Protocol: Document 12/14/23 14:30 DCW (Rec: 12/14/23 17:31 DCW [id number]) Shoulder Strength Shoulder Manual Muscle Testing Right Flexion 3- Fair- Abduction (C5) 3- Fair- External Rotation 4 Good Internal Rotation 4 Good PT-OP-Q Treatments Start: 12/14/23 16:36 Freq: Status: Active Protocol: Document 12/14/23 14:30 DCW (Rec: 12/14/23 16:41 DCW [id number]) Therapeutic Exercises Supine Exercises Serratus Punch Supine Exercise Name Serratus Punch Side left Sitting Exercises Upper Trap Sitting Exercise Name Upper Trap stretch Side bilateral PT-OP-T Assessment and Plan Start: 12/14/23 16:36 Freq: Status: Active Protocol: Document 12/14/23 14:30 DCW (Rec: 12/14/23 17:42 DCW [id number]) Physical Therapy Assessment Rehab Potential Rehabilitation Potential Good Evaluation Complexity Number of Personal Factors/Comorbidities 3 or More Number of Body Systems Impaired 3 Clinical Presentation at Evaluation Unstable Impairments Impairments Activity Tolerance,Functional Activities,Functional Mobility ,Pain,ROM,Soft Tissue Mobility ,Strength,Tone Goals Three Impairment Right shoulder weakness (MMT R flexion and abduction both 3- /5) Correction Goal (LTG) Pt to increase right shoulder flexion and abduction MMT to at least 3+/5 in order to enable her to lift items into overhead cabinets at home. LTG Duration 02/13/24 Two Impairment Right shoulder flexion limited to 124? Correction Goal (LTG) Pt to increase right shoulder flexion to >145? in order to improve ability to don/doff her shirt without pain LTG Duration 02/13/24 One Impairment Pt does not have an appropriate home exercise program Short Term Goal (STG) Pt to be independent and compliant with an appropriate HEP STG Duration 01/13/24 Assessment Summary Assessment Pt presents with signs and symptoms better than expected with diagnosis and MRI showing complete rotator cuff and multiple partial rotator cuff tears. Pt struggles with lifting weights with an extended level arm or over head, but does fairly well functionally at this time. Pt' s biggest complaints at this time are upper trap pain/tone, as well as difficulty to don/ doff shirt and jacket. Pt will likely do well with skilled therapeutic intervention focusing on shoulder strengthening, AAROM/PROM, STM /joint mobility, and improved functional mobility Physical Therapy Plan Frequency and Duration Frequency of Treatment 2x/Week Plan of Care Start Date 12/14/23 Plan of Care End Date 02/13/24 Therapeutic Interventions Therapeutic Interventions Home Exercise Program,Joint Mobilizations,Manual Therapy, Neuromuscular Re-education, Patient/Caregiver Education, Self-Care/Home Management,Soft Tissue Mobilization,Taping, Therapeutic Activities, Therapeutic Exercises Modalities Cold Pack/Ice Massage,Electric Stimulation,Hot Packs Next Visit Focus/Plan Next Note Type Treatment Note Next Visit Plan Shoulder mobility, strengthening, stretching, increasing activity tolerance
--- NOTE | 2023-12-14 17:42 | PT.OPPOC ---
Physical, Occupational & Speech Therapy At Current Diagnoses Pain in right shoulder (12/14/23) Stiffness of right shoulder, not elsewhere classified (12/14/23) Complete rotator cuff tear or rupture of right shoulder, not specified as traumatic (12/14/23) Visit Care Team Role Provider Type Ariella Costa DO Family Provider Physician Primary Care Provider Specialty: Medical Address: [address] [place] [address], [address], [place], [address] Email: [email or web address] Hugh Ruffin MD Attending Provider Physician Referring Provider Specialty: Orthopedics Orthopedic Surgery Address: [address] [place] [address], [place], [address] Email: [email or web address] Plan Of Care PT-OP-T Assessment and Plan Start: 12/14/23 16:36 Freq: Status: Active Protocol: Document 12/14/23 14:30 DCW (Rec: 12/14/23 17:42 DCW [id number]) Physical Therapy Assessment Rehab Potential Rehabilitation Potential Good Evaluation Complexity Number of Personal Factors/Comorbidities 3 or More Number of Body Systems Impaired 3 Clinical Presentation at Evaluation Unstable Impairments Impairments Activity Tolerance,Functional Activities,Functional Mobility ,Pain,ROM,Soft Tissue Mobility ,Strength,Tone Goals Three Impairment Right shoulder weakness (MMT R flexion and abduction both 3- /5) Senior Care Goal (LTG) Pt to increase right shoulder flexion and abduction MMT to at least 3+/5 in order to enable her to lift items into overhead cabinets at home. LTG Duration 02/13/24 Two Impairment Right shoulder flexion limited to 124? Performance Specialist Goal (LTG) Pt to increase right shoulder flexion to >145? in order to improve ability to don/doff her shirt without pain LTG Duration 02/13/24 One Impairment Pt does not have an appropriate home exercise program Short Term Goal (STG) Pt to be independent and compliant with an appropriate HEP STG Duration 01/13/24 Assessment Summary Assessment Pt presents with signs and symptoms better than expected with diagnosis and MRI showing complete rotator cuff and multiple partial rotator cuff tears. Pt struggles with lifting weights with an extended level arm or over head, but does fairly well functionally at this time. Pt' s biggest complaints at this time are upper trap pain/tone, as well as difficulty to don/ doff shirt and jacket. Pt will likely do well with skilled therapeutic intervention focusing on shoulder strengthening, AAROM/PROM, STM /joint mobility, and improved functional mobility Physical Therapy Plan Frequency and Duration Frequency of Treatment 2x/Week Plan of Care Start Date 12/14/23 Plan of Care End Date 02/13/24 Therapeutic Interventions Therapeutic Interventions Home Exercise Program,Joint Mobilizations,Manual Therapy, Neuromuscular Re-education, Patient/Caregiver Education, Self-Care/Home Management,Soft Tissue Mobilization,Taping, Therapeutic Activities, Therapeutic Exercises Modalities Cold Pack/Ice Massage,Electric Stimulation,Hot Packs Next Visit Focus/Plan Next Note Type Treatment Note Next Visit Plan Shoulder mobility, strengthening, stretching, increasing activity tolerance Plan of Care Dates Plan of Care Start Date 12/14/23 Plan of Care End Date 02/13/24 Electronically Signed by: Horacio Espinoza, PT 12/14/23 2064 If you are in agreement with this Plan of Care, please return a signed and dated copy. I have reviewed this Plan of Care and certify that the skilled therapy services above are required to meet the patient?s needs. Physician Signature Date Printed Name and Credentials Clinical Instructor Signature Printed Name and Credentials
--- NOTE | 2023-12-16 15:16 | PT.OTN ---
Current Diagnoses Pain in right shoulder (12/16/23) Stiffness of right shoulder, not elsewhere classified (12/16/23) Complete rotator cuff tear or rupture of right shoulder, not specified as traumatic (12/16/23) Physical Therapy Treatment Note PT-OP-A Visit Information Start: 12/14/23 16:36 Freq: Status: Active Protocol: Document 12/16/23 14:30 DCW (Rec: 12/16/23 15:15 DCW [id number]) Out-Patient Physical Therapy Visit Information Visit Information Visit Type Treatment Note Visit Start Time 14:30 Visit Stop Time 15:15 Visit Number 2 Number of SKOOG OPERATOR Visits 0 Evaluation Information Evaluation Date 12/14/23 PT-OP-B Current Condition Start: 12/14/23 16:36 Freq: Status: Active Protocol: Document 12/14/23 14:30 DCW (Rec: 12/14/23 17:31 DCW [id number]) Current Condition History of Current Condition Onset Date Six month history Current Complaints Right shoulder pain, limitations with functional mobility History of Current Condition Pt is an 78 year old female presenting with a six month history of right shoulder pain . Pt was assessed by ortho and underwent an MRI, and was found to have a complete rotator cuff tear, as well as multiple partial tears. Pt denies any history of traumatic injury, unsure of the cause of her tears. Pt reports that she has fairly good ROM overall, but is limited mainly with lifting anything overhead, or reaching out with weight. Additionally , pt has difficulty when attempting to don/doff her shirt or jacket PT-OP-C Subjective Start: 12/14/23 16:36 Freq: Status: Active Protocol: Document 12/16/23 14:30 DCW (Rec: 12/16/23 15:15 DCW [id number]) OP-PT Subjective Patient Comments Patient Comments Just that first visit was really helpful. Pt brings in MRI results today, lists complete full-thickness supraspinatus tear, partial- thickness infraspionatus and subscapularis tears, and superior labral tear PT-OP-F Manual Assessment Start: 12/14/23 16:36 Freq: Status: Active Protocol: Document 12/14/23 14:30 DCW (Rec: 12/14/23 17:31 DCW [id number]) Manual Assessments Soft Tissue Assessment Soft Tissue Mobility Assessment Moderate tone right upper trap , right supraspinatus. Atrophy of right infraspinatus PT-OP-K Range of Motion Start: 12/14/23 16:36 Freq: Status: Active Protocol: Document 12/14/23 14:30 DCW (Rec: 12/14/23 17:31 DCW [id number]) Shoulder Goniometric Range of Motion Shoulder Right Passive Testing Position Supine Flexion 90 Abduction 110 Right Active Testing Position Sitting Flexion 124 Abduction 132 External Rotation at 0 degrees Abduction 56 Internal Rotation Behind Back (text) T10 Left Active Testing Position Sitting Flexion 145 Abduction 165 External Rotation at 0 degrees Abduction 70 Internal Rotation Behind Back (text) T6 Shoulder ROM Limitations Shoulder ROM Limitations Soft Tissue Tightness,Muscle Weakness,Muscle Tone,Pain PT-OP-L Special Tests Start: 12/14/23 16:36 Freq: Status: Active Protocol: Document 12/14/23 14:30 DCW (Rec: 12/14/23 17:31 DCW [id number]) Special Tests Shoulder Special Tests Lift-Off Rotator Cuff Test Results Negative Drop Arm Rotator Cuff Test Results Negative Belly Press Test Results Negative Painful Arc Test Results Positive R Empty Can Test Results Positive R Speed's Biceps Test Results Negative Biceps Load II Test Test Results Negative Rebollar Francis Impingement Test Results Positive R PT-OP-M Strength Start: 12/14/23 16:36 Freq: Status: Active Protocol: Document 12/14/23 14:30 DCW (Rec: 12/14/23 17:31 DCW [id number]) Shoulder Strength Shoulder Manual Muscle Testing Right Flexion 3- Fair- Abduction (C5) 3- Fair- External Rotation 4 Good Internal Rotation 4 Good PT-OP-Q Treatments Start: 12/14/23 16:36 Freq: Status: Active Protocol: Document 12/16/23 14:30 DCW (Rec: 12/16/23 15:15 DCW [id number]) Cardio Equipment Upper Body Ergometer (UBE) Duration (Minutes) 6 RPM 60 Seat Position 11 Height 2.5 Therapeutic Exercises Sitting Exercises Pulleys Sitting Exercise Name PROM - Pulleys Comments Flexion, Abduction Standing Exercises ER Standing Exercise Name Standing ER/IR Side bilateral Resistance Lv 3 Wall Slide Standing Exercise Name Wall Slide Side right Comments Flexion, Abduction Self-Care/Home Management Treatment Education Other Education Pt edu on impacted structures in shoulder, possible options going forward PT-OP-T Assessment and Plan Start: 12/14/23 16:36 Freq: Status: Active Protocol: Document 12/16/23 14:30 DCW (Rec: 12/16/23 15:15 DCW [id number]) Physical Therapy Assessment Impairments Impairments Activity Tolerance,Functional Activities,Functional Mobility ,Pain,ROM,Soft Tissue Mobility ,Strength,Tone Goals Three Impairment Right shoulder weakness (MMT R flexion and abduction both 3- /5) Custodial Goal (LTG) Pt to increase right shoulder flexion and abduction MMT to at least 3+/5 in order to enable her to lift items into overhead cabinets at home. LTG Duration 02/13/24 Two Impairment Right shoulder flexion limited to 124? Custodial Goal (LTG) Pt to increase right shoulder flexion to >145? in order to improve ability to don/doff her shirt without pain LTG Duration 02/13/24 One Impairment Pt does not have an appropriate home exercise program Short Term Goal (STG) Pt to be independent and compliant with an appropriate HEP STG Duration 01/13/24 Assessment Summary Assessment Good response to light strengthening today, continue to work on ROM and shoulder strengthening, focus on stabilization of shoulder and limiting pain. Physical Therapy Plan Frequency and Duration Frequency of Treatment 2x/Week Plan of Care Start Date 12/14/23 Plan of Care End Date 02/13/24 Therapeutic Interventions Therapeutic Interventions Home Exercise Program,Joint Mobilizations,Manual Therapy, Neuromuscular Re-education, Patient/Caregiver Education, Self-Care/Home Management,Soft Tissue Mobilization,Taping, Therapeutic Activities, Therapeutic Exercises Modalities Cold Pack/Ice Massage,Electric Stimulation,Hot Packs Next Visit Focus/Plan Next Note Type Treatment Note Next Visit Plan Shoulder mobility, strengthening, stretching, increasing activity tolerance
--- NOTE | 2023-12-21 15:18 | PT.OTN ---
Current Diagnoses Pain in right shoulder (12/21/23) Stiffness of right shoulder, not elsewhere classified (12/21/23) Complete rotator cuff tear or rupture of right shoulder, not specified as traumatic (12/21/23) Physical Therapy Treatment Note PT-OP-A Visit Information Start: 12/14/23 16:36 Freq: Status: Active Protocol: Document 12/21/23 14:32 DCW (Rec: 12/21/23 15:18 DCW [id number]) Out-Patient Physical Therapy Visit Information Visit Information Visit Type Treatment Note Visit Start Time 14:32 Visit Stop Time 15:15 Visit Number 3 Number of CUT OUT OPERATOR Visits 0 Evaluation Information Evaluation Date 12/14/23 PT-OP-B Current Condition Start: 12/14/23 16:36 Freq: Status: Active Protocol: Document 12/14/23 14:30 DCW (Rec: 12/14/23 17:31 DCW [id number]) Current Condition History of Current Condition Onset Date Six month history Current Complaints Right shoulder pain, limitations with functional mobility History of Current Condition Pt is an 78 year old female presenting with a six month history of right shoulder pain . Pt was assessed by ortho and underwent an MRI, and was found to have a complete rotator cuff tear, as well as multiple partial tears. Pt denies any history of traumatic injury, unsure of the cause of her tears. Pt reports that she has fairly good ROM overall, but is limited mainly with lifting anything overhead, or reaching out with weight. Additionally , pt has difficulty when attempting to don/doff her shirt or jacket PT-OP-C Subjective Start: 12/14/23 16:36 Freq: Status: Active Protocol: Document 12/21/23 14:32 DCW (Rec: 12/21/23 15:18 DCW [id number]) OP-PT Subjective Patient Comments Patient Comments Pt reports her soulder felt okay after her last visit, admits she is doing a lot of felting, which is a little hard on her shoulder. PT-OP-F Manual Assessment Start: 12/14/23 16:36 Freq: Status: Active Protocol: Document 12/14/23 14:30 DCW (Rec: 12/14/23 17:31 DCW [id number]) Manual Assessments Soft Tissue Assessment Soft Tissue Mobility Assessment Moderate tone right upper trap , right supraspinatus. Atrophy of right infraspinatus PT-OP-K Range of Motion Start: 12/14/23 16:36 Freq: Status: Active Protocol: Document 12/14/23 14:30 DCW (Rec: 12/14/23 17:31 DCW [id number]) Shoulder Goniometric Range of Motion Shoulder Right Passive Testing Position Supine Flexion 90 Abduction 110 Right Active Testing Position Sitting Flexion 124 Abduction 132 External Rotation at 0 degrees Abduction 56 Internal Rotation Behind Back (text) T10 Left Active Testing Position Sitting Flexion 145 Abduction 165 External Rotation at 0 degrees Abduction 70 Internal Rotation Behind Back (text) T6 Shoulder ROM Limitations Shoulder ROM Limitations Soft Tissue Tightness,Muscle Weakness,Muscle Tone,Pain PT-OP-L Special Tests Start: 12/14/23 16:36 Freq: Status: Active Protocol: Document 12/14/23 14:30 DCW (Rec: 12/14/23 17:31 DCW [id number]) Special Tests Shoulder Special Tests Lift-Off Rotator Cuff Test Results Negative Drop Arm Rotator Cuff Test Results Negative Belly Press Test Results Negative Painful Arc Test Results Positive R Empty Can Test Results Positive R Speed's Biceps Test Results Negative Biceps Load II Test Test Results Negative Rebollar Francis Impingement Test Results Positive R PT-OP-M Strength Start: 12/14/23 16:36 Freq: Status: Active Protocol: Document 12/14/23 14:30 DCW (Rec: 12/14/23 17:31 DCW [id number]) Shoulder Strength Shoulder Manual Muscle Testing Right Flexion 3- Fair- Abduction (C5) 3- Fair- External Rotation 4 Good Internal Rotation 4 Good PT-OP-Q Treatments Start: 12/14/23 16:36 Freq: Status: Active Protocol: Document 12/21/23 14:32 DCW (Rec: 12/21/23 15:18 DCW [id number]) Cardio Equipment Upper Body Ergometer (UBE) Duration (Minutes) 6 RPM 60 Seat Position 11 Height 3 Therapeutic Exercises Standing Exercises Abduction Standing Exercise Name Shoulder Abduction Side bilateral Resistance Lv 2 Flexion Standing Exercise Name Shoulder Flexion Side bilateral Resistance Lv 2 Rows Standing Exercise Name Rows Side bilateral Resistance Green Extension Standing Exercise Name Shoulder Extension Side bilateral Resistance Green Other Exercises Resisted Ambulation Other Exercise Name Resisted UE Side-stepping Resistance Green Manual Therapy Treatment Soft Tissue Mobilization Upper Trap Body Location R UT Mobilization Type Strumming,Sustained Pressure, Trigger Point Release Body Position Sitting PT-OP-T Assessment and Plan Start: 12/14/23 16:36 Freq: Status: Active Protocol: Document 12/21/23 14:32 DCW (Rec: 12/21/23 15:18 DCW [id number]) Physical Therapy Assessment Impairments Impairments Activity Tolerance,Functional Activities,Functional Mobility ,Pain,ROM,Soft Tissue Mobility ,Strength,Tone Goals Three Impairment Right shoulder weakness (MMT R flexion and abduction both 3- /5) Skilled Nursing Goal (LTG) Pt to increase right shoulder flexion and abduction MMT to at least 3+/5 in order to enable her to lift items into overhead cabinets at home. LTG Duration 02/13/24 Two Impairment Right shoulder flexion limited to 124? [facility] Goal (LTG) Pt to increase right shoulder flexion to >145? in order to improve ability to don/doff her shirt without pain LTG Duration 02/13/24 One Impairment Pt does not have an appropriate home exercise program Short Term Goal (STG) Pt to be independent and compliant with an appropriate HEP STG Duration 01/13/24 Assessment Summary Assessment Increased strengthening/ resistance today, good response. Pt showing good compliance with HEP, added flexion, abd, ext, and rows to HEP today. Continues to exhibit good ROM. Physical Therapy Plan Frequency and Duration Frequency of Treatment 2x/Week Plan of Care Start Date 12/14/23 Plan of Care End Date 02/13/24 Therapeutic Interventions Therapeutic Interventions Home Exercise Program,Joint Mobilizations,Manual Therapy, Neuromuscular Re-education, Patient/Caregiver Education, Self-Care/Home Management,Soft Tissue Mobilization,Taping, Therapeutic Activities, Therapeutic Exercises Modalities Cold Pack/Ice Massage,Electric Stimulation,Hot Packs Next Visit Focus/Plan Next Note Type Treatment Note Next Visit Plan Shoulder mobility, strengthening, stretching, increasing activity tolerance
--- NOTE | 2023-12-24 15:20 | PT.OTN ---
Current Diagnoses Pain in right shoulder (12/24/23) Stiffness of right shoulder, not elsewhere classified (12/24/23) Complete rotator cuff tear or rupture of right shoulder, not specified as traumatic (12/24/23) Physical Therapy Treatment Note PT-OP-A Visit Information Start: 12/14/23 16:36 Freq: Status: Active Protocol: Document 12/24/23 14:35 SP (Rec: 12/24/23 15:53 SP [id number]) Out-Patient Physical Therapy Visit Information Visit Information Visit Type Treatment Note Visit Start Time 14:35 Visit Stop Time 15:20 Visit Number 4 Number of MIGRANT LEADER Visits 1 Evaluation Information Evaluation Date 12/14/23 PT-OP-B Current Condition Start: 12/14/23 16:36 Freq: Status: Active Protocol: Document 12/14/23 14:30 DCW (Rec: 12/14/23 17:31 DCW [id number]) Current Condition History of Current Condition Onset Date Six month history Current Complaints Right shoulder pain, limitations with functional mobility History of Current Condition Pt is an 78 year old female presenting with a six month history of right shoulder pain . Pt was assessed by ortho and underwent an MRI, and was found to have a complete rotator cuff tear, as well as multiple partial tears. Pt denies any history of traumatic injury, unsure of the cause of her tears. Pt reports that she has fairly good ROM overall, but is limited mainly with lifting anything overhead, or reaching out with weight. Additionally , pt has difficulty when attempting to don/doff her shirt or jacket PT-OP-C Subjective Start: 12/14/23 16:36 Freq: Status: Active Protocol: Document 12/24/23 14:35 SP (Rec: 12/24/23 15:53 SP [id number]) OP-PT Subjective Patient Comments Patient Comments Pt reports sore after last tx. Compliant with HEP but abd against resistance pretty uncomfortable and can do had to stop. PT-OP-F Manual Assessment Start: 12/14/23 16:36 Freq: Status: Active Protocol: Document 12/14/23 14:30 DCW (Rec: 12/14/23 17:31 DCW [id number]) Manual Assessments Soft Tissue Assessment Soft Tissue Mobility Assessment Moderate tone right upper trap , right supraspinatus. Atrophy of right infraspinatus PT-OP-K Range of Motion Start: 12/14/23 16:36 Freq: Status: Active Protocol: Document 12/14/23 14:30 DCW (Rec: 12/14/23 17:31 DCW [id number]) Shoulder Goniometric Range of Motion Shoulder Right Passive Testing Position Supine Flexion 90 Abduction 110 Right Active Testing Position Sitting Flexion 124 Abduction 132 External Rotation at 0 degrees Abduction 56 Internal Rotation Behind Back (text) T10 Left Active Testing Position Sitting Flexion 145 Abduction 165 External Rotation at 0 degrees Abduction 70 Internal Rotation Behind Back (text) T6 Shoulder ROM Limitations Shoulder ROM Limitations Soft Tissue Tightness,Muscle Weakness,Muscle Tone,Pain PT-OP-L Special Tests Start: 12/14/23 16:36 Freq: Status: Active Protocol: Document 12/14/23 14:30 DCW (Rec: 12/14/23 17:31 DCW [id number]) Special Tests Shoulder Special Tests Lift-Off Rotator Cuff Test Results Negative Drop Arm Rotator Cuff Test Results Negative Belly Press Test Results Negative Painful Arc Test Results Positive R Empty Can Test Results Positive R Speed's Biceps Test Results Negative Biceps Load II Test Test Results Negative Rebollar Francis Impingement Test Results Positive R PT-OP-M Strength Start: 12/14/23 16:36 Freq: Status: Active Protocol: Document 12/14/23 14:30 DCW (Rec: 12/14/23 17:31 DCW [id number]) Shoulder Strength Shoulder Manual Muscle Testing Right Flexion 3- Fair- Abduction (C5) 3- Fair- External Rotation 4 Good Internal Rotation 4 Good PT-OP-Q Treatments Start: 12/14/23 16:36 Freq: Status: Active Protocol: Document 12/24/23 14:35 SP (Rec: 12/24/23 15:53 SP [id number]) Cardio Equipment Upper Body Ergometer (UBE) Duration (Minutes) 6 RPM 60 Seat Position 11 Height 3 Other 1 min f/b alternating Therapeutic Exercises Sidelying Exercises abduction Sidelying Exercise Name up to 80-90d eg Side right Reps/Minutes 5 reps Comments tactile cues for inferior scapular glide open book Sidelying Exercise Name added to HEP Side right Resistance hand on head Reps/Minutes 5 reps Comments tactile cues scapular ROM Standing Exercises Abduction Standing Exercise Name Hold 5/9 Rows Standing Exercise Name Rows Side bilateral Resistance Green Reps/Minutes 2x15 Comments tactile cues rhomboid and LT fac con and during Humeral ecc return Extension Standing Exercise Name Shoulder Extension Side bilateral Resistance Green Reps/Minutes 2x10 Comments tactile cues rhomboid and LT fac con and during Humeral ecc return Manual Therapy Treatment Soft Tissue Mobilization R scap Body Location UT, LS, pec major, lat Mobilization Type Rolling,Sustained Pressure, Other Body Position LSidelying Comments during scapulothoracic PROM Joint Mobilizations R scapulothoracic Jt Direction retraction/depresssion Grade II Body Position LSidelying Comments PROM, AAROM /c modified openbook and manual gentle STMs PT-OP-T Assessment and Plan Start: 12/14/23 16:36 Freq: Status: Active Protocol: Document 12/24/23 14:35 SP (Rec: 12/24/23 15:53 SP [id number]) Physical Therapy Assessment Goals Three Impairment Right shoulder weakness (MMT R flexion and abduction both 3- /5) [facility] Goal (LTG) Pt to increase right shoulder flexion and abduction MMT to at least 3+/5 in order to enable her to lift items into overhead cabinets at home. LTG Duration 02/13/24 Two Impairment Right shoulder flexion limited to 124? [facility] Goal (LTG) Pt to increase right shoulder flexion to >145? in order to improve ability to don/doff her shirt without pain LTG Duration 02/13/24 One Impairment Pt does not have an appropriate home exercise program Short Term Goal (STG) Pt to be independent and compliant with an appropriate HEP STG Duration 01/13/24 Assessment Summary Assessment Pt good response to manual and scapular ROM emphasis today with improved mobility and understanding mechanics with HEP better. Challenged with standing ABD, reports tolerated L sidelying AAROM> AROM up to 90deg low reps vs standing resistance last tx. Discussed is the direction has her tear and maybe modifying positioning and AROM at this time then can progress as able with agreed response. Physical Therapy Plan Frequency and Duration Frequency of Treatment 2x/Week Plan of Care Start Date 12/14/23 Plan of Care End Date 02/13/24 Therapeutic Interventions Therapeutic Interventions Home Exercise Program,Joint Mobilizations,Manual Therapy, Neuromuscular Re-education, Patient/Caregiver Education, Self-Care/Home Management,Soft Tissue Mobilization,Taping, Therapeutic Activities, Therapeutic Exercises Modalities Cold Pack/Ice Massage,Electric Stimulation,Hot Packs Next Visit Focus/Plan Next Note Type Treatment Note Next Visit Plan Check response manual, modified open book, side ABD AROM. POC: Shoulder mobility, strengthening, stretching, increasing activity tolerance
--- NOTE | 2023-12-28 15:15 | PT.OTN ---
Current Diagnoses Pain in right shoulder (12/28/23) Stiffness of right shoulder, not elsewhere classified (12/28/23) Complete rotator cuff tear or rupture of right shoulder, not specified as traumatic (12/28/23) Physical Therapy Treatment Note PT-OP-A Visit Information Start: 12/14/23 16:36 Freq: Status: Active Protocol: Document 12/28/23 14:30 DCW (Rec: 12/28/23 15:15 DCW [id number]) Out-Patient Physical Therapy Visit Information Visit Information Visit Type Treatment Note Visit Start Time 14:30 Visit Stop Time 15:15 Visit Number 5 Number of SENIOR ACCOUNT MANAGER Visits 0 Evaluation Information Evaluation Date 12/14/23 PT-OP-B Current Condition Start: 12/14/23 16:36 Freq: Status: Active Protocol: Document 12/14/23 14:30 DCW (Rec: 12/14/23 17:31 DCW [id number]) Current Condition History of Current Condition Onset Date Six month history Current Complaints Right shoulder pain, limitations with functional mobility History of Current Condition Pt is an 78 year old female presenting with a six month history of right shoulder pain . Pt was assessed by ortho and underwent an MRI, and was found to have a complete rotator cuff tear, as well as multiple partial tears. Pt denies any history of traumatic injury, unsure of the cause of her tears. Pt reports that she has fairly good ROM overall, but is limited mainly with lifting anything overhead, or reaching out with weight. Additionally , pt has difficulty when attempting to don/doff her shirt or jacket PT-OP-C Subjective Start: 12/14/23 16:36 Freq: Status: Active Protocol: Document 12/28/23 14:30 DCW (Rec: 12/28/23 15:15 DCW [id number]) OP-PT Subjective Patient Comments Patient Comments Well...it's okay. PT-OP-F Manual Assessment Start: 12/14/23 16:36 Freq: Status: Active Protocol: Document 12/14/23 14:30 DCW (Rec: 12/14/23 17:31 DCW [id number]) Manual Assessments Soft Tissue Assessment Soft Tissue Mobility Assessment Moderate tone right upper trap , right supraspinatus. Atrophy of right infraspinatus PT-OP-K Range of Motion Start: 12/14/23 16:36 Freq: Status: Active Protocol: Document 12/14/23 14:30 DCW (Rec: 12/14/23 17:31 DCW [id number]) Shoulder Goniometric Range of Motion Shoulder Right Passive Testing Position Supine Flexion 90 Abduction 110 Right Active Testing Position Sitting Flexion 124 Abduction 132 External Rotation at 0 degrees Abduction 56 Internal Rotation Behind Back (text) T10 Left Active Testing Position Sitting Flexion 145 Abduction 165 External Rotation at 0 degrees Abduction 70 Internal Rotation Behind Back (text) T6 Shoulder ROM Limitations Shoulder ROM Limitations Soft Tissue Tightness,Muscle Weakness,Muscle Tone,Pain PT-OP-L Special Tests Start: 12/14/23 16:36 Freq: Status: Active Protocol: Document 12/14/23 14:30 DCW (Rec: 12/14/23 17:31 DCW [id number]) Special Tests Shoulder Special Tests Lift-Off Rotator Cuff Test Results Negative Drop Arm Rotator Cuff Test Results Negative Belly Press Test Results Negative Painful Arc Test Results Positive R Empty Can Test Results Positive R Speed's Biceps Test Results Negative Biceps Load II Test Test Results Negative Rebollar Francis Impingement Test Results Positive R PT-OP-M Strength Start: 12/14/23 16:36 Freq: Status: Active Protocol: Document 12/14/23 14:30 DCW (Rec: 12/14/23 17:31 DCW [id number]) Shoulder Strength Shoulder Manual Muscle Testing Right Flexion 3- Fair- Abduction (C5) 3- Fair- External Rotation 4 Good Internal Rotation 4 Good PT-OP-Q Treatments Start: 12/14/23 16:36 Freq: Status: Active Protocol: Document 12/28/23 14:30 DCW (Rec: 12/28/23 15:15 DCW [id number]) Cardio Equipment Upper Body Ergometer (UBE) Duration (Minutes) 6 RPM 60 Seat Position 11 Height 3 Therapeutic Exercises Supine Exercises Flexion Supine Exercise Name AAROM /c PVC Side bilateral Sidelying Exercises abduction Sidelying Exercise Name up to 110? Side right Reps/Minutes 5 reps Comments tactile cues for inferior scapular glide Standing Exercises Pec Stretch Standing Exercise Name Doorway Stretch Side bilateral IR Standing Exercise Name Dave IR stretch Side right Manual Therapy Treatment Soft Tissue Mobilization R scap Body Location UT, LS, pec major, lat Mobilization Type Rolling,Sustained Pressure, Other Body Position Supine Comments during scapulothoracic PROM PT-OP-T Assessment and Plan Start: 12/14/23 16:36 Freq: Status: Active Protocol: Document 12/28/23 14:30 DCW (Rec: 12/28/23 15:15 DCW [id number]) Physical Therapy Assessment Impairments Impairments Activity Tolerance,Functional Activities,Functional Mobility ,Pain,ROM,Soft Tissue Mobility ,Strength,Tone Goals Three Impairment Right shoulder weakness (MMT R flexion and abduction both 3- /5) Care Home Goal (LTG) Pt to increase right shoulder flexion and abduction MMT to at least 3+/5 in order to enable her to lift items into overhead cabinets at home. LTG Duration 02/13/24 Two Impairment Right shoulder flexion limited to 124? Bid Analyst Goal (LTG) Pt to increase right shoulder flexion to >145? in order to improve ability to don/doff her shirt without pain LTG Duration 02/13/24 One Impairment Pt does not have an appropriate home exercise program Short Term Goal (STG) Pt to be independent and compliant with an appropriate HEP STG Duration 01/13/24 Assessment Summary Assessment good tolerance to activity today, doing well with limiting pain with ROM, maintaining pain-free movement . Pt considering following up with referring physician regarding potential surgical intervention. Physical Therapy Plan Frequency and Duration Frequency of Treatment 2x/Week Plan of Care Start Date 12/14/23 Plan of Care End Date 02/13/24 Therapeutic Interventions Therapeutic Interventions Home Exercise Program,Joint Mobilizations,Manual Therapy, Neuromuscular Re-education, Patient/Caregiver Education, Self-Care/Home Management,Soft Tissue Mobilization,Taping, Therapeutic Activities, Therapeutic Exercises Modalities Cold Pack/Ice Massage,Electric Stimulation,Hot Packs Next Visit Focus/Plan Next Note Type Treatment Note Next Visit Plan Check response manual, modified open book, side ABD AROM. POC: Shoulder mobility, strengthening, stretching, increasing activity tolerance
--- NOTE | 2024-01-20 17:32 | PT.OTN ---
Current Diagnoses Pain in right shoulder (01/20/24) Stiffness of right shoulder, not elsewhere classified (01/20/24) Complete rotator cuff tear or rupture of right shoulder, not specified as traumatic (01/20/24) Physical Therapy Treatment Note PT-OP-A Visit Information Start: 12/14/23 16:36 Freq: Status: Active Protocol: Document 01/20/24 16:45 DCW (Rec: 01/20/24 17:32 DCW [id number]) Out-Patient Physical Therapy Visit Information Visit Information Visit Type Treatment Note Visit Start Time 16:45 Visit Stop Time 17:30 Visit Number 6 Number of RN ORTHOPAEDICS Visits 0 Evaluation Information Evaluation Date 12/14/23 PT-OP-B Current Condition Start: 12/14/23 16:36 Freq: Status: Active Protocol: Document 12/14/23 14:30 DCW (Rec: 12/14/23 17:31 DCW [id number]) Current Condition History of Current Condition Onset Date Six month history Current Complaints Right shoulder pain, limitations with functional mobility History of Current Condition Pt is an 78 year old female presenting with a six month history of right shoulder pain . Pt was assessed by ortho and underwent an MRI, and was found to have a complete rotator cuff tear, as well as multiple partial tears. Pt denies any history of traumatic injury, unsure of the cause of her tears. Pt reports that she has fairly good ROM overall, but is limited mainly with lifting anything overhead, or reaching out with weight. Additionally , pt has difficulty when attempting to don/doff her shirt or jacket PT-OP-C Subjective Start: 12/14/23 16:36 Freq: Status: Active Protocol: Document 01/20/24 16:45 DCW (Rec: 01/20/24 17:32 DCW [id number]) OP-PT Subjective Patient Comments Patient Comments Pt recovering from pneumonia, would prefer to take it a little easy today. Does admit her shoulder has been feeling quite a bit better with being able to rest it during her illness. PT-OP-F Manual Assessment Start: 12/14/23 16:36 Freq: Status: Active Protocol: Document 12/14/23 14:30 DCW (Rec: 12/14/23 17:31 DCW [id number]) Manual Assessments Soft Tissue Assessment Soft Tissue Mobility Assessment Moderate tone right upper trap , right supraspinatus. Atrophy of right infraspinatus PT-OP-K Range of Motion Start: 12/14/23 16:36 Freq: Status: Active Protocol: Document 12/14/23 14:30 DCW (Rec: 12/14/23 17:31 DCW [id number]) Shoulder Goniometric Range of Motion Shoulder Right Passive Testing Position Supine Flexion 90 Abduction 110 Right Active Testing Position Sitting Flexion 124 Abduction 132 External Rotation at 0 degrees Abduction 56 Internal Rotation Behind Back (text) T10 Left Active Testing Position Sitting Flexion 145 Abduction 165 External Rotation at 0 degrees Abduction 70 Internal Rotation Behind Back (text) T6 Shoulder ROM Limitations Shoulder ROM Limitations Soft Tissue Tightness,Muscle Weakness,Muscle Tone,Pain PT-OP-L Special Tests Start: 12/14/23 16:36 Freq: Status: Active Protocol: Document 12/14/23 14:30 DCW (Rec: 12/14/23 17:31 DCW [id number]) Special Tests Shoulder Special Tests Lift-Off Rotator Cuff Test Results Negative Drop Arm Rotator Cuff Test Results Negative Belly Press Test Results Negative Painful Arc Test Results Positive R Empty Can Test Results Positive R Speed's Biceps Test Results Negative Biceps Load II Test Test Results Negative Rebollar Francis Impingement Test Results Positive R PT-OP-M Strength Start: 12/14/23 16:36 Freq: Status: Active Protocol: Document 12/14/23 14:30 DCW (Rec: 12/14/23 17:31 DCW [id number]) Shoulder Strength Shoulder Manual Muscle Testing Right Flexion 3- Fair- Abduction (C5) 3- Fair- External Rotation 4 Good Internal Rotation 4 Good PT-OP-Q Treatments Start: 12/14/23 16:36 Freq: Status: Active Protocol: Document 01/20/24 16:45 DCW (Rec: 01/20/24 17:32 DCW [id number]) Cardio Equipment Upper Body Ergometer (UBE) Duration (Minutes) 6 RPM 60 Seat Position 11 Height 3 Therapeutic Exercises Standing Exercises Abduction Standing Exercise Name Abduction Side bilateral Resistance Lv 2 Flexion Standing Exercise Name Shoulder Flexion Side bilateral Resistance Lv 2 Rows Standing Exercise Name Rows Side bilateral Resistance Green Extension Standing Exercise Name Shoulder Extension Side bilateral Resistance Green Manual Therapy Treatment Soft Tissue Mobilization R scap Body Location UT, LS, pec major, lat Mobilization Type Rolling,Sustained Pressure, Other Body Position Supine Comments during scapulothoracic PROM Joint Mobilizations R scapulothoracic Jt Direction retraction/depresssion Grade II Body Position LSidelying Comments PROM, AAROM /c modified openbook and manual gentle STMs PT-OP-T Assessment and Plan Start: 12/14/23 16:36 Freq: Status: Active Protocol: Document 01/20/24 16:45 DCW (Rec: 01/20/24 17:32 DCW [id number]) Physical Therapy Assessment Impairments Impairments Activity Tolerance,Functional Activities,Functional Mobility ,Pain,ROM,Soft Tissue Mobility ,Strength,Tone Goals Three Impairment Right shoulder weakness (MMT R flexion and abduction both 3- /5) Administrative Office Specialist Goal (LTG) Pt to increase right shoulder flexion and abduction MMT to at least 3+/5 in order to enable her to lift items into overhead cabinets at home. LTG Duration 02/13/24 Two Impairment Right shoulder flexion limited to 124? Longterm Goal (LTG) Pt to increase right shoulder flexion to >145? in order to improve ability to don/doff her shirt without pain LTG Duration 02/13/24 One Impairment Pt does not have an appropriate home exercise program Short Term Goal (STG) Pt to be independent and compliant with an appropriate HEP STG Duration 01/13/24 Assessment Summary Assessment Pt showing some improvement with both active ROM and tone management after her recent illness allowed her to rest her arms for the past few weeks. Continue to work through pain-free motion and strengthening as tolerated. Physical Therapy Plan Frequency and Duration Frequency of Treatment 2x/Week Plan of Care Start Date 12/14/23 Plan of Care End Date 02/13/24 Therapeutic Interventions Therapeutic Interventions Home Exercise Program,Joint Mobilizations,Manual Therapy, Neuromuscular Re-education, Patient/Caregiver Education, Self-Care/Home Management,Soft Tissue Mobilization,Taping, Therapeutic Activities, Therapeutic Exercises Modalities Cold Pack/Ice Massage,Electric Stimulation,Hot Packs Next Visit Focus/Plan Next Note Type Treatment Note Next Visit Plan POC: Shoulder mobility, strengthening, stretching, increasing activity tolerance
--- NOTE | 2024-01-26 16:55 | PT.OTN ---
Current Diagnoses Pain in right shoulder (01/26/24) Stiffness of right shoulder, not elsewhere classified (01/26/24) Complete rotator cuff tear or rupture of right shoulder, not specified as traumatic (01/26/24) Physical Therapy Treatment Note PT-OP-A Visit Information Start: 12/14/23 16:36 Freq: Status: Active Protocol: Document 01/26/24 15:33 NBM (Rec: 01/26/24 16:55 [facility] [id number]) Out-Patient Physical Therapy Visit Information Visit Information Visit Type Treatment Note Visit Start Time 15:25 Visit Stop Time 16:15 Visit Number 7 Number of CHILD ADOLESCENT CARE Visits 1 Evaluation Information Evaluation Date 12/14/23 PT-OP-B Current Condition Start: 12/14/23 16:36 Freq: Status: Active Protocol: Document 12/14/23 14:30 DCW (Rec: 12/14/23 17:31 DCW [id number]) Current Condition History of Current Condition Onset Date Six month history Current Complaints Right shoulder pain, limitations with functional mobility History of Current Condition Pt is an 78 year old female presenting with a six month history of right shoulder pain . Pt was assessed by ortho and underwent an MRI, and was found to have a complete rotator cuff tear, as well as multiple partial tears. Pt denies any history of traumatic injury, unsure of the cause of her tears. Pt reports that she has fairly good ROM overall, but is limited mainly with lifting anything overhead, or reaching out with weight. Additionally , pt has difficulty when attempting to don/doff her shirt or jacket PT-OP-C Subjective Start: 12/14/23 16:36 Freq: Status: Active Protocol: Document 01/26/24 15:33 NBM (Rec: 01/26/24 16:55 [facility] [id number]) OP-PT Subjective Patient Comments Patient Comments Senia reports her R shoulder felt much better after having to rest due to her pnuemonia. The stretching ex's are very helpful. She feels it when she leaves PT. She did some weeding and is now avoiding some stuff she didn't before. She wishes they looked at L shoulder too because it's now starting to hurt. Pt reports ex bringing arm to side is hardest. PT-OP-F Manual Assessment Start: 12/14/23 16:36 Freq: Status: Active Protocol: Document 12/14/23 14:30 DCW (Rec: 12/14/23 17:31 DCW [id number]) Manual Assessments Soft Tissue Assessment Soft Tissue Mobility Assessment Moderate tone right upper trap , right supraspinatus. Atrophy of right infraspinatus PT-OP-K Range of Motion Start: 12/14/23 16:36 Freq: Status: Active Protocol: Document 12/14/23 14:30 DCW (Rec: 12/14/23 17:31 DCW [id number]) Shoulder Goniometric Range of Motion Shoulder Right Passive Testing Position Supine Flexion 90 Abduction 110 Right Active Testing Position Sitting Flexion 124 Abduction 132 External Rotation at 0 degrees Abduction 56 Internal Rotation Behind Back (text) T10 Left Active Testing Position Sitting Flexion 145 Abduction 165 External Rotation at 0 degrees Abduction 70 Internal Rotation Behind Back (text) T6 Shoulder ROM Limitations Shoulder ROM Limitations Soft Tissue Tightness,Muscle Weakness,Muscle Tone,Pain PT-OP-L Special Tests Start: 12/14/23 16:36 Freq: Status: Active Protocol: Document 12/14/23 14:30 DCW (Rec: 12/14/23 17:31 DCW [id number]) Special Tests Shoulder Special Tests Lift-Off Rotator Cuff Test Results Negative Drop Arm Rotator Cuff Test Results Negative Belly Press Test Results Negative Painful Arc Test Results Positive R Empty Can Test Results Positive R Speed's Biceps Test Results Negative Biceps Load II Test Test Results Negative Rebollar Francis Impingement Test Results Positive R PT-OP-M Strength Start: 12/14/23 16:36 Freq: Status: Active Protocol: Document 12/14/23 14:30 DCW (Rec: 12/14/23 17:31 DCW [id number]) Shoulder Strength Shoulder Manual Muscle Testing Right Flexion 3- Fair- Abduction (C5) 3- Fair- External Rotation 4 Good Internal Rotation 4 Good PT-OP-Q Treatments Start: 12/14/23 16:36 Freq: Status: Active Protocol: Document 01/26/24 15:33 NBM (Rec: 01/26/24 16:55 NBM [id number]) Therapeutic Exercises Standing Exercises Abduction Standing Exercise Name Abduction Side bilateral Resistance Lv 2 Reps/Minutes 2x10 Comments cues for posture, scap setting , take up TB slack to start, breath Flexion Standing Exercise Name Shoulder Flexion Side bilateral Resistance Lv 2 Reps/Minutes 2x10 Rows Standing Exercise Name Rows Side bilateral Resistance [place] Tb>GTB Reps/Minutes OTB 2x10/ GTB x10 (some R lucille pain noted) Comments tactile cue 2nd set to prevent R lucille ext d/t pt c/o pain 1st set Extension Standing Exercise Name Shoulder Extension Side bilateral Resistance Green Reps/Minutes 2x8 Comments cues UT overactivation w/ fatigue Manual Therapy Treatment Soft Tissue Mobilization R scap Body Location UT, LS, pec major Mobilization Type Rolling,Sustained Pressure, Other Body Position Hooklying Comments cued initially for scapular setting. Joint Mobilizations GH jt Direction posterior Grade II Body Position Hooklying Comments gentle, positive feedback response initial cueing for scapular setting. Self-Care/Home Management Treatment Education Patient Education Home Exercise Program,Joint Protection,Pain Management, Posture Activities Self-Care/Home Management Activities Gardening body mechanics for weeding, digging and reaching in quadruped, half-kneel, short kneel, and stool - 6 min . Pt edu in use of ice for pain- management after gardening and at bedtime. She's waking up with shoulder pain sleeping on back - discussion to use one down pillow instead of two to improve cervical alignment. PT-OP-T Assessment and Plan Start: 12/14/23 16:36 Freq: Status: Active Protocol: Document 01/26/24 15:33 [facility] (Rec: 01/26/24 16:55 [facility] [id number]) Physical Therapy Assessment Goals Three Impairment Right shoulder weakness (MMT R flexion and abduction both 3- /5) Mcc Goal (LTG) Pt to increase right shoulder flexion and abduction MMT to at least 3+/5 in order to enable her to lift items into overhead cabinets at home. LTG Duration 02/13/24 Two Impairment Right shoulder flexion limited to 124? Mcc Goal (LTG) Pt to increase right shoulder flexion to >145? in order to improve ability to don/doff her shirt without pain LTG Duration 02/13/24 One Impairment Pt does not have an appropriate home exercise program Short Term Goal (STG) Pt to be independent and compliant with an appropriate HEP STG Duration 01/13/24 Assessment Summary Assessment Senia requires cues for posture, scapular setting, breath, and to take up theraband slack to start with resisted shoulder ex's as part of HEP. She also requires cues for UT overactivation with fatigue and shoulder row resistance modified from Lvl 3 green theraband to Lvl 2 orange theraband to allow for 2x10 reps without UT overactivation. She demos improved self-awareness throughout session with cueing and repetition and is able to tolerate more reps than when performing at home. She presents with 1/10 R shoulder pain which increases during resisted shoulder rows but resolves with orange tb and tactile cues for no shoulder hyperextension; increased R shoulder discomfort with green theraband so pt encouraged to use Lvl 2 orange for HEP for rows. Manual therapy to R shoulder with focus on R UT and LS, and pt's R lucille pain returns to 1/10 by end of session. Edu for ice for pain management and pt instructed in body mechanics with gardening/weeding. She's waking up with shoulder pain sleeping on back - discussion to use one down pillow instead of two to improve cervical alignment. Physical Therapy Plan Frequency and Duration Frequency of Treatment 2x/Week Plan of Care Start Date 12/14/23 Plan of Care End Date 02/13/24 Therapeutic Interventions Therapeutic Interventions Home Exercise Program,Joint Mobilizations,Manual Therapy, Neuromuscular Re-education, Patient/Caregiver Education, Self-Care/Home Management,Soft Tissue Mobilization,Taping, Therapeutic Activities, Therapeutic Exercises Modalities Cold Pack/Ice Massage,Electric Stimulation,Hot Packs Next Visit Focus/Plan Next Note Type Treatment Note Next Visit Plan POC: Shoulder mobility, strengthening, stretching, increasing activity tolerance
--- NOTE | 2024-02-02 17:34 | PT.OTN ---
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 Pt was assessed by ortho and underwent an MRI, and was found to have a complete rotator cuff tear, as well as multiple partial tears. Pt denies any history of traumatic injury, unsure of the cause of her tears. Pt reports that she has fairly good ROM overall, but is limited mainly with lifting anything overhead, or reaching out with weight. Additionally , pt has difficulty when attempting to don/doff her shirt or jacket PT-OP-C Subjective Start: 12/14/23 16:36 Freq: Status: Active Protocol: Document 02/02/24 16:45 DCW (Rec: 02/02/24 17:34 DCW [id number]) OP-PT Subjective Patient Comments Patient Comments Pt reports she saw Dr Ruffin last week, still unsure if she wants to go through with surgery. PT-OP-F Manual Assessment Start: 12/14/23 16:36 Freq: Status: Active Protocol: Document 12/14/23 14:30 DCW (Rec: 12/14/23 17:31 DCW [id number]) Manual Assessments Soft Tissue Assessment Soft Tissue Mobility Assessment Moderate tone right upper trap , right supraspinatus. Atrophy of right infraspinatus PT-OP-K Range of Motion Start: 12/14/23 16:36 Freq: Status: Active Protocol: Document 12/14/23 14:30 DCW (Rec: 12/14/23 17:31 DCW [id number]) Shoulder Goniometric Range of Motion Shoulder Right Passive Testing Position Supine Flexion 90 Abduction 110 Right Active Testing Position Sitting Flexion 124 Abduction 132 External Rotation at 0 degrees Abduction 56 Internal Rotation Behind Back (text) T10 Left Active Testing Position Sitting Flexion 145 Abduction 165 External Rotation at 0 degrees Abduction 70 Internal Rotation Behind Back (text) T6 Shoulder ROM Limitations Shoulder ROM Limitations Soft Tissue Tightness,Muscle Weakness,Muscle Tone,Pain PT-OP-L Special Tests Start: 12/14/23 16:36 Freq: Status: Active Protocol: Document 12/14/23 14:30 DCW (Rec: 12/14/23 17:31 DCW [id number]) Special Tests Shoulder Special Tests Lift-Off Rotator Cuff Test Results Negative Drop Arm Rotator Cuff Test Results Negative Belly Press Test Results Negative Painful Arc Test Results Positive R Empty Can Test Results Positive R Speed's Biceps Test Results Negative Biceps Load II Test Test Results Negative Rebollar Francis Impingement Test Results Positive R PT-OP-M Strength Start: 12/14/23 16:36 Freq: Status: Active Protocol: Document 12/14/23 14:30 DCW (Rec: 12/14/23 17:31 DCW [id number]) Shoulder Strength Shoulder Manual Muscle Testing Right Flexion 3- Fair- Abduction (C5) 3- Fair- External Rotation 4 Good Internal Rotation 4 Good PT-OP-Q Treatments Start: 12/14/23 16:36 Freq: Status: Active Protocol: Document 02/02/24 16:45 DCW (Rec: 02/02/24 17:34 DCW [id number]) Therapeutic Exercises Sitting Exercises ER/IR Sitting Exercise Name ER/IR in 90/90 Resistance Red 3.3 lb ball Standing Exercises PNF Standing Exercise Name D1/D2 UE flexion Side right Resistance 2# Comments Pain-free ROM Abduction Standing Exercise Name Abduction Side bilateral Resistance 2# Other Exercises Ball circles Other Exercise Name Ball circles on wall Side right Comments CW.CCW flexion/abd Resisted Ambulation Other Exercise Name Resisted UE Side-stepping Resistance Green Manual Therapy Treatment Soft Tissue Mobilization R scap Body Location UT, LS, pec major, lat Mobilization Type Rolling,Sustained Pressure, Other Body Position Sitting Comments during scapulothoracic PROM Upper Trap Body Location R UT Mobilization Type Strumming,Sustained Pressure, Trigger Point Release Body Position Sitting Joint Mobilizations GH jt Direction posterior Grade II Body Position Sitting Comments gentle, positive feedback response initial cueing for scapular setting. PT-OP-T Assessment and Plan Start: 12/14/23 16:36 Freq: Status: Active Protocol: Document 02/02/24 16:45 DCW (Rec: 02/02/24 17:34 DCW [id number]) Physical Therapy Assessment Impairments Impairments Activity Tolerance,Functional Activities,Functional Mobility ,Pain,ROM,Soft Tissue Mobility ,Strength,Tone Goals Three Impairment Right shoulder weakness (MMT R flexion and abduction both 3- /5) Ski Binding Fitter And Repairer Goal (LTG) Pt to increase right shoulder flexion and abduction MMT to at least 3+/5 in order to enable her to lift items into overhead cabinets at home. LTG Duration 02/13/24 Two Impairment Right shoulder flexion limited to 124? Ski Binding Fitter And Repairer Goal (LTG) Pt to increase right shoulder flexion to >145? in order to improve ability to don/doff her shirt without pain LTG Duration 02/13/24 One Impairment Pt does not have an appropriate home exercise program Short Term Goal (STG) Pt to be independent and compliant with an appropriate HEP STG Duration 01/13/24 Assessment Summary Assessment Pt still trying to determine if she is going to go through with surgery or not, but feels like she has been making decent progress. Tolerating HEP well, returning to walking activities after pneumonia. Physical Therapy Plan Frequency and Duration Frequency of Treatment 2x/Week Plan of Care Start Date 12/14/23 Plan of Care End Date 02/13/24 Therapeutic Interventions Therapeutic Interventions Home Exercise Program,Joint Mobilizations,Manual Therapy, Neuromuscular Re-education, Patient/Caregiver Education, Self-Care/Home Management,Soft Tissue Mobilization,Taping, Therapeutic Activities, Therapeutic Exercises Modalities Cold Pack/Ice Massage,Electric Stimulation,Hot Packs Next Visit Focus/Plan Next Note Type Treatment Note Next Visit Plan POC: Shoulder mobility, strengthening, stretching, increasing activity tolerance
--- NOTE | 2024-02-04 15:15 | PT.OTN ---
Current Diagnoses Pain in right shoulder (02/04/24) Stiffness of right shoulder, not elsewhere classified (02/04/24) Complete rotator cuff tear or rupture of right shoulder, not specified as traumatic (02/04/24) Physical Therapy Treatment Note PT-OP-A Visit Information Start: 12/14/23 16:36 Freq: Status: Active Protocol: Document 02/04/24 14:30 DCW (Rec: 02/04/24 15:15 DCW [id number]) Out-Patient Physical Therapy Visit Information Visit Information Visit Type Treatment Note Visit Start Time 14:30 Visit Stop Time 15:15 Visit Number 9 Number of LABORATORY MECHANICAL TECHNICIAN Visits 0 Evaluation Information Evaluation Date 12/14/23 PT-OP-B Current Condition Start: 12/14/23 16:36 Freq: Status: Active Protocol: Document 12/14/23 14:30 DCW (Rec: 12/14/23 17:31 DCW [id number]) Current Condition History of Current Condition Onset Date Six month history Current Complaints Right shoulder pain, limitations with functional mobility History of Current Condition Pt is an 78 year old female presenting with a six month history of right shoulder pain . Pt was assessed by ortho and underwent an MRI, and was found to have a complete rotator cuff tear, as well as multiple partial tears. Pt denies any history of traumatic injury, unsure of the cause of her tears. Pt reports that she has fairly good ROM overall, but is limited mainly with lifting anything overhead, or reaching out with weight. Additionally , pt has difficulty when attempting to don/doff her shirt or jacket PT-OP-C Subjective Start: 12/14/23 16:36 Freq: Status: Active Protocol: Document 02/04/24 14:30 DCW (Rec: 02/04/24 15:15 DCW [id number]) OP-PT Subjective Patient Comments Patient Comments Pt did a lot of weeding yesterday, and woke up with a sore shoulder, but notes her arm PT-OP-F Manual Assessment Start: 12/14/23 16:36 Freq: Status: Active Protocol: Document 12/14/23 14:30 DCW (Rec: 12/14/23 17:31 DCW [id number]) Manual Assessments Soft Tissue Assessment Soft Tissue Mobility Assessment Moderate tone right upper trap , right supraspinatus. Atrophy of right infraspinatus PT-OP-K Range of Motion Start: 12/14/23 16:36 Freq: Status: Active Protocol: Document 12/14/23 14:30 DCW (Rec: 12/14/23 17:31 DCW [id number]) Shoulder Goniometric Range of Motion Shoulder Right Passive Testing Position Supine Flexion 90 Abduction 110 Right Active Testing Position Sitting Flexion 124 Abduction 132 External Rotation at 0 degrees Abduction 56 Internal Rotation Behind Back (text) T10 Left Active Testing Position Sitting Flexion 145 Abduction 165 External Rotation at 0 degrees Abduction 70 Internal Rotation Behind Back (text) T6 Shoulder ROM Limitations Shoulder ROM Limitations Soft Tissue Tightness,Muscle Weakness,Muscle Tone,Pain PT-OP-L Special Tests Start: 12/14/23 16:36 Freq: Status: Active Protocol: Document 12/14/23 14:30 DCW (Rec: 12/14/23 17:31 DCW [id number]) Special Tests Shoulder Special Tests Lift-Off Rotator Cuff Test Results Negative Drop Arm Rotator Cuff Test Results Negative Belly Press Test Results Negative Painful Arc Test Results Positive R Empty Can Test Results Positive R Speed's Biceps Test Results Negative Biceps Load II Test Test Results Negative Rebollar Francis Impingement Test Results Positive R PT-OP-M Strength Start: 12/14/23 16:36 Freq: Status: Active Protocol: Document 12/14/23 14:30 DCW (Rec: 12/14/23 17:31 DCW [id number]) Shoulder Strength Shoulder Manual Muscle Testing Right Flexion 3- Fair- Abduction (C5) 3- Fair- External Rotation 4 Good Internal Rotation 4 Good PT-OP-Q Treatments Start: 12/14/23 16:36 Freq: Status: Active Protocol: Document 02/04/24 14:30 DCW (Rec: 02/04/24 15:15 DCW [id number]) Cardio Equipment Upper Body Ergometer (UBE) Duration (Minutes) 6 RPM 60 Seat Position 11 Height 3 Therapeutic Exercises Supine Exercises Flexion Supine Exercise Name AAROM /c PVC Side bilateral Standing Exercises Rows Standing Exercise Name Rows Side bilateral Resistance 10# Body Solid Reps/Minutes x10 Extension Standing Exercise Name Shoulder Extension Side bilateral Resistance 10# Body Solid Reps/Minutes x10 Manual Therapy Treatment Soft Tissue Mobilization R scap Body Location UT, LS, pec major, lat Mobilization Type Rolling,Sustained Pressure, Other Body Position Sitting Comments during scapulothoracic PROM Upper Trap Body Location R UT Mobilization Type Strumming,Sustained Pressure, Trigger Point Release Body Position Sitting Joint Mobilizations GH jt Direction posterior Grade II Body Position Sitting Comments gentle, positive feedback response initial cueing for scapular setting. PT-OP-T Assessment and Plan Start: 12/14/23 16:36 Freq: Status: Active Protocol: Document 02/04/24 14:30 DCW (Rec: 02/04/24 15:15 DCW [id number]) Physical Therapy Assessment Impairments Impairments Activity Tolerance,Functional Activities,Functional Mobility ,Pain,ROM,Soft Tissue Mobility ,Strength,Tone Goals Three Impairment Right shoulder weakness (MMT R flexion and abduction both 3- /5) Fund Raiser Goal (LTG) Pt to increase right shoulder flexion and abduction MMT to at least 3+/5 in order to enable her to lift items into overhead cabinets at home. LTG Duration 02/13/24 Two Impairment Right shoulder flexion limited to 124? Retirement Goal (LTG) Pt to increase right shoulder flexion to >145? in order to improve ability to don/doff her shirt without pain LTG Duration 02/13/24 One Impairment Pt does not have an appropriate home exercise program Short Term Goal (STG) Pt to be independent and compliant with an appropriate HEP STG Duration 01/13/24 Assessment Summary Assessment Passive R shoulder flexion measured at 139? today, significantly improved from 90 ? at initial evaluation. Active flexion also improved from 124? to 138? since initial eval. Pt progressing well with HEP, feeling more comfortable with exercises and stretching at home to help management of pain. Physical Therapy Plan Frequency and Duration Frequency of Treatment 2x/Week Plan of Care Start Date 12/14/23 Plan of Care End Date 02/13/24 Therapeutic Interventions Therapeutic Interventions Home Exercise Program,Joint Mobilizations,Manual Therapy, Neuromuscular Re-education, Patient/Caregiver Education, Self-Care/Home Management,Soft Tissue Mobilization,Taping, Therapeutic Activities, Therapeutic Exercises Modalities Cold Pack/Ice Massage,Electric Stimulation,Hot Packs Next Visit Focus/Plan Next Note Type Treatment Note Next Visit Plan POC: Shoulder mobility, strengthening, stretching, increasing activity tolerance
--- NOTE | 2024-02-09 15:20 | PT.OTN ---
Current Diagnoses Pain in right shoulder (02/09/24) Stiffness of right shoulder, not elsewhere classified (02/09/24) Complete rotator cuff tear or rupture of right shoulder, not specified as traumatic (02/09/24) Physical Therapy Treatment Note PT-OP-A Visit Information Start: 12/14/23 16:36 Freq: Status: Active Protocol: Document 02/09/24 14:30 DCW (Rec: 02/09/24 15:20 DCW [id number]) Out-Patient Physical Therapy Visit Information Visit Information Visit Type Progress Note Visit Start Time 14:30 Visit Stop Time 15:15 Visit Number 10 Number of BURN CENTER NURSE Visits 0 Evaluation Information Evaluation Date 12/14/23 PT-OP-B Current Condition Start: 12/14/23 16:36 Freq: Status: Active Protocol: Document 12/14/23 14:30 DCW (Rec: 12/14/23 17:31 DCW [id number]) Current Condition History of Current Condition Onset Date Six month history Current Complaints Right shoulder pain, limitations with functional mobility History of Current Condition Pt is an 78 year old female presenting with a six month history of right shoulder pain . Pt was assessed by ortho and underwent an MRI, and was found to have a complete rotator cuff tear, as well as multiple partial tears. Pt denies any history of traumatic injury, unsure of the cause of her tears. Pt reports that she has fairly good ROM overall, but is limited mainly with lifting anything overhead, or reaching out with weight. Additionally , pt has difficulty when attempting to don/doff her shirt or jacket PT-OP-C Subjective Start: 12/14/23 16:36 Freq: Status: Active Protocol: Document 02/09/24 14:30 DCW (Rec: 02/09/24 15:20 DCW [id number]) OP-PT Subjective Patient Comments Patient Comments Pt feeling more comfortable with independent HEP. Agreeable to decreased frequency. PT-OP-F Manual Assessment Start: 12/14/23 16:36 Freq: Status: Active Protocol: Document 02/09/24 14:30 DCW (Rec: 02/09/24 14:51 DCW [id number]) Manual Assessments Soft Tissue Assessment Soft Tissue Mobility Assessment Mild tone right upper trap, right supraspinatus. Atrophy of right infraspinatus PT-OP-K Range of Motion Start: 12/14/23 16:36 Freq: Status: Active Protocol: Document 02/09/24 14:30 DCW (Rec: 02/09/24 14:51 DCW [id number]) Shoulder Goniometric Range of Motion Shoulder Right Passive Flexion 140 Abduction 158 Right Active Testing Position Sitting Flexion 135 Abduction 136 External Rotation at 0 degrees Abduction 68 Internal Rotation Behind Back (text) T8 Left Active Testing Position Sitting Flexion 146 Abduction 164 External Rotation at 0 degrees Abduction 74 Internal Rotation Behind Back (text) T6 Shoulder ROM Limitations Shoulder ROM Limitations Soft Tissue Tightness,Muscle Weakness,Muscle Tone,Pain PT-OP-L Special Tests Start: 12/14/23 16:36 Freq: Status: Active Protocol: Document 02/09/24 14:30 DCW (Rec: 02/09/24 14:51 DCW [id number]) Special Tests Shoulder Special Tests Painful Arc Test Results Positive R Empty Can Test Results Negative Rebollar Francis Impingement Test Results Positive R PT-OP-M Strength Start: 12/14/23 16:36 Freq: Status: Active Protocol: Document 02/09/24 14:30 DCW (Rec: 02/09/24 14:51 DCW [id number]) Shoulder Strength Shoulder Manual Muscle Testing Right Flexion 3+ Fair+ Abduction (C5) 3+ Fair+ External Rotation 4 Good Internal Rotation 4 Good PT-OP-Q Treatments Start: 12/14/23 16:36 Freq: Status: Active Protocol: Document 02/09/24 14:30 DCW (Rec: 02/09/24 15:20 DCW [id number]) Therapeutic Exercises Standing Exercises Overhead press Standing Exercise Name Overhead Press Side right Resistance 1# Other Exercises Ball circles Other Exercise Name Ball walk up wall Side right Comments flexion/abd Resisted Ambulation Other Exercise Name Resisted UE Side-stepping Resistance Green PT-OP-T Assessment and Plan Start: 12/14/23 16:36 Freq: Status: Active Protocol: Document 02/09/24 14:30 DCW (Rec: 02/09/24 15:20 DCW [id number]) Physical Therapy Assessment Impairments Impairments Activity Tolerance,Functional Activities,Functional Mobility ,Pain,ROM,Soft Tissue Mobility ,Strength,Tone Goals Three Impairment Right shoulder weakness (MMT R flexion and abduction both 3- /5) Inside Upholsterer Goal (LTG) Pt to increase right shoulder flexion and abduction MMT to at least 3+/5 in order to enable her to lift items into overhead cabinets at home. LTG Duration Met Two Impairment Right shoulder flexion limited to 124? Inside Upholsterer Goal (LTG) Pt to increase right shoulder flexion to >145? in order to improve ability to don/doff her shirt without pain LTG Duration 03/10/24 One Impairment Pt does not have an appropriate home exercise program Short Term Goal (STG) Pt to be independent and compliant with an appropriate HEP STG Duration Met Assessment Summary Assessment PROM continues to improve significantly since initial evaluation, AROM shows more modest gains, but still improved. Difficult to determine at this time what pt 's ceiling is for recovery based on severity of tears, but may be approaching plateau . Discussed decreasing frequency to allow for transition to independent HEP, pt agreeable to this plan, does have follow-up with ortho , pt still undecided on potential surgical intervention. Physical Therapy Plan Frequency and Duration Frequency of Treatment 1x/Week Plan of Care Start Date 02/09/24 Plan of Care End Date 03/10/24 Therapeutic Interventions Therapeutic Interventions Home Exercise Program,Joint Mobilizations,Manual Therapy, Neuromuscular Re-education, Patient/Caregiver Education, Self-Care/Home Management,Soft Tissue Mobilization,Taping, Therapeutic Activities, Therapeutic Exercises Modalities Cold Pack/Ice Massage,Electric Stimulation,Hot Packs Next Visit Focus/Plan Next Note Type Treatment Note Next Visit Plan POC: Shoulder mobility, strengthening, stretching, increasing activity tolerance
--- NOTE | 2024-02-09 15:23 | PT.OTN ---
Current Diagnoses Pain in right shoulder (02/09/24) Stiffness of right shoulder, not elsewhere classified (02/09/24) Complete rotator cuff tear or rupture of right shoulder, not specified as traumatic (02/09/24) Physical Therapy Treatment Note PT-OP-A Visit Information Start: 12/14/23 16:36 Freq: Status: Active Protocol: Document 02/09/24 14:30 DCW (Rec: 02/09/24 15:20 DCW [id number]) Out-Patient Physical Therapy Visit Information Visit Information Visit Type Progress Note Visit Start Time 14:30 Visit Stop Time 15:15 Visit Number 10 Number of CASH MANAGEMENT COORDINATOR Visits 0 Evaluation Information Evaluation Date 12/14/23 PT-OP-B Current Condition Start: 12/14/23 16:36 Freq: Status: Active Protocol: Document 12/14/23 14:30 DCW (Rec: 12/14/23 17:31 DCW [id number]) Current Condition History of Current Condition Onset Date Six month history Current Complaints Right shoulder pain, limitations with functional mobility History of Current Condition Pt is an 78 year old female presenting with a six month history of right shoulder pain . Pt was assessed by ortho and underwent an MRI, and was found to have a complete rotator cuff tear, as well as multiple partial tears. Pt denies any history of traumatic injury, unsure of the cause of her tears. Pt reports that she has fairly good ROM overall, but is limited mainly with lifting anything overhead, or reaching out with weight. Additionally , pt has difficulty when attempting to don/doff her shirt or jacket PT-OP-C Subjective Start: 12/14/23 16:36 Freq: Status: Active Protocol: Document 02/09/24 14:30 DCW (Rec: 02/09/24 15:20 DCW [id number]) OP-PT Subjective Patient Comments Patient Comments Pt feeling more comfortable with independent HEP. Agreeable to decreased frequency. PT-OP-F Manual Assessment Start: 12/14/23 16:36 Freq: Status: Active Protocol: Document 02/09/24 14:30 DCW (Rec: 02/09/24 14:51 DCW [id number]) Manual Assessments Soft Tissue Assessment Soft Tissue Mobility Assessment Mild tone right upper trap, right supraspinatus. Atrophy of right infraspinatus PT-OP-K Range of Motion Start: 12/14/23 16:36 Freq: Status: Active Protocol: Document 02/09/24 14:30 DCW (Rec: 02/09/24 14:51 DCW [id number]) Shoulder Goniometric Range of Motion Shoulder Right Passive Flexion 140 Abduction 158 Right Active Testing Position Sitting Flexion 135 Abduction 136 External Rotation at 0 degrees Abduction 68 Internal Rotation Behind Back (text) T8 Left Active Testing Position Sitting Flexion 146 Abduction 164 External Rotation at 0 degrees Abduction 74 Internal Rotation Behind Back (text) T6 Shoulder ROM Limitations Shoulder ROM Limitations Soft Tissue Tightness,Muscle Weakness,Muscle Tone,Pain PT-OP-L Special Tests Start: 12/14/23 16:36 Freq: Status: Active Protocol: Document 02/09/24 14:30 DCW (Rec: 02/09/24 14:51 DCW [id number]) Special Tests Shoulder Special Tests Painful Arc Test Results Positive R Empty Can Test Results Negative Rebollar Francis Impingement Test Results Positive R PT-OP-M Strength Start: 12/14/23 16:36 Freq: Status: Active Protocol: Document 02/09/24 14:30 DCW (Rec: 02/09/24 14:51 DCW [id number]) Shoulder Strength Shoulder Manual Muscle Testing Right Flexion 3+ Fair+ Abduction (C5) 3+ Fair+ External Rotation 4 Good Internal Rotation 4 Good PT-OP-Q Treatments Start: 12/14/23 16:36 Freq: Status: Active Protocol: Document 02/09/24 14:30 DCW (Rec: 02/09/24 15:20 DCW [id number]) Therapeutic Exercises Standing Exercises Overhead press Standing Exercise Name Overhead Press Side right Resistance 1# Other Exercises Ball circles Other Exercise Name Ball walk up wall Side right Comments flexion/abd Resisted Ambulation Other Exercise Name Resisted UE Side-stepping Resistance Green PT-OP-T Assessment and Plan Start: 12/14/23 16:36 Freq: Status: Active Protocol: Document 02/09/24 14:30 DCW (Rec: 02/09/24 15:20 DCW [id number]) Physical Therapy Assessment Impairments Impairments Activity Tolerance,Functional Activities,Functional Mobility ,Pain,ROM,Soft Tissue Mobility ,Strength,Tone Goals Three Impairment Right shoulder weakness (MMT R flexion and abduction both 3- /5) Pharm Spec Goal (LTG) Pt to increase right shoulder flexion and abduction MMT to at least 3+/5 in order to enable her to lift items into overhead cabinets at home. LTG Duration Met Two Impairment Right shoulder flexion limited to 124? Pharm Spec Goal (LTG) Pt to increase right shoulder flexion to >145? in order to improve ability to don/doff her shirt without pain LTG Duration 03/10/24 One Impairment Pt does not have an appropriate home exercise program Short Term Goal (STG) Pt to be independent and compliant with an appropriate HEP STG Duration Met Assessment Summary Assessment PROM continues to improve significantly since initial evaluation, AROM shows more modest gains, but still improved. Difficult to determine at this time what pt 's ceiling is for recovery based on severity of tears, but may be approaching plateau . Discussed decreasing frequency to allow for transition to independent HEP, pt agreeable to this plan, does have follow-up with ortho , pt still undecided on potential surgical intervention. Physical Therapy Plan Frequency and Duration Frequency of Treatment 1x/Week Plan of Care Start Date 02/09/24 Plan of Care End Date 03/24/24 Therapeutic Interventions Therapeutic Interventions Home Exercise Program,Joint Mobilizations,Manual Therapy, Neuromuscular Re-education, Patient/Caregiver Education, Self-Care/Home Management,Soft Tissue Mobilization,Taping, Therapeutic Activities, Therapeutic Exercises Modalities Cold Pack/Ice Massage,Electric Stimulation,Hot Packs Next Visit Focus/Plan Next Note Type Treatment Note Next Visit Plan POC: Shoulder mobility, strengthening, stretching, increasing activity tolerance
--- NOTE | 2024-02-09 15:24 | PT.OPPOC ---
Physical, Occupational & Speech Therapy At [facility] Current Diagnoses Pain in right shoulder (02/09/24) Stiffness of right shoulder, not elsewhere classified (02/09/24) Complete rotator cuff tear or rupture of right shoulder, not specified as traumatic (02/09/24) Visit Care Team Role Provider Type Ariella Costa DO Family Provider Physician Primary Care Provider Specialty: Medical Address: [address] [place] [address], [address], [place], [address] Email: [email or web address] Ruffin MD Attending Provider Physician Referring Provider Specialty: Orthopedics Orthopedic Surgery Address: [address] [place] [address], [place], [address] Email: Plan Of Care PT-OP-T Assessment and Plan Start: 12/14/23 16:36 Freq: Status: Active Protocol: Document 02/09/24 14:30 DCW (Rec: 02/09/24 15:20 DCW [id number]) Physical Therapy Assessment Impairments Impairments Activity Tolerance,Functional Activities,Functional Mobility ,Pain,ROM,Soft Tissue Mobility ,Strength,Tone Goals Three Impairment Right shoulder weakness (MMT R flexion and abduction both 3- /5) Alf Goal (LTG) Pt to increase right shoulder flexion and abduction MMT to at least 3+/5 in order to enable her to lift items into overhead cabinets at home. LTG Duration Met Two Impairment Right shoulder flexion limited to 124? Flour Mixer Helper Goal (LTG) Pt to increase right shoulder flexion to >145? in order to improve ability to don/doff her shirt without pain LTG Duration 03/10/24 One Impairment Pt does not have an appropriate home exercise program Short Term Goal (STG) Pt to be independent and compliant with an appropriate HEP STG Duration Met Assessment Summary Assessment PROM continues to improve significantly since initial evaluation, AROM shows more modest gains, but still improved. Difficult to determine at this time what pt 's ceiling is for recovery based on severity of tears, but may be approaching plateau . Discussed decreasing frequency to allow for transition to independent HEP, pt agreeable to this plan, does have follow-up with ortho , pt still undecided on potential surgical intervention. Physical Therapy Plan Frequency and Duration Frequency of Treatment 1x/Week Plan of Care Start Date 02/09/24 Plan of Care End Date 03/24/24 Therapeutic Interventions Therapeutic Interventions Home Exercise Program,Joint Mobilizations,Manual Therapy, Neuromuscular Re-education, Patient/Caregiver Education, Self-Care/Home Management,Soft Tissue Mobilization,Taping, Therapeutic Activities, Therapeutic Exercises Modalities Cold Pack/Ice Massage,Electric Stimulation,Hot Packs Next Visit Focus/Plan Next Note Type Treatment Note Next Visit Plan POC: Shoulder mobility, strengthening, stretching, increasing activity tolerance Plan of Care Dates Plan of Care Start Date 02/09/24 Plan of Care End Date 03/24/24 Electronically Signed by: Horacio Espinoza PT 02/09/24 0033 If you are in agreement with this Plan of Care, please return a signed and dated copy. I have reviewed this Plan of Care and certify that the skilled therapy services above are required to meet the patient?s needs. Physician Signature Date Printed Name and Credentials Clinical Instructor Signature Printed Name and Credentials
--- NOTE | 2024-02-17 16:23 | PT.OTN ---
Current Diagnoses Pain in right shoulder (02/17/24) Stiffness of right shoulder, not elsewhere classified (02/17/24) Complete rotator cuff tear or rupture of right shoulder, not specified as traumatic (02/17/24) Physical Therapy Treatment Note PT-OP-A Visit Information Start: 12/14/23 16:36 Freq: Status: Active Protocol: Document 02/17/24 14:00 AB (Rec: 02/17/24 16:22 AB [id number]) Out-Patient Physical Therapy Visit Information Visit Information Visit Type Treatment Note Visit Start Time 15:18 Visit Stop Time 16:04 Visit Number 11 Number of SUPERVISOR HEAT TREATING Visits 1 Evaluation Information Evaluation Date 12/14/23 PT-OP-B Current Condition Start: 12/14/23 16:36 Freq: Status: Active Protocol: Document 12/14/23 14:30 DCW (Rec: 12/14/23 17:31 DCW [id number]) Current Condition History of Current Condition Onset Date Six month history Current Complaints Right shoulder pain, limitations with functional mobility History of Current Condition Pt is an 78 year old female presenting with a six month history of right shoulder pain . Pt was assessed by ortho and underwent an MRI, and was found to have a complete rotator cuff tear, as well as multiple partial tears. Pt denies any history of traumatic injury, unsure of the cause of her tears. Pt reports that she has fairly good ROM overall, but is limited mainly with lifting anything overhead, or reaching out with weight. Additionally , pt has difficulty when attempting to don/doff her shirt or jacket PT-OP-C Subjective Start: 12/14/23 16:36 Freq: Status: Active Protocol: Document 02/17/24 14:00 AB (Rec: 02/17/24 16:22 AB [id number]) OP-PT Subjective Patient Comments Patient Comments Patient reports the shoulder is a little better. Patient reports she had difficulty lifiting mulch into car, was able to do it, but comments she shouldn't have done it. Patient reports she has an appoint March 03 phone appointment. AROM right shoulder flexion 128 deg. PT-OP-F Manual Assessment Start: 12/14/23 16:36 Freq: Status: Active Protocol: Document 02/09/24 14:30 DCW (Rec: 02/09/24 14:51 DCW [id number]) Manual Assessments Soft Tissue Assessment Soft Tissue Mobility Assessment Mild tone right upper trap, right supraspinatus. Atrophy of right infraspinatus PT-OP-K Range of Motion Start: 12/14/23 16:36 Freq: Status: Active Protocol: Document 02/09/24 14:30 DCW (Rec: 02/09/24 14:51 DCW [id number]) Shoulder Goniometric Range of Motion Shoulder Right Passive Flexion 140 Abduction 158 Right Active Testing Position Sitting Flexion 135 Abduction 136 External Rotation at 0 degrees Abduction 68 Internal Rotation Behind Back (text) T8 Left Active Testing Position Sitting Flexion 146 Abduction 164 External Rotation at 0 degrees Abduction 74 Internal Rotation Behind Back (text) T6 Shoulder ROM Limitations Shoulder ROM Limitations Soft Tissue Tightness,Muscle Weakness,Muscle Tone,Pain PT-OP-L Special Tests Start: 12/14/23 16:36 Freq: Status: Active Protocol: Document 02/09/24 14:30 DCW (Rec: 02/09/24 14:51 DCW [id number]) Special Tests Shoulder Special Tests Painful Arc Test Results Positive R Empty Can Test Results Negative Rebollar Francis Impingement Test Results Positive R PT-OP-M Strength Start: 12/14/23 16:36 Freq: Status: Active Protocol: Document 02/09/24 14:30 DCW (Rec: 02/09/24 14:51 DCW [id number]) Shoulder Strength Shoulder Manual Muscle Testing Right Flexion 3+ Fair+ Abduction (C5) 3+ Fair+ External Rotation 4 Good Internal Rotation 4 Good PT-OP-Q Treatments Start: 12/14/23 16:36 Freq: Status: Active Protocol: Document 02/17/24 14:00 AB (Rec: 02/17/24 16:22 AB [id number]) Therapeutic Exercises Supine Exercises chest road production general manager Side bilateral Reps/Minutes X2 min Comments tactile and verbal cues Sidelying Exercises open book Sidelying Exercise Name added to HEP Side right Resistance hand on head Reps/Minutes 5 reps Comments tactile cues scapular ROM Standing Exercises Pec Stretch Standing Exercise Name Doorway Stretch Side bilateral Rows Standing Exercise Name Rows Side bilateral Resistance green band Reps/Minutes X15 ER Standing Exercise Name Standing ER/IR HEP Side right Resistance Lv 3 lev 2 level 1 Reps/Minutes 3-4 each level theh X 10 for isomet react level 1 Comments Monitored for pain. Pt ed to perform isomet reactive * Manual Therapy Treatment Soft Tissue Mobilization R scap Body Location UT, LS, pec major, lat, post cuff Mobilization Type Cross-Friction,Rolling, Sustained Pressure Intensity/Depth Moderate Body Position Sidelying Comments pec in hooklying Joint Mobilizations GH jt Joint right Direction posterior and inf Grade II Body Position Hooklying R scapulothoracic Jt Direction retraction/depresssion Grade III Body Position LSidelying Reps/Duration X5X 6 PT-OP-T Assessment and Plan Start: 12/14/23 16:36 Freq: Status: Active Protocol: Document 02/17/24 14:00 AB (Rec: 02/17/24 16:22 AB [id number]) Physical Therapy Assessment Goals Three Impairment Right shoulder weakness (MMT R flexion and abduction both 3- /5) Detention Goal (LTG) Pt to increase right shoulder flexion and abduction MMT to at least 3+/5 in order to enable her to lift items into overhead cabinets at home. LTG Duration Met Two Impairment Right shoulder flexion limited to 124? Sheet Metal Duct Worker Supervisor Goal (LTG) Pt to increase right shoulder flexion to >145? in order to improve ability to don/doff her shirt without pain LTG Duration 03/10/24 One Impairment Pt does not have an appropriate home exercise program Short Term Goal (STG) Pt to be independent and compliant with an appropriate HEP STG Duration Met Assessment Summary Assessment right shoulder :143 deg AROM supine shoulder flexion post manual, 134 deg AROM shoulder flexion in standing end of session. Patient advised to perform isometric reactive until no pain with trials of ER and IR in band. Physical Therapy Plan Frequency and Duration Frequency of Treatment 1x/Week Plan of Care Start Date 02/09/24 Plan of Care End Date 03/24/24 Next Visit Focus/Plan Next Note Type Treatment Note Next Visit Plan POC: Shoulder mobility, strengthening, stretching, increasing activity tolerance
--- NOTE | 2024-03-07 17:35 | PT.OTN ---
Current Diagnoses Pain in right shoulder (03/07/24) Stiffness of right shoulder, not elsewhere classified (03/07/24) Complete rotator cuff tear or rupture of right shoulder, not specified as traumatic (03/07/24) Physical Therapy Treatment Note PT-OP-A Visit Information Start: 12/14/23 16:36 Freq: Status: Active Protocol: Document 03/07/24 16:45 DCW (Rec: 03/07/24 17:34 DCW [id number]) Out-Patient Physical Therapy Visit Information Visit Information Visit Type Treatment Note Visit Start Time 16:45 Visit Stop Time 17:30 Visit Number 14 Number of LAPEL PADDER BLINDSTITCH Visits 0 Evaluation Information Evaluation Date 12/14/23 PT-OP-B Current Condition Start: 12/14/23 16:36 Freq: Status: Active Protocol: Document 12/14/23 14:30 DCW (Rec: 12/14/23 17:31 DCW [id number]) Current Condition History of Current Condition Onset Date Six month history Current Complaints Right shoulder pain, limitations with functional mobility History of Current Condition Pt is an 78 year old female presenting with a six month history of right shoulder pain . Pt was assessed by ortho and underwent an MRI, and was found to have a complete rotator cuff tear, as well as multiple partial tears. Pt denies any history of traumatic injury, unsure of the cause of her tears. Pt reports that she has fairly good ROM overall, but is limited mainly with lifting anything overhead, or reaching out with weight. Additionally , pt has difficulty when attempting to don/doff her shirt or jacket PT-OP-C Subjective Start: 12/14/23 16:36 Freq: Status: Active Protocol: Document 03/07/24 16:45 DCW (Rec: 03/07/24 17:34 DCW [id number]) OP-PT Subjective Patient Comments Patient Comments Pt still going back and forth regarding shoulder surgery. Currently leaning toward going through with it this winter, but knows that keeping it strong will lead to better outcomes. PT-OP-F Manual Assessment Start: 12/14/23 16:36 Freq: Status: Active Protocol: Document 02/09/24 14:30 DCW (Rec: 02/09/24 14:51 DCW [id number]) Manual Assessments Soft Tissue Assessment Soft Tissue Mobility Assessment Mild tone right upper trap, right supraspinatus. Atrophy of right infraspinatus PT-OP-K Range of Motion Start: 12/14/23 16:36 Freq: Status: Active Protocol: Document 02/09/24 14:30 DCW (Rec: 02/09/24 14:51 DCW [id number]) Shoulder Goniometric Range of Motion Shoulder Right Passive Flexion 140 Abduction 158 Right Active Testing Position Sitting Flexion 135 Abduction 136 External Rotation at 0 degrees Abduction 68 Internal Rotation Behind Back (text) T8 Left Active Testing Position Sitting Flexion 146 Abduction 164 External Rotation at 0 degrees Abduction 74 Internal Rotation Behind Back (text) T6 Shoulder ROM Limitations Shoulder ROM Limitations Soft Tissue Tightness,Muscle Weakness,Muscle Tone,Pain PT-OP-L Special Tests Start: 12/14/23 16:36 Freq: Status: Active Protocol: Document 02/09/24 14:30 DCW (Rec: 02/09/24 14:51 DCW [id number]) Special Tests Shoulder Special Tests Painful Arc Test Results Positive R Empty Can Test Results Negative Rebollar Francis Impingement Test Results Positive R PT-OP-M Strength Start: 12/14/23 16:36 Freq: Status: Active Protocol: Document 02/09/24 14:30 DCW (Rec: 02/09/24 14:51 DCW [id number]) Shoulder Strength Shoulder Manual Muscle Testing Right Flexion 3+ Fair+ Abduction (C5) 3+ Fair+ External Rotation 4 Good Internal Rotation 4 Good PT-OP-Q Treatments Start: 12/14/23 16:36 Freq: Status: Active Protocol: Document 03/07/24 16:45 DCW (Rec: 03/07/24 17:34 DCW [id number]) Gym Equipment Therapeutic Ball vs Perturbation Exercise Details Stabilization vs perturbation Ball Size/Color Blue - 45 cm Body Position Supine Therapeutic Exercises Supine Exercises Flexion Supine Exercise Name AAROM /c T-ball Side bilateral Manual Therapy Treatment Consent Patient gave verbal consent for manual Yes treatment Soft Tissue Mobilization R scap Body Location UT, LS, pec major, lat, post cuff Mobilization Type Cross-Friction,Rolling, Sustained Pressure Intensity/Depth Moderate Body Position Sidelying Comments pec in hooklying Upper Trap Body Location R UT Mobilization Type Strumming,Sustained Pressure, Trigger Point Release Intensity/Depth Moderate Body Position Sidelying Self-Care/Home Management Treatment Education Other Education Lengthy discussion regarding expectations of typical surgical recovery expectations , need for maintaining strength pre-surgical intervention, importance of compliance to HEP PT-OP-T Assessment and Plan Start: 12/14/23 16:36 Freq: Status: Active Protocol: Document 03/07/24 16:45 DCW (Rec: 03/07/24 17:34 DCW [id number]) Physical Therapy Assessment Impairments Impairments Activity Tolerance,Functional Activities,Functional Mobility ,Pain,ROM,Soft Tissue Mobility ,Strength,Tone Goals Three Impairment Right shoulder weakness (MMT R flexion and abduction both 3- /5) Custodial Goal (LTG) Pt to increase right shoulder flexion and abduction MMT to at least 3+/5 in order to enable her to lift items into overhead cabinets at home. LTG Duration Met Two Impairment Right shoulder flexion limited to 124? Custodial Goal (LTG) Pt to increase right shoulder flexion to >145? in order to improve ability to don/doff her shirt without pain LTG Duration 03/10/24 One Impairment Pt does not have an appropriate home exercise program Short Term Goal (STG) Pt to be independent and compliant with an appropriate HEP STG Duration Met Assessment Summary Assessment Spent time discussing pt's plan going forward. Will likely progress with PT to build strength and mobility as much as possible, then have surgery in the winter. Pt did note she has been having difficulty getting up from low places due to being unable to push with her right arm, may benefit from some focus on LE strengthening. Physical Therapy Plan Frequency and Duration Frequency of Treatment 1x/Week Plan of Care Start Date 02/09/24 Plan of Care End Date 03/24/24 Therapeutic Interventions Therapeutic Interventions Home Exercise Program,Joint Mobilizations,Manual Therapy, Neuromuscular Re-education, Patient/Caregiver Education, Self-Care/Home Management,Soft Tissue Mobilization,Taping, Therapeutic Activities, Therapeutic Exercises Modalities Cold Pack/Ice Massage,Electric Stimulation,Hot Packs Next Visit Focus/Plan Next Note Type Treatment Note Next Visit Plan POC: Shoulder mobility, strengthening, stretching, increasing activity tolerance
--- NOTE | 2024-03-14 17:00 | PT.OTN ---
Current Diagnoses Pain in right shoulder (03/14/24) Stiffness of right shoulder, not elsewhere classified (03/14/24) Complete rotator cuff tear or rupture of right shoulder, not specified as traumatic (03/14/24) Physical Therapy Treatment Note PT-OP-A Visit Information Start: 12/14/23 16:36 Freq: Status: Active Protocol: Document 03/14/24 16:00 DCW (Rec: 03/14/24 17:00 DCW [id number]) Out-Patient Physical Therapy Visit Information Visit Information Visit Type Treatment Note Visit Start Time 16:00 Visit Stop Time 16:45 Visit Number 15 Number of PIPE TESTING TECHNICIAN Visits 0 Evaluation Information Evaluation Date 12/14/23 PT-OP-B Current Condition Start: 12/14/23 16:36 Freq: Status: Active Protocol: Document 12/14/23 14:30 DCW (Rec: 12/14/23 17:31 DCW [id number]) Current Condition History of Current Condition Onset Date Six month history Current Complaints Right shoulder pain, limitations with functional mobility History of Current Condition Pt is an 78 year old female presenting with a six month history of right shoulder pain . Pt was assessed by ortho and underwent an MRI, and was found to have a complete rotator cuff tear, as well as multiple partial tears. Pt denies any history of traumatic injury, unsure of the cause of her tears. Pt reports that she has fairly good ROM overall, but is limited mainly with lifting anything overhead, or reaching out with weight. Additionally , pt has difficulty when attempting to don/doff her shirt or jacket PT-OP-C Subjective Start: 12/14/23 16:36 Freq: Status: Active Protocol: Document 03/14/24 16:00 DCW (Rec: 03/14/24 17:00 DCW [id number]) OP-PT Subjective Patient Comments Patient Comments I've had a lot more pain with it. PT-OP-F Manual Assessment Start: 12/14/23 16:36 Freq: Status: Active Protocol: Document 02/09/24 14:30 DCW (Rec: 02/09/24 14:51 DCW [id number]) Manual Assessments Soft Tissue Assessment Soft Tissue Mobility Assessment Mild tone right upper trap, right supraspinatus. Atrophy of right infraspinatus PT-OP-K Range of Motion Start: 12/14/23 16:36 Freq: Status: Active Protocol: Document 02/09/24 14:30 DCW (Rec: 02/09/24 14:51 DCW [id number]) Shoulder Goniometric Range of Motion Shoulder Right Passive Flexion 140 Abduction 158 Right Active Testing Position Sitting Flexion 135 Abduction 136 External Rotation at 0 degrees Abduction 68 Internal Rotation Behind Back (text) T8 Left Active Testing Position Sitting Flexion 146 Abduction 164 External Rotation at 0 degrees Abduction 74 Internal Rotation Behind Back (text) T6 Shoulder ROM Limitations Shoulder ROM Limitations Soft Tissue Tightness,Muscle Weakness,Muscle Tone,Pain PT-OP-L Special Tests Start: 12/14/23 16:36 Freq: Status: Active Protocol: Document 02/09/24 14:30 DCW (Rec: 02/09/24 14:51 DCW [id number]) Special Tests Shoulder Special Tests Painful Arc Test Results Positive R Empty Can Test Results Negative Rebollar Francis Impingement Test Results Positive R PT-OP-M Strength Start: 12/14/23 16:36 Freq: Status: Active Protocol: Document 02/09/24 14:30 DCW (Rec: 02/09/24 14:51 DCW [id number]) Shoulder Strength Shoulder Manual Muscle Testing Right Flexion 3+ Fair+ Abduction (C5) 3+ Fair+ External Rotation 4 Good Internal Rotation 4 Good PT-OP-Q Treatments Start: 12/14/23 16:36 Freq: Status: Active Protocol: Document 03/14/24 16:00 DCW (Rec: 03/14/24 17:00 DCW [id number]) Therapeutic Exercises Standing Exercises Diagonals Standing Exercise Name Straight-arm diagonal pull Side bilateral Resistance Lv 2 PNF Standing Exercise Name D1/D2 UE flexion Side right Resistance 2# Comments Pain-free ROM Abduction Standing Exercise Name Horizontal Abduction Side bilateral Resistance Lv 2 Wall Slide Standing Exercise Name Wall Slide Side right Comments Flexion, Abduction Manual Therapy Treatment Consent Patient gave verbal consent for manual Yes treatment Soft Tissue Mobilization R scap Body Location UT, LS, pec major, lat, post cuff Mobilization Type Cross-Friction,Rolling, Sustained Pressure Intensity/Depth Moderate Body Position Sidelying Comments pec in hooklying Upper Trap Body Location R UT Mobilization Type Strumming,Sustained Pressure, Trigger Point Release Intensity/Depth Moderate Body Position Sidelying Joint Mobilizations GH jt Joint right Direction posterior and inf Grade II Body Position Hooklying R scapulothoracic Jt Direction retraction/depresssion, rotation Grade II Body Position LSidelying Reps/Duration x5 Comments w/ open book PT-OP-T Assessment and Plan Start: 12/14/23 16:36 Freq: Status: Active Protocol: Document 03/14/24 16:00 DCW (Rec: 03/14/24 17:00 DCW [id number]) Physical Therapy Assessment Impairments Impairments Activity Tolerance,Functional Activities,Functional Mobility ,Pain,ROM,Soft Tissue Mobility ,Strength,Tone Goals Three Impairment Right shoulder weakness (MMT R flexion and abduction both 3- /5) Rectifying Operator Goal (LTG) Pt to increase right shoulder flexion and abduction MMT to at least 3+/5 in order to enable her to lift items into overhead cabinets at home. LTG Duration Met Two Impairment Right shoulder flexion limited to 124? Retirement Goal (LTG) Pt to increase right shoulder flexion to >145? in order to improve ability to don/doff her shirt without pain LTG Duration 03/10/24 One Impairment Pt does not have an appropriate home exercise program Short Term Goal (STG) Pt to be independent and compliant with an appropriate HEP STG Duration Met Assessment Summary Assessment Recent house guests have led to pt overuse of shoulders for cooking and cleaning, although still doing relatively well. Good response to activity today. Physical Therapy Plan Frequency and Duration Frequency of Treatment 1x/Week Plan of Care Start Date 02/09/24 Plan of Care End Date 03/24/24 Therapeutic Interventions Therapeutic Interventions Home Exercise Program,Joint Mobilizations,Manual Therapy, Neuromuscular Re-education, Patient/Caregiver Education, Self-Care/Home Management,Soft Tissue Mobilization,Taping, Therapeutic Activities, Therapeutic Exercises Modalities Cold Pack/Ice Massage,Electric Stimulation,Hot Packs Next Visit Focus/Plan Next Note Type Treatment Note Next Visit Plan POC: Shoulder mobility, strengthening, stretching, increasing activity tolerance
--- NOTE | 2024-03-30 16:00 | PT.OTN ---
Current Diagnoses Pain in right shoulder (03/30/24) Stiffness of right shoulder, not elsewhere classified (03/30/24) Complete rotator cuff tear or rupture of right shoulder, not specified as traumatic (03/30/24) Physical Therapy Treatment Note PT-OP-A Visit Information Start: 12/14/23 16:36 Freq: Status: Active Protocol: Document 03/30/24 15:15 DCW (Rec: 03/30/24 15:59 DCW [id number]) Out-Patient Physical Therapy Visit Information Visit Information Visit Type Progress Note Visit Start Time 15:15 Visit Stop Time 16:00 Visit Number 16 Number of UTILITY HAND Visits 0 Evaluation Information Evaluation Date 12/14/23 PT-OP-B Current Condition Start: 12/14/23 16:36 Freq: Status: Active Protocol: Document 12/14/23 14:30 DCW (Rec: 12/14/23 17:31 DCW [id number]) Current Condition History of Current Condition Onset Date Six month history Current Complaints Right shoulder pain, limitations with functional mobility History of Current Condition Pt is an 78 year old female presenting with a six month history of right shoulder pain . Pt was assessed by ortho and underwent an MRI, and was found to have a complete rotator cuff tear, as well as multiple partial tears. Pt denies any history of traumatic injury, unsure of the cause of her tears. Pt reports that she has fairly good ROM overall, but is limited mainly with lifting anything overhead, or reaching out with weight. Additionally , pt has difficulty when attempting to don/doff her shirt or jacket PT-OP-C Subjective Start: 12/14/23 16:36 Freq: Status: Active Protocol: Document 03/30/24 15:15 DCW (Rec: 03/30/24 15:59 DCW [id number]) OP-PT Subjective Patient Comments Patient Comments It's alright sometimes, it's not other times. PT-OP-F Manual Assessment Start: 12/14/23 16:36 Freq: Status: Active Protocol: Document 03/30/24 15:15 DCW (Rec: 03/30/24 15:47 DCW [id number]) Manual Assessments Soft Tissue Assessment Soft Tissue Mobility Assessment Mild tone right upper trap, right supraspinatus. Atrophy of right infraspinatus PT-OP-K Range of Motion Start: 12/14/23 16:36 Freq: Status: Active Protocol: Document 03/30/24 15:15 DCW (Rec: 03/30/24 15:47 DCW [id number]) Shoulder Goniometric Range of Motion Shoulder Right Passive Testing Position Supine Flexion 132 Abduction 117 Right Active Testing Position Sitting Flexion 125 Abduction 120 External Rotation at 0 degrees Abduction 68 Internal Rotation Behind Back (text) T8 Left Active Testing Position Sitting Flexion 138 Abduction 120 External Rotation at 0 degrees Abduction 73 Internal Rotation Behind Back (text) T6 Shoulder ROM Limitations Shoulder ROM Limitations Soft Tissue Tightness,Muscle Weakness,Muscle Tone,Pain PT-OP-L Special Tests Start: 12/14/23 16:36 Freq: Status: Active Protocol: Document 03/30/24 15:15 DCW (Rec: 03/30/24 15:47 DCW [id number]) Special Tests Shoulder Special Tests Painful Arc Test Results Positive R Rebollar Francis Impingement Test Results Positive R PT-OP-M Strength Start: 12/14/23 16:36 Freq: Status: Active Protocol: Document 03/30/24 15:15 DCW (Rec: 03/30/24 15:47 DCW [id number]) Shoulder Strength Shoulder Manual Muscle Testing Left Flexion 3+ Fair+ Abduction (C5) 3+ Fair+ External Rotation 4 Good Internal Rotation 4 Good Right Flexion 3- Fair- Abduction (C5) 3- Fair- External Rotation 4 Good Internal Rotation 4 Good PT-OP-Q Treatments Start: 12/14/23 16:36 Freq: Status: Active Protocol: Document 03/30/24 15:15 DCW (Rec: 03/30/24 15:59 DCW [id number]) Manual Therapy Treatment Consent Patient gave verbal consent for manual Yes treatment Soft Tissue Mobilization R scap Body Location UT, LS, pec major, lat, post cuff Mobilization Type Cross-Friction,Rolling, Sustained Pressure Intensity/Depth Moderate Body Position Sidelying Comments pec in hooklying Upper Trap Body Location R UT Mobilization Type Strumming,Sustained Pressure, Trigger Point Release Intensity/Depth Moderate Body Position Sidelying Joint Mobilizations GH jt Joint right Direction posterior and inf Grade II Body Position Hooklying R scapulothoracic Jt Direction retraction/depresssion, rotation Grade II Body Position LSidelying Reps/Duration x5 Comments w/ open book PT-OP-T Assessment and Plan Start: 12/14/23 16:36 Freq: Status: Active Protocol: Document 03/30/24 15:15 DCW (Rec: 03/30/24 15:59 DCW [id number]) Physical Therapy Assessment Impairments Impairments Activity Tolerance,Functional Activities,Functional Mobility ,Pain,ROM,Soft Tissue Mobility ,Strength,Tone Goals Three Impairment Right shoulder weakness (MMT R flexion and abduction both 3- /5) Retirement Goal (LTG) Pt to increase right shoulder flexion and abduction MMT to at least 3+/5 in order to enable her to lift items into overhead cabinets at home. LTG Duration Met Two Impairment Right shoulder flexion limited to 124? Retirement Goal (LTG) Pt to increase right shoulder flexion to >145? in order to improve ability to don/doff her shirt without pain LTG Duration 05/30/24 - decline One Impairment Pt does not have an appropriate home exercise program Short Term Goal (STG) Pt to be independent and compliant with an appropriate HEP STG Duration Met Assessment Summary Assessment Pt comes in today after recovering from COVID. Pt has performed minimal activity the past two weeks, which is reflected in her testing. Passive and active ROM have both declined, pt having slightly more pain with recent set back. Will likely benefit from further therapeutic intervention to regain recent functional loss and increased ROM and shoulder strength. Physical Therapy Plan Frequency and Duration Frequency of Treatment 1x/Week Plan of Care Start Date 03/30/24 Plan of Care End Date 05/30/24 Therapeutic Interventions Therapeutic Interventions Home Exercise Program,Joint Mobilizations,Manual Therapy, Neuromuscular Re-education, Patient/Caregiver Education, Self-Care/Home Management,Soft Tissue Mobilization,Taping, Therapeutic Activities, Therapeutic Exercises Modalities Cold Pack/Ice Massage,Electric Stimulation,Hot Packs Next Visit Focus/Plan Next Note Type Treatment Note Next Visit Plan POC: Shoulder mobility, strengthening, stretching, increasing activity tolerance
--- NOTE | 2024-03-30 16:00 | PT.OPPOC ---
Physical, Occupational & Speech Therapy At [facility] Current Diagnoses Pain in right shoulder (03/30/24) Stiffness of right shoulder, not elsewhere classified (03/30/24) Complete rotator cuff tear or rupture of right shoulder, not specified as traumatic (03/30/24) Visit Care Team Role Provider Type Ariella Costa DO Family Provider Physician Primary Care Provider Specialty: Medical Address: [address] [place] [address], [address], [place], [address] Email: [email or web address] Hugh Ruffin MD Attending Provider Physician Referring Provider Specialty: Orthopedics Orthopedic Surgery Address: [address] [place] [address], [place], [address] Email: [email or web address] Plan Of Care PT-OP-B Current Condition Start: 12/14/23 16:36 Freq: Status: Active Protocol: Document 12/14/23 14:30 DCW (Rec: 12/14/23 17:31 DCW [id number]) Current Condition History of Current Condition Onset Date Six month history Current Complaints Right shoulder pain, limitations with functional mobility History of Current Condition Pt is an 78 year old female presenting with a six month history of right shoulder pain . Pt was assessed by ortho and underwent an MRI, and was found to have a complete rotator cuff tear, as well as multiple partial tears. Pt denies any history of traumatic injury, unsure of the cause of her tears. Pt reports that she has fairly good ROM overall, but is limited mainly with lifting anything overhead, or reaching out with weight. Additionally , pt has difficulty when attempting to don/doff her shirt or jacket PT-OP-T Assessment and Plan Start: 12/14/23 16:36 Freq: Status: Active Protocol: Document 03/30/24 15:15 DCW (Rec: 03/30/24 15:59 DCW [id number]) Physical Therapy Assessment Impairments Impairments Activity Tolerance,Functional Activities,Functional Mobility ,Pain,ROM,Soft Tissue Mobility ,Strength,Tone Goals Three Impairment Right shoulder weakness (MMT R flexion and abduction both 3- /5) Custodial Goal (LTG) Pt to increase right shoulder flexion and abduction MMT to at least 3+/5 in order to enable her to lift items into overhead cabinets at home. LTG Duration Met Two Impairment Right shoulder flexion limited to 124? Swatch Maker Goal (LTG) Pt to increase right shoulder flexion to >145? in order to improve ability to don/doff her shirt without pain LTG Duration 05/30/24 - decline One Impairment Pt does not have an appropriate home exercise program Short Term Goal (STG) Pt to be independent and compliant with an appropriate HEP STG Duration Met Assessment Summary Assessment Pt comes in today after recovering from COVID. Pt has performed minimal activity the past two weeks, which is reflected in her testing. Passive and active ROM have both declined, pt having slightly more pain with recent set back. Will likely benefit from further therapeutic intervention to regain recent functional loss and increased ROM and shoulder strength. Physical Therapy Plan Frequency and Duration Frequency of Treatment 1x/Week Plan of Care Start Date 03/30/24 Plan of Care End Date 05/30/24 Therapeutic Interventions Therapeutic Interventions Home Exercise Program,Joint Mobilizations,Manual Therapy, Neuromuscular Re-education, Patient/Caregiver Education, Self-Care/Home Management,Soft Tissue Mobilization,Taping, Therapeutic Activities, Therapeutic Exercises Modalities Cold Pack/Ice Massage,Electric Stimulation,Hot Packs Next Visit Focus/Plan Next Note Type Treatment Note Next Visit Plan POC: Shoulder mobility, strengthening, stretching, increasing activity tolerance Plan of Care Dates Plan of Care Start Date 03/30/24 Plan of Care End Date 05/30/24 Electronically Signed by: Horacio Espinoza, PT 03/30/24 1600 If you are in agreement with this Plan of Care, please return a signed and dated copy. I have reviewed this Plan of Care and certify that the skilled therapy services above are required to meet the patient?s needs. Physician Signature Date Printed Name and Credentials Clinical Instructor Signature Printed Name and Credentials
--- NOTE | 2024-04-06 11:29 | PT.OTN ---
Current Diagnoses Pain in right shoulder (04/06/24) Stiffness of right shoulder, not elsewhere classified (04/06/24) Complete rotator cuff tear or rupture of right shoulder, not specified as traumatic (04/06/24) Physical Therapy Treatment Note PT-OP-A Visit Information Start: 12/14/23 16:36 Freq: Status: Active Protocol: Document 04/06/24 10:30 NBM (Rec: 04/06/24 11:28 [facility] [id number]) Out-Patient Physical Therapy Visit Information Visit Information Visit Type Treatment Note Visit Start Time 10:34 Visit Stop Time 11:25 Visit Number 17 Number of DESIGN PROJECT MANAGER Visits 1 Evaluation Information Evaluation Date 12/14/23 PT-OP-B Current Condition Start: 12/14/23 16:36 Freq: Status: Active Protocol: Document 12/14/23 14:30 DCW (Rec: 12/14/23 17:31 DCW [id number]) Current Condition History of Current Condition Onset Date Six month history Current Complaints Right shoulder pain, limitations with functional mobility History of Current Condition Pt is an 78 year old female presenting with a six month history of right shoulder pain . Pt was assessed by ortho and underwent an MRI, and was found to have a complete rotator cuff tear, as well as multiple partial tears. Pt denies any history of traumatic injury, unsure of the cause of her tears. Pt reports that she has fairly good ROM overall, but is limited mainly with lifting anything overhead, or reaching out with weight. Additionally , pt has difficulty when attempting to don/doff her shirt or jacket PT-OP-C Subjective Start: 12/14/23 16:36 Freq: Status: Active Protocol: Document 04/06/24 10:30 NBM (Rec: 04/06/24 11:28 [facility] [id number]) OP-PT Subjective Patient Comments Patient Comments Senia reports she's been able to do home ex's again. She's been gardening and weeding and has been sitting and twisting to garden, probably not being mindful of shoulder setting to get weeding done. She has talked to about getting beds raised to standing. Can't hug well from L side with R arm. PT-OP-F Manual Assessment Start: 12/14/23 16:36 Freq: Status: Active Protocol: Document 03/30/24 15:15 DCW (Rec: 03/30/24 15:47 DCW [id number]) Manual Assessments Soft Tissue Assessment Soft Tissue Mobility Assessment Mild tone right upper trap, right supraspinatus. Atrophy of right infraspinatus PT-OP-K Range of Motion Start: 12/14/23 16:36 Freq: Status: Active Protocol: Document 03/30/24 15:15 DCW (Rec: 03/30/24 15:47 DCW [id number]) Shoulder Goniometric Range of Motion Shoulder Right Passive Testing Position Supine Flexion 132 Abduction 117 Right Active Testing Position Sitting Flexion 125 Abduction 120 External Rotation at 0 degrees Abduction 68 Internal Rotation Behind Back (text) T8 Left Active Testing Position Sitting Flexion 138 Abduction 120 External Rotation at 0 degrees Abduction 73 Internal Rotation Behind Back (text) T6 Shoulder ROM Limitations Shoulder ROM Limitations Soft Tissue Tightness,Muscle Weakness,Muscle Tone,Pain PT-OP-L Special Tests Start: 12/14/23 16:36 Freq: Status: Active Protocol: Document 03/30/24 15:15 DCW (Rec: 03/30/24 15:47 DCW [id number]) Special Tests Shoulder Special Tests Painful Arc Test Results Positive R Rebollar Francis Impingement Test Results Positive R PT-OP-M Strength Start: 12/14/23 16:36 Freq: Status: Active Protocol: Document 03/30/24 15:15 DCW (Rec: 03/30/24 15:47 DCW [id number]) Shoulder Strength Shoulder Manual Muscle Testing Left Flexion 3+ Fair+ Abduction (C5) 3+ Fair+ External Rotation 4 Good Internal Rotation 4 Good Right Flexion 3- Fair- Abduction (C5) 3- Fair- External Rotation 4 Good Internal Rotation 4 Good PT-OP-Q Treatments Start: 12/14/23 16:36 Freq: Status: Active Protocol: Document 04/06/24 10:30 NBM (Rec: 04/06/24 11:28 NBM [id number]) Therapeutic Exercises Standing Exercises Wall Slide Standing Exercise Name Flexion, Abduction 1. Finger crawl 2. Wall Slide Side right Equipment Used towel for slide Reps/Minutes 1. x5 ea Comments cues for slower pacing, scapular setting, no UT overact, pain-free ROM Other Exercises Resisted Ambulation Other Exercise Name Resisted UE Side-stepping ( hand, step, hand) Resistance Green Reps/Minutes x10 ft ea Comments pain-free ROM Therapeutic Activity Therapeutic Activity body mechanics Name simulating gardening, weeding Comments pt performs seated and rotated at home. reviewed facing work seated, short kneeling, and half-kneel w/ scapular setting , digging, pulling Manual Therapy Treatment Soft Tissue Mobilization Upper Trap Body Location R UT Mobilization Type Rolling,Strumming,Trigger Point Release Intensity/Depth Moderate Body Position Hooklying Joint Mobilizations GH jt Joint right Direction posterior and inf Grade II Body Position Hooklying Comments positive feedback response PT-OP-T Assessment and Plan Start: 12/14/23 16:36 Freq: Status: Active Protocol: Document 04/06/24 10:30 NBM (Rec: 04/06/24 11:28 NB [id number]) Physical Therapy Assessment Goals Three Impairment Right shoulder weakness (MMT R flexion and abduction both 3- /5) Alf Goal (LTG) Pt to increase right shoulder flexion and abduction MMT to at least 3+/5 in order to enable her to lift items into overhead cabinets at home. LTG Duration Met Two Impairment Right shoulder flexion limited to 124? Alf Goal (LTG) Pt to increase right shoulder flexion to >145? in order to improve ability to don/doff her shirt without pain LTG Duration 05/30/24 - decline One Impairment Pt does not have an appropriate home exercise program Short Term Goal (STG) Pt to be independent and compliant with an appropriate HEP STG Duration Met Assessment Summary Assessment Senia presents after resuming HEP post COVID and houseguests and related regression. She has been gardening in twisted position and admits to lacking mindfulness for shoulder mechanics with weeding, and subsequent incease in R shoulder pain. Treatment focus on strategies for improving shoulder mechanics with gardening and HEPr review Senia requires cues for scapular setting and facing gardening work closely. R shoulder abduction pain-free range improves with repetition and cueing for scapular setting, slower pacing and UT overactivation during wall slides. Pt requires cues with resisted ambulation for theraband placement and form to reduce excessive ER/ abduction during exercise and pt reports improved comfort performing with cueing. Palpable tension to R UT improves with manual therapy end of session. Physical Therapy Plan Frequency and Duration Frequency of Treatment 1x/Week Plan of Care Start Date 03/30/24 Plan of Care End Date 10/14/24 Therapeutic Interventions Therapeutic Interventions Home Exercise Program,Joint Mobilizations,Manual Therapy, Neuromuscular Re-education, Patient/Caregiver Education, Self-Care/Home Management,Soft Tissue Mobilization,Taping, Therapeutic Activities, Therapeutic Exercises Modalities Cold Pack/Ice Massage,Electric Stimulation,Hot Packs Next Visit Focus/Plan Next Note Type Treatment Note Next Visit Plan Review bed positioning and supports for waking up w/ R shoulder pain. POC: Shoulder mobility, strengthening, stretching, increasing activity tolerance
--- NOTE | 2024-04-20 17:35 | PT.OTN ---
Current Diagnoses Pain in right shoulder (04/20/24) Stiffness of right shoulder, not elsewhere classified (04/20/24) Complete rotator cuff tear or rupture of right shoulder, not specified as traumatic (04/20/24) Physical Therapy Treatment Note PT-OP-A Visit Information Start: 12/14/23 16:36 Freq: Status: Active Protocol: Document 04/20/24 16:45 DCW (Rec: 04/20/24 17:35 DCW [id number]) Out-Patient Physical Therapy Visit Information Visit Information Visit Type Treatment Note Visit Start Time 16:45 Visit Stop Time 17:30 Visit Number 18 Number of CLINIC ASSISTANT Visits 0 Evaluation Information Evaluation Date 12/14/23 PT-OP-B Current Condition Start: 12/14/23 16:36 Freq: Status: Active Protocol: Document 12/14/23 14:30 DCW (Rec: 12/14/23 17:31 DCW [id number]) Current Condition History of Current Condition Onset Date Six month history Current Complaints Right shoulder pain, limitations with functional mobility History of Current Condition Pt is an 78 year old female presenting with a six month history of right shoulder pain . Pt was assessed by ortho and underwent an MRI, and was found to have a complete rotator cuff tear, as well as multiple partial tears. Pt denies any history of traumatic injury, unsure of the cause of her tears. Pt reports that she has fairly good ROM overall, but is limited mainly with lifting anything overhead, or reaching out with weight. Additionally , pt has difficulty when attempting to don/doff her shirt or jacket PT-OP-C Subjective Start: 12/14/23 16:36 Freq: Status: Active Protocol: Document 04/20/24 16:45 DCW (Rec: 04/20/24 17:35 DCW [id number]) OP-PT Subjective Patient Comments Patient Comments I had one day where I woke up and everything was painful, but it went away. It's just how it is. PT-OP-F Manual Assessment Start: 12/14/23 16:36 Freq: Status: Active Protocol: Document 03/30/24 15:15 DCW (Rec: 03/30/24 15:47 DCW [id number]) Manual Assessments Soft Tissue Assessment Soft Tissue Mobility Assessment Mild tone right upper trap, right supraspinatus. Atrophy of right infraspinatus PT-OP-K Range of Motion Start: 12/14/23 16:36 Freq: Status: Active Protocol: Document 03/30/24 15:15 DCW (Rec: 03/30/24 15:47 DCW [id number]) Shoulder Goniometric Range of Motion Shoulder Right Passive Testing Position Supine Flexion 132 Abduction 117 Right Active Testing Position Sitting Flexion 125 Abduction 120 External Rotation at 0 degrees Abduction 68 Internal Rotation Behind Back (text) T8 Left Active Testing Position Sitting Flexion 138 Abduction 120 External Rotation at 0 degrees Abduction 73 Internal Rotation Behind Back (text) T6 Shoulder ROM Limitations Shoulder ROM Limitations Soft Tissue Tightness,Muscle Weakness,Muscle Tone,Pain PT-OP-L Special Tests Start: 12/14/23 16:36 Freq: Status: Active Protocol: Document 03/30/24 15:15 DCW (Rec: 03/30/24 15:47 DCW [id number]) Special Tests Shoulder Special Tests Painful Arc Test Results Positive R Rebollar Francis Impingement Test Results Positive R PT-OP-M Strength Start: 12/14/23 16:36 Freq: Status: Active Protocol: Document 03/30/24 15:15 DCW (Rec: 03/30/24 15:47 DCW [id number]) Shoulder Strength Shoulder Manual Muscle Testing Left Flexion 3+ Fair+ Abduction (C5) 3+ Fair+ External Rotation 4 Good Internal Rotation 4 Good Right Flexion 3- Fair- Abduction (C5) 3- Fair- External Rotation 4 Good Internal Rotation 4 Good PT-OP-Q Treatments Start: 12/14/23 16:36 Freq: Status: Active Protocol: Document 04/20/24 16:45 DCW (Rec: 04/20/24 17:35 DCW [id number]) Therapeutic Exercises Standing Exercises Overhead press Standing Exercise Name Overhead Press Side right Resistance 4# Wall Slide Standing Exercise Name wall slide /c forearms // Side bilateral Resistance Lv 2 loop Other Exercises Resisted Ambulation Other Exercise Name Resisted UE Side-stepping ( hand, step, hand) Resistance Green Reps/Minutes x10 ft ea Comments pain-free ROM Manual Therapy Treatment Consent Patient gave verbal consent for manual Yes treatment Soft Tissue Mobilization R scap Body Location UT, LS, pec major, lat, post cuff Mobilization Type Cross-Friction,Rolling, Sustained Pressure Intensity/Depth Moderate Body Position Sidelying Comments pec in hooklying Upper Trap Body Location R UT Mobilization Type Strumming,Sustained Pressure, Trigger Point Release Intensity/Depth Moderate Body Position Sidelying Joint Mobilizations GH jt Joint right Direction posterior and inf Grade II Body Position Hooklying R scapulothoracic Jt Direction retraction/depresssion, rotation Grade II Body Position LSidelying Reps/Duration x5 PT-OP-T Assessment and Plan Start: 12/14/23 16:36 Freq: Status: Active Protocol: Document 04/20/24 16:45 DCW (Rec: 04/20/24 17:35 DCW [id number]) Physical Therapy Assessment Impairments Impairments Activity Tolerance,Functional Activities,Functional Mobility ,Pain,ROM,Soft Tissue Mobility ,Strength,Tone Goals Three Impairment Right shoulder weakness (MMT R flexion and abduction both 3- /5) Route Sales Delivery Drivers Supervisor Goal (LTG) Pt to increase right shoulder flexion and abduction MMT to at least 3+/5 in order to enable her to lift items into overhead cabinets at home. LTG Duration Met Two Impairment Right shoulder flexion limited to 124? Residential Goal (LTG) Pt to increase right shoulder flexion to >145? in order to improve ability to don/doff her shirt without pain LTG Duration 05/30/24 One Impairment Pt does not have an appropriate home exercise program Short Term Goal (STG) Pt to be independent and compliant with an appropriate HEP STG Duration Met Assessment Summary Assessment Pt feeling better overall, does note occasional setbacks, usually when waking up in increased pain, but able to decrease pain with HEP/ stretching. Still trying to decide if she wants to go through surgical intervention. Physical Therapy Plan Frequency and Duration Frequency of Treatment 1x/Week Plan of Care Start Date 03/30/24 Plan of Care End Date 05/30/24 Therapeutic Interventions Therapeutic Interventions Home Exercise Program,Joint Mobilizations,Manual Therapy, Neuromuscular Re-education, Patient/Caregiver Education, Self-Care/Home Management,Soft Tissue Mobilization,Taping, Therapeutic Activities, Therapeutic Exercises Modalities Cold Pack/Ice Massage,Electric Stimulation,Hot Packs Next Visit Focus/Plan Next Note Type Treatment Note Next Visit Plan Review bed positioning and supports for waking up w/ R shoulder pain. POC: Shoulder mobility, strengthening, stretching, increasing activity tolerance
--- NOTE | 2024-04-27 11:56 | PT.OTN ---
Current Diagnoses Pain in right shoulder (04/27/24) Stiffness of right shoulder, not elsewhere classified (04/27/24) Complete rotator cuff tear or rupture of right shoulder, not specified as traumatic (04/27/24) Physical Therapy Treatment Note PT-OP-A Visit Information Start: 12/14/23 16:36 Freq: Status: Active Protocol: Document 04/27/24 11:15 DCW (Rec: 04/27/24 11:56 DCW [id number]) Out-Patient Physical Therapy Visit Information Visit Information Visit Type Treatment Note Visit Start Time 11:15 Visit Stop Time 11:45 Visit Number 19 Number of MULTIMEDIA ARTIST Visits 0 Evaluation Information Evaluation Date 12/14/23 PT-OP-B Current Condition Start: 12/14/23 16:36 Freq: Status: Active Protocol: Document 12/14/23 14:30 DCW (Rec: 12/14/23 17:31 DCW [id number]) Current Condition History of Current Condition Onset Date Six month history Current Complaints Right shoulder pain, limitations with functional mobility History of Current Condition Pt is an 78 year old female presenting with a six month history of right shoulder pain . Pt was assessed by ortho and underwent an MRI, and was found to have a complete rotator cuff tear, as well as multiple partial tears. Pt denies any history of traumatic injury, unsure of the cause of her tears. Pt reports that she has fairly good ROM overall, but is limited mainly with lifting anything overhead, or reaching out with weight. Additionally , pt has difficulty when attempting to don/doff her shirt or jacket PT-OP-C Subjective Start: 12/14/23 16:36 Freq: Status: Active Protocol: Document 04/27/24 11:15 DCW (Rec: 04/27/24 11:56 DCW [id number]) OP-PT Subjective Patient Comments Patient Comments The main time it will hurt is when I'm sleeping, but I think it just is what it is. PT-OP-F Manual Assessment Start: 12/14/23 16:36 Freq: Status: Active Protocol: Document 03/30/24 15:15 DCW (Rec: 03/30/24 15:47 DCW [id number]) Manual Assessments Soft Tissue Assessment Soft Tissue Mobility Assessment Mild tone right upper trap, right supraspinatus. Atrophy of right infraspinatus PT-OP-K Range of Motion Start: 12/14/23 16:36 Freq: Status: Active Protocol: Document 03/30/24 15:15 DCW (Rec: 03/30/24 15:47 DCW [id number]) Shoulder Goniometric Range of Motion Shoulder Right Passive Testing Position Supine Flexion 132 Abduction 117 Right Active Testing Position Sitting Flexion 125 Abduction 120 External Rotation at 0 degrees Abduction 68 Internal Rotation Behind Back (text) T8 Left Active Testing Position Sitting Flexion 138 Abduction 120 External Rotation at 0 degrees Abduction 73 Internal Rotation Behind Back (text) T6 Shoulder ROM Limitations Shoulder ROM Limitations Soft Tissue Tightness,Muscle Weakness,Muscle Tone,Pain PT-OP-L Special Tests Start: 12/14/23 16:36 Freq: Status: Active Protocol: Document 03/30/24 15:15 DCW (Rec: 03/30/24 15:47 DCW [id number]) Special Tests Shoulder Special Tests Painful Arc Test Results Positive R Rebollar Francis Impingement Test Results Positive R PT-OP-M Strength Start: 12/14/23 16:36 Freq: Status: Active Protocol: Document 03/30/24 15:15 DCW (Rec: 03/30/24 15:47 DCW [id number]) Shoulder Strength Shoulder Manual Muscle Testing Left Flexion 3+ Fair+ Abduction (C5) 3+ Fair+ External Rotation 4 Good Internal Rotation 4 Good Right Flexion 3- Fair- Abduction (C5) 3- Fair- External Rotation 4 Good Internal Rotation 4 Good PT-OP-Q Treatments Start: 12/14/23 16:36 Freq: Status: Active Protocol: Document 04/27/24 11:15 DCW (Rec: 04/27/24 11:56 DCW [id number]) Manual Therapy Treatment Consent Patient gave verbal consent for manual Yes treatment Soft Tissue Mobilization R scap Body Location UT, LS, pec major, lat, post cuff Mobilization Type Cross-Friction,Rolling, Sustained Pressure Intensity/Depth Moderate Body Position Sidelying Comments pec in hooklying Upper Trap Body Location R UT Mobilization Type Strumming,Sustained Pressure, Trigger Point Release Intensity/Depth Moderate Body Position Sidelying Joint Mobilizations GH jt Joint right Direction posterior and inf Grade II Body Position Hooklying R scapulothoracic Jt Direction retraction/depresssion, rotation Grade II Body Position LSidelying Reps/Duration x5 PT-OP-T Assessment and Plan Start: 12/14/23 16:36 Freq: Status: Active Protocol: Document 04/27/24 11:15 DCW (Rec: 04/27/24 11:56 DC [id number]) Physical Therapy Assessment Impairments Impairments Activity Tolerance,Functional Activities,Functional Mobility ,Pain,ROM,Soft Tissue Mobility ,Strength,Tone Goals Three Impairment Right shoulder weakness (MMT R flexion and abduction both 3- /5) Supervisor [employer] Goal (LTG) Pt to increase right shoulder flexion and abduction MMT to at least 3+/5 in order to enable her to lift items into overhead cabinets at home. LTG Duration Met Two Impairment Right shoulder flexion limited to 124? Supervisor [employer] Goal (LTG) Pt to increase right shoulder flexion to >145? in order to improve ability to don/doff her shirt without pain LTG Duration 05/30/24 One Impairment Pt does not have an appropriate home exercise program Short Term Goal (STG) Pt to be independent and compliant with an appropriate HEP STG Duration Met Assessment Summary Assessment Pt admits she is leaning toward surgery, mainly to help stabilize the muscle attachment to prevent further tearing or injury. Overall, is largely plateauing, has not progressed much the past few weeks as far as pain levels and ROM goes. Will look toward discharge over the next 1-2 weeks. Physical Therapy Plan Frequency and Duration Frequency of Treatment 1x/Week Plan of Care Start Date 03/30/24 Plan of Care End Date 05/30/24 Therapeutic Interventions Therapeutic Interventions Home Exercise Program,Joint Mobilizations,Manual Therapy, Neuromuscular Re-education, Patient/Caregiver Education, Self-Care/Home Management,Soft Tissue Mobilization,Taping, Therapeutic Activities, Therapeutic Exercises Modalities Cold Pack/Ice Massage,Electric Stimulation,Hot Packs Next Visit Focus/Plan Next Note Type Treatment Note Next Visit Plan Review bed positioning and supports for waking up w/ R shoulder pain. POC: Shoulder mobility, strengthening, stretching, increasing activity tolerance
--- NOTE | 2024-05-04 11:17 | PT.OTN ---
Current Diagnoses Pain in right shoulder (05/04/24) Stiffness of right shoulder, not elsewhere classified (05/04/24) Complete rotator cuff tear or rupture of right shoulder, not specified as traumatic (05/04/24) Physical Therapy Treatment Note PT-OP-A Visit Information Start: 12/14/23 16:36 Freq: Status: Active Protocol: Document 05/04/24 10:35 DCW (Rec: 05/04/24 11:16 DCW [id number]) Out-Patient Physical Therapy Visit Information Visit Information Visit Type Treatment Note Visit Start Time 10:35 Visit Stop Time 11:15 Visit Number 20 Number of TACKER OFF Visits 0 Evaluation Information Evaluation Date 12/14/23 PT-OP-B Current Condition Start: 12/14/23 16:36 Freq: Status: Active Protocol: Document 12/14/23 14:30 DCW (Rec: 12/14/23 17:31 DCW [id number]) Current Condition History of Current Condition Onset Date Six month history Current Complaints Right shoulder pain, limitations with functional mobility History of Current Condition Pt is an 78 year old female presenting with a six month history of right shoulder pain . Pt was assessed by ortho and underwent an MRI, and was found to have a complete rotator cuff tear, as well as multiple partial tears. Pt denies any history of traumatic injury, unsure of the cause of her tears. Pt reports that she has fairly good ROM overall, but is limited mainly with lifting anything overhead, or reaching out with weight. Additionally , pt has difficulty when attempting to don/doff her shirt or jacket PT-OP-C Subjective Start: 12/14/23 16:36 Freq: Status: Active Protocol: Document 05/04/24 10:35 DCW (Rec: 05/04/24 11:16 DCW [id number]) OP-PT Subjective Patient Comments Patient Comments Pt hoping to go up and see an ortho up in [place] for a second opinion. PT-OP-F Manual Assessment Start: 12/14/23 16:36 Freq: Status: Active Protocol: Document 03/30/24 15:15 DCW (Rec: 03/30/24 15:47 DCW [id number]) Manual Assessments Soft Tissue Assessment Soft Tissue Mobility Assessment Mild tone right upper trap, right supraspinatus. Atrophy of right infraspinatus PT-OP-K Range of Motion Start: 12/14/23 16:36 Freq: Status: Active Protocol: Document 03/30/24 15:15 DCW (Rec: 03/30/24 15:47 DCW [id number]) Shoulder Goniometric Range of Motion Shoulder Right Passive Testing Position Supine Flexion 132 Abduction 117 Right Active Testing Position Sitting Flexion 125 Abduction 120 External Rotation at 0 degrees Abduction 68 Internal Rotation Behind Back (text) T8 Left Active Testing Position Sitting Flexion 138 Abduction 120 External Rotation at 0 degrees Abduction 73 Internal Rotation Behind Back (text) T6 Shoulder ROM Limitations Shoulder ROM Limitations Soft Tissue Tightness,Muscle Weakness,Muscle Tone,Pain PT-OP-L Special Tests Start: 12/14/23 16:36 Freq: Status: Active Protocol: Document 03/30/24 15:15 DCW (Rec: 03/30/24 15:47 DCW [id number]) Special Tests Shoulder Special Tests Painful Arc Test Results Positive R Rebollar Francis Impingement Test Results Positive R PT-OP-M Strength Start: 12/14/23 16:36 Freq: Status: Active Protocol: Document 03/30/24 15:15 DCW (Rec: 03/30/24 15:47 DC [id number]) Shoulder Strength Shoulder Manual Muscle Testing Left Flexion 3+ Fair+ Abduction (C5) 3+ Fair+ External Rotation 4 Good Internal Rotation 4 Good Right Flexion 3- Fair- Abduction (C5) 3- Fair- External Rotation 4 Good Internal Rotation 4 Good PT-OP-Q Treatments Start: 12/14/23 16:36 Freq: Status: Active Protocol: Document 05/04/24 10:35 DCW (Rec: 05/04/24 11:16 DCW [id number]) Manual Therapy Treatment Consent Patient gave verbal consent for manual Yes treatment Soft Tissue Mobilization R scap Body Location UT, LS, pec major, lat, post cuff Mobilization Type Cross-Friction,Rolling, Sustained Pressure Intensity/Depth Moderate Body Position Sidelying Comments pec in hooklying Upper Trap Body Location R UT Mobilization Type Strumming,Sustained Pressure, Trigger Point Release Intensity/Depth Moderate Body Position Sidelying Joint Mobilizations GH jt Joint right Direction posterior and inf Grade II Body Position Hooklying R scapulothoracic Jt Direction retraction/depresssion, rotation Grade II Body Position LSidelying Reps/Duration x5 PT-OP-T Assessment and Plan Start: 12/14/23 16:36 Freq: Status: Active Protocol: Document 05/04/24 10:35 DCW (Rec: 05/04/24 11:16 DCW [id number]) Physical Therapy Assessment Impairments Impairments Activity Tolerance,Functional Activities,Functional Mobility ,Pain,ROM,Soft Tissue Mobility ,Strength,Tone Goals Three Impairment Right shoulder weakness (MMT R flexion and abduction both 3- /5) Fpc Goal (LTG) Pt to increase right shoulder flexion and abduction MMT to at least 3+/5 in order to enable her to lift items into overhead cabinets at home. LTG Duration Met Two Impairment Right shoulder flexion limited to 124? Boiling House Oiler Goal (LTG) Pt to increase right shoulder flexion to >145? in order to improve ability to don/doff her shirt without pain LTG Duration 05/30/24 One Impairment Pt does not have an appropriate home exercise program Short Term Goal (STG) Pt to be independent and compliant with an appropriate HEP STG Duration Met Assessment Summary Assessment Reviewed HEP, suggested breaking it up to perform fewer exercises on any specific day. Pt likely approaching discharge. Physical Therapy Plan Frequency and Duration Frequency of Treatment 1x/Week Plan of Care Start Date 03/30/24 Plan of Care End Date 05/30/24 Therapeutic Interventions Therapeutic Interventions Home Exercise Program,Joint Mobilizations,Manual Therapy, Neuromuscular Re-education, Patient/Caregiver Education, Self-Care/Home Management,Soft Tissue Mobilization,Taping, Therapeutic Activities, Therapeutic Exercises Modalities Cold Pack/Ice Massage,Electric Stimulation,Hot Packs Next Visit Focus/Plan Next Note Type Treatment Note Next Visit Plan Review bed positioning and supports for waking up w/ R shoulder pain. POC: Shoulder mobility, strengthening, stretching, increasing activity tolerance
--- NOTE | 2024-05-11 11:11 | PT.OTN ---
Current Diagnoses Pain in right shoulder (05/11/24) Stiffness of right shoulder, not elsewhere classified (05/11/24) Complete rotator cuff tear or rupture of right shoulder, not specified as traumatic (05/11/24) Physical Therapy Treatment Note PT-OP-A Visit Information Start: 12/14/23 16:36 Freq: Status: Active Protocol: Document 05/11/24 10:33 DCW (Rec: 05/11/24 11:10 DCW [id number]) Out-Patient Physical Therapy Visit Information Visit Information Visit Type Discharge Summary Visit Start Time 10:33 Visit Stop Time 11:03 Visit Number 21 Number of MOLD FILLER AND DRAINER Visits 0 Evaluation Information Evaluation Date 12/14/23 PT-OP-B Current Condition Start: 12/14/23 16:36 Freq: Status: Active Protocol: Document 12/14/23 14:30 DCW (Rec: 12/14/23 17:31 DCW [id number]) Current Condition History of Current Condition Onset Date Six month history Current Complaints Right shoulder pain, limitations with functional mobility History of Current Condition Pt is an 78 year old female presenting with a six month history of right shoulder pain . Pt was assessed by ortho and underwent an MRI, and was found to have a complete rotator cuff tear, as well as multiple partial tears. Pt denies any history of traumatic injury, unsure of the cause of her tears. Pt reports that she has fairly good ROM overall, but is limited mainly with lifting anything overhead, or reaching out with weight. Additionally , pt has difficulty when attempting to don/doff her shirt or jacket PT-OP-C Subjective Start: 12/14/23 16:36 Freq: Status: Active Protocol: Document 05/11/24 10:33 DCW (Rec: 05/11/24 11:10 DCW [id number]) OP-PT Subjective Patient Comments Patient Comments I think I can follow the exercises. PT-OP-F Manual Assessment Start: 12/14/23 16:36 Freq: Status: Active Protocol: Document 03/30/24 15:15 DCW (Rec: 03/30/24 15:47 DCW [id number]) Manual Assessments Soft Tissue Assessment Soft Tissue Mobility Assessment Mild tone right upper trap, right supraspinatus. Atrophy of right infraspinatus PT-OP-K Range of Motion Start: 12/14/23 16:36 Freq: Status: Active Protocol: Document 05/11/24 10:33 DCW (Rec: 05/11/24 10:49 ARW [id number]) Shoulder Goniometric Range of Motion Shoulder Right Passive Testing Position Supine Flexion 143 Abduction 124 Right Active Testing Position Sitting Flexion 126 Abduction 98 External Rotation at 0 degrees Abduction 68 Internal Rotation Behind Back (text) T8 Left Active Testing Position Sitting Flexion 141 Abduction 138 External Rotation at 0 degrees Abduction 74 Internal Rotation Behind Back (text) T4 Shoulder ROM Limitations Shoulder ROM Limitations Soft Tissue Tightness,Muscle Weakness,Muscle Tone,Pain PT-OP-L Special Tests Start: 12/14/23 16:36 Freq: Status: Active Protocol: Document 05/11/24 10:33 DCW (Rec: 05/11/24 10:49 ARW [id number]) Special Tests Shoulder Special Tests Painful Arc Test Results Positive R Rebollar Francis Impingement Test Results Positive R PT-OP-M Strength Start: 12/14/23 16:36 Freq: Status: Active Protocol: Document 05/11/24 10:33 DCW (Rec: 05/11/24 10:49 DC [id number]) Shoulder Strength Shoulder Manual Muscle Testing Left Flexion 3+ Fair+ Abduction (C5) 3+ Fair+ External Rotation 4 Good Internal Rotation 4 Good Right Flexion 3- Fair- Abduction (C5) 3- Fair- External Rotation 4 Good Internal Rotation 4 Good PT-OP-Q Treatments Start: 12/14/23 16:36 Freq: Status: Active Protocol: Document 05/11/24 10:33 DCW (Rec: 05/11/24 11:10 DCW [id number]) Manual Therapy Treatment Consent Patient gave verbal consent for manual Yes treatment Soft Tissue Mobilization R scap Body Location UT, LS, pec major, lat, post cuff Mobilization Type Cross-Friction,Rolling, Sustained Pressure Intensity/Depth Moderate Body Position Sidelying Comments pec in hooklying Upper Trap Body Location R UT Mobilization Type Strumming,Sustained Pressure, Trigger Point Release Intensity/Depth Moderate Body Position Sidelying Joint Mobilizations GH jt Joint right Direction posterior and inf Grade II Body Position Hooklying R scapulothoracic Jt Direction retraction/depresssion, rotation Grade II Body Position LSidelying Reps/Duration x5 PT-OP-T Assessment and Plan Start: 12/14/23 16:36 Freq: Status: Active Protocol: Document 05/11/24 10:33 DCW (Rec: 05/11/24 11:10 DCW [id number]) Physical Therapy Assessment Impairments Impairments Activity Tolerance,Functional Activities,Functional Mobility ,Pain,ROM,Soft Tissue Mobility ,Strength,Tone Goals Three Impairment Right shoulder weakness (MMT R flexion and abduction both 3- /5) Fpc Goal (LTG) Pt to increase right shoulder flexion and abduction MMT to at least 3+/5 in order to enable her to lift items into overhead cabinets at home. LTG Duration Met Two Impairment Right shoulder flexion limited to 124? Fpc Goal (LTG) Pt to increase right shoulder flexion to >145? in order to improve ability to don/doff her shirt without pain LTG Duration 05/30/24 One Impairment Pt does not have an appropriate home exercise program Short Term Goal (STG) Pt to be independent and compliant with an appropriate HEP STG Duration Met Progress Towards Goals Progress Towards Goals Slow Progress due to Medical Issues Assessment Summary Assessment Pt has largely plateaued, planning for future shoulder surgery. Discussed overall plans going forward, pt expects to receive new referral following shoulder surgery to return to skilled PT at a later date. Pt in agreement with this plan. Feels good about independent HEP. Pt discharged from PT at this time. Physical Therapy Plan Frequency and Duration Frequency of Treatment 1x/Week Plan of Care Start Date 03/30/24 Plan of Care End Date 05/30/24 Therapeutic Interventions Therapeutic Interventions Home Exercise Program,Joint Mobilizations,Manual Therapy, Neuromuscular Re-education, Patient/Caregiver Education, Self-Care/Home Management,Soft Tissue Mobilization,Taping, Therapeutic Activities, Therapeutic Exercises Modalities Cold Pack/Ice Massage,Electric Stimulation,Hot Packs Discharge Physical Therapy Discharge Reasons Plateau in Progress Next Visit Focus/Plan Next Note Type Discharge Summary
== END 2024-05-16 14:23 | disposition home or self-care (01) ==
LOC: PHYS 10:30
PROVIDERS: Family Provider Family Medicine; PCP Family Medicine; Referring Provider Orthopaedic Surgery; Visit Provider Orthopaedic Surgery
DX: M75.121 Complete rotator cuff tear or rupture of right shoulder, not specified as traumatic (principal); M25.611 Stiffness of right shoulder, not elsewhere classified; M25.511 Pain in right shoulder
CPT/HCPCS: 97110; 97140; 97162; 97535

== ENCOUNTER 2025-05-31 14:48 | Emergency (ER) | payer MEDICARE, BC, SELFPAY ==
[2025-05-31] VITALS (7 sets, daily range): BP systolic 114–132; BP diastolic 56–62; PULSE 64–72; RESP 16; TEMP 36.9; O2SAT 96–98; BMI 23.9
--- NOTE | 2025-05-31 15:04 | EKG_ITS ---
[address] [address] Test Date: 2025-05-31 Pat Name: Senia Campos Department: [facility] Room: Gender: Female [employer] Administrator: : 1945 Requested By: Order Number: [id number] Reading MD: Kamron Colon MD Measurements Intervals [place] Rate: 68 P: 33 OR: 144 QRS: 33 QRSD: 82 T: 65 QT: 384 QTc: 408 Interpretive Statements Normal sinus rhythm Nonspecific ST and T wave abnormality Electronically Signed On 06-01-2025 7:20:43 PDT by Kamron Colon MD
[2025-05-31 15:51] LABS: Add Manual Diff / Slide Review NO; Hematocrit 40.4 % (36-46); Hemoglobin 13.8 g/dL (12.0-16.0); Lymphocytes Absolute Auto 1300 /uL (1100-4500); Mean Corpuscular HGB Conc 34.3 % (30-36); Mean Corpuscular Hemoglobin 30.4 PG (26-34); Mean Corpuscular Volume 88.8 fL (80-100); Platelet Count 223 X10^3/uL (150-400)
[2025-05-31 16:12] LABS: Alanine Aminotransferase 14 IU/L (<35); Albumin 3.8 g/dL (3.5-5.0); Albumin Globulin Ratio 1.5 (1.0-2.8); Alkaline Phosphatase 62 U/L (38-126); Blood Urea Nitrogen 32 mg/dL (7-17); Calcium 8.9 mg/dL (8.4-10.2); Carbon Dioxide 23 mmol/L (22-32); Chloride 102 mmol/L (98-107); Estimated Glomerular Filt Rate > 60 mL/min (>60); Globulin 2.5 g/dL (1.7-4.1); Glucose 84 mg/dL (70-99); HEMOLYSIS < 15 (0-50); Lipase 185 U/L (23-300); Potassium 3.9 mmol/L (3.4-5.1); Sodium 133 mmol/L (137-145); Total Protein 6.3 g/dL (6.3-8.2)
--- NOTE | 2025-05-31 16:19 | ED.ABDPAIN ---
HPI - Abdominal Pain General Chief Complaint: Abdominal Pain Stated Complaint: dehydrated- sent from Dr. Costa Time Seen by Provider: 05/31/25 16:05 Source: patient Mode of arrival: Ambulatory History of Present Illness HPI narrative: Patient is a 79-year-old year old female without significant medical history presenting today with nausea vomiting diarrhea. She reports it has been ongoing for a number of days she is feeling a little weak dizzy lightheaded. She has intermittent bloody stool no significant abdominal pain. She has really only urinated twice in the last 2 days. She has only keeping small amounts of fluid in decrease in appetite. No significant chest pain weakness or other symptoms Related Data Home Medications ?Medication ?Instructions ?Recorded ?Confirmed cholecalciferol (vitamin D3) 50 2,000 unit PO DAILY 05/05/18 05/29/25 mcg (2,000 unit) capsule Respironics DreamStation CPAP #1 ea 12/07/18 05/29/25 calcium carbonate (Calcium 500) 1,000 mg PO DAILY 05/16/22 05/29/25 magnesium citrate (Citrate of 150 ml PO DAILY 01/16/23 05/29/25 Magnesia oral) vitamin B complex 1 tab PO DAILY 01/16/23 05/29/25 vitamins A,C,J-nrhc-ddxnuu 2,148 2 tab PO BID 05/29/25 05/29/25 mcg-113 mg-45 mg-17.4 mg tablet (PreserVision AREDS) Previous Rx's ?Medication ?Instructions ?Recorded CMP Estriol 1mg Vaginal Pina 10 mcg vaginal 2XW #24 tabs 09/12/24 ondansetron 4 mg disintegrating 4 mg PO Q8H PRN nausea and 05/31/25 tablet vomiting #10 tabs Allergies Allergy/AdvReac Type Severity Reaction Status Date / Time MRI contrast AdvReac Mild Abdominal Uncoded 05/29/25 12:19 Pain Patient History Medical History Injury of right rotator cuff Sinus congestion Community acquired pneumonia Dyspareunia, female Thyroid nodule Spinal stenosis Osteoporosis Actinic keratosis Tension headache Vocal cord dysfunction Allergic rhinitis House dust mite allergy Cervical intraepithelial neoplasia (BEATRIZ) Excessive daytime sleepiness (~2014) Obstructive sleep apnea of adult (~2014) Snoring (~2014) Primary insomnia (~2014) History of nonmelanoma skin cancer Osteopenia after menopause Mixed basal-squamous cell carcinoma Family history of neoplasm of brain (12/23/16) Hyperlipidemia (12/23/16) Diverticulosis of sigmoid colon (05/01/16) Internal hemorrhoids (05/01/16) History of colonic polyps (05/01/16) Surgical History History of tonsillectomy (~1948) Status post cone biopsy of cervix (~1989) Family History Grandmother Colon cancer Father No problems noted. Grandfather No problems noted. Family/Other No problems noted. Social History marital status: details: to Korey Mccann, lives in [place] household members: spouse lives independently: Yes caregiver/support person: No housing: house Smoking Status: Never smoker alcohol intake: former substance use type: does not use Smoking Status: Never smoker Exam Initial Vital Signs Initial Vital Signs: Vital Signs Temperature 98.4 F 05/31/25 14:52 Pulse Rate 70 05/31/25 14:52 Respiratory Rate 16 05/31/25 14:52 Blood Pressure 132/62 05/31/25 14:52 Pulse Oximetry 98 05/31/25 14:52 Oxygen Delivery Method Room Air 05/31/25 14:52 GENERAL: Alert well-appearing 79-year-old female and in no acute distress. HEENT: Head atraumatic,EOMI, pupils reactive, face symmetric, dry mucous membranes CARDIOVASCULAR: Regular rate and rhythm without murmurs, rubs or gallops. RESPIRATORY: Breath sounds equal bilaterally, no wheezes rales or rhonchi. ABDOMEN: Soft, nontender. Normoactive bowel sounds all 4 quadrants. No guarding or rebound. EXTREMITIES: Normal range of motion, no clubbing or edema. Neurovascularly intact NEUROLOGICAL: Alert and oriented x4.Normal gait and speech. Cranial nerves II through XII grossly intact. SKIN: Warm, dry, no laceration, no petechiae, no rashes or lesions. Course Orders Ordered: ED Orders 05/31/25 15:04 EKG-12 Lead Stat 05/31/25 15:45 Complete Blood Count AUTO DIFF Stat Comprehensive Metabolic Panel Stat Lipase Stat 05/31/25 17:01 Urine Culture Stat Urine Microscopic Stat Ondansetron HCl (Ondansetron 4 Mg/2 Ml Inj) 4 mg IV NOW PRN PRN Reason: Nausea And Vomiting Last Admin: 05/31/25 16:51 Dose: 4 mg Documented By: REGGIE Ondansetron HCl (Ondansetron 4 Mg Odt) 4 mg PO NOW PRN PRN Reason: Nausea And Vomiting Discontinued Medications Sodium Chloride (Normal Saline 0.9%) 1,000 mls @ 1,000 mls/hr IV BOLUS ONE Stop: 05/31/25 17:18 Last Admin: 05/31/25 16:49 Dose: 1,000 mls/hr Documented By: REGGIE Pantoprazole Sodium (Pantoprazole 40 Mg Vial) 40 mg IV NOW ONE Stop: 05/31/25 16:20 Last Admin: 05/31/25 16:51 Dose: 40 mg Documented By: REGGIE Vital Signs Vital signs: Vital Signs - 8 hr 05/31/25 14:52 05/31/25 17:00 05/31/25 17:01 Temperature 98.4 F Pulse Rate 70 65 72 Respiratory Rate 16 Blood Pressure 132/62 Pulse Oximetry 98 96 97 Oxygen Delivery Method Room Air 05/31/25 17:02 05/31/25 17:30 05/31/25 17:31 Temperature Pulse Rate 64 66 Respiratory Rate Blood Pressure 132/62 Pulse Oximetry 96 97 Oxygen Delivery Method 05/31/25 17:31 Temperature Pulse Rate Respiratory Rate Blood Pressure 117/59 L Pulse Oximetry Oxygen Delivery Method MDM - Abdominal Pain Lab Data 05/31/25 15:45 05/31/25 15:45 Labs: Lab Results 05/31/25 05/31/25 Range/Units 15:45 17:01 WBC 5.8 (4.5-11.0) X10^3/uL RBC 4.55 (4.0-5.2) X10^6/uL Hgb 13.8 (12.0-16.0) g/dL Hct 40.4 (36-46) % MCV 88.8 (80-100) fL MCH 30.4 (26-34) PG MCHC 34.3 (30-36) % RDW 13.5 (11.6-14.8) % Plt Count 223 (150-400) X10^3/uL Neut % (Auto) 63.6 (50-75) % Lymph % (Auto) 22.3 L (25-40) % [place] % (Auto) 11.0 (3-14) % Eos % (Auto) 1.4 L (2-4) % Baso % (Auto) 1.7 (0-2) % Neut # (Auto) 3700 (9680-1133) /uL Lymph # (Auto) 1300 (3539-2692) /uL [place] # (Auto) 600 (0-900) /uL Eos # (Auto) 100 (0-450) /uL Baso # (Auto) 100 (0-100) /uL Sodium 133 L (137-145) mmol/L Potassium 3.9 (3.4-5.1) mmol/L Chloride 102 (98-107) mmol/L Carbon Dioxide 23 (22-32) mmol/L BUN 32 H (7-17) mg/dL Creatinine 0.91 (0.52-1.04) mg/dL Estimated GFR > 60 (>60) mL/min BUN/Creatinine Ratio 35.2 H (6-22) Glucose 84 (70-99) mg/dL Calcium 8.9 (8.4-10.2) mg/dL Total Bilirubin 1.3 (0.2-1.3) mg/dL AST 25 (14-36) IU/L ALT 14 (<35) IU/L Alkaline Phosphatase 62 (38-126) U/L Total Protein 6.3 (6.3-8.2) g/dL Albumin 3.8 (3.5-5.0) g/dL Globulin 2.5 (1.7-4.1) g/dL Albumin/Globulin Ratio 1.5 (1.0-2.8) Lipase 185 (23-300) U/L Urine RBC 0-1/hpf (0-5/HPF) Urine WBC 5-10/hpf H (0-5/HPF) Ur Squamous Epith Cells 5-10 /hpf H (0-5/HPF) Urine Bacteria Moderate (10-30) H (None) Ur Culture Indicated? Specimen cultured Vol Urine Centrifuged 10ml (spun) Point of care testing: Urine Dip Bedside Urine Glucose Negative Bedside Urine Bilirubin - Negative Bedside Urine Ketone +++ 80 Urine Specific [place] 1.020 Bedside Urine Occult Blood +/- Bedside Urine pH 6.0 Bedside Urine Protein +/- 15 Bedside Urine Urobilinogen - Negative Bedside Urine Nitrite - Negative Bedside Urine Leukocytes +/- 15 Esterase MDM Narrative Medical decision making narrative: Patient is an 79-year-old female presenting today with gastroenteritis like symptoms nausea vomiting diarrhea for the last 4 days. She has had intermittent bloody stool and decreased appetite. Blood work has been reviewed No leukocytosis no anemia Electrolytes show mild hyponatremia with a sodium of 133 potassium is within normal limits at 3.9 BUN slightly elevated 32 with creatinine of 0.91 suggesting possible dehydration glucose 84 Bilirubin liver enzymes within normal limits sHe is given IV fluids Zofran and Protonix in the ED, tolerating p.o. fluids. She is given strict return precautions Discharge Plan Departure Patient Disposition: Home Clinical Impression: Gastroenteritis Instructions: DI for Viral Gastroenteritis -- Adult Activity Restrictions/Additional Instructions: *You have been diagnosed with gastroenteritis *What to do: At this time increase fluids as tolerated recommend electrolyte fluid Gatorade, Pedialyte Powerade increase diet as tolerated *Continue to take medications as directed Zofran 4 mg every 8 hours if needed for nausea or vomiting *Follow up with your primary care provider in 2-3 days or call [phone] *Return to ER if you should have persistent fluids increasing pain or any new, worsening or concerning symptoms Prescriptions: New ondansetron 4 mg tablet,disintegrating 4 mg PO Q8H PRN (Reason: nausea and vomiting) Qty: 10 0RF No Action CMP Estriol 1mg Vaginal Pina 10 mcg Vaginal 2XW Qty: 24 3RF calcium carbonate [Calcium 500] 500 mg calcium (1,250 mg) tablet,chewable 1,000 mg PO DAILY PreserVision AREDS 2,148 mcg-113 mg-45 mg-17.4mg tablet 2 tab PO BID Rx Instructions: administer with AM and PM meals cholecalciferol (vitamin D3) 2,000 unit capsule 2,000 unit PO DAILY vitamin B complex Tablet 1 tab PO DAILY magnesium citrate [Citrate of Magnesia] Solution 150 ml PO DAILY (DME) Respironics DreamStation CPAP Qty: 1 Dose Instruction: As directed Patient Comments: Pressure: 6-12 cmH2O DME: [facility] Rx Instructions: As directed Referrals: Ariella Costa DO [Primary Care Provider, Medical] Stand Alone Forms: Patient Portal/API
[2025-05-31] MEDS: SODIUM CHLORIDE 0.9% 1,000 ML 1000 ML IV (16:49)
[2025-05-31] MEDS: ONDANSETRON 4 MG/2 ML INJ IV (16:51)
[2025-05-31] MEDS: PANTOPRAZOLE 40 MG VIAL IV (16:51)
[2025-05-31 17:25] LABS: Culture Indicated Urine Specimen Cultured
== END 2025-05-31 18:33 | disposition home or self-care (01) ==
PROVIDERS: Emergency Provider Emergency Medicine; Family Provider Family Medicine; PCP Family Medicine
DX: K52.9 Noninfective gastroenteritis and colitis, unspecified (principal); R42 Dizziness and giddiness
CPT/HCPCS: 80053; 81003; 81015; 83690; 85025; 87086; 93005; 96361; 96374; 96375; 99284; J2405; J2470; J7030

== ENCOUNTER → 2025-06-15 14:07 | Outpatient (CLI) | payer MEDICARE, BC, SELFPAY ==
[2025-06-15 15:04] LABS: Alanine Aminotransferase 17 IU/L (<35); Albumin 3.7 g/dL (3.5-5.0); Albumin Globulin Ratio 1.6 (1.0-2.8); Alkaline Phosphatase 77 U/L (38-126); Blood Urea Nitrogen 22 mg/dL (7-17); Calcium 9.4 mg/dL (8.4-10.2); Carbon Dioxide 26 mmol/L (22-32); Chloride 107 mmol/L (98-107); Estimated Glomerular Filt Rate > 60 mL/min (>60); Globulin 2.3 g/dL (1.7-4.1); Glucose 100 mg/dL (70-99); HEMOLYSIS < 15 (0-50); Potassium 4.5 mmol/L (3.4-5.1); Sodium 139 mmol/L (137-145); Total Protein 6.0 g/dL (6.3-8.2)
[2025-06-15 15:13] LABS: NT-proBNP (BNP-Adult 18+) 886 pg/mL (<450)
[2025-06-15 16:40] LABS: TSH w/ Reflex to FT4 1.79 uIU/mL (0.47-4.68)
[2025-06-15 17:27] LABS: Protein (Total) Urine Random < 5 mg/dL (0-12); Protein Creatinine Ratio Urine 0.08 GRAM/24H
== END ==
PROVIDERS: Family Provider Family Medicine; PCP Family Medicine; Referring Provider Family Medicine; Visit Provider Family Medicine
DX: I50.9 Heart failure, unspecified (principal); R60.9 Edema, unspecified; E03.9 Hypothyroidism, unspecified
CPT/HCPCS: 36415; 80053; 82570; 83880; 84156; 84443

== ENCOUNTER → 2025-06-23 07:35 | Outpatient (CLI) | payer MEDICARE, BC, SELFPAY ==
--- NOTE | 2025-06-23 | DI.RAD.S_ITS ---
PROCEDURE: XR CERVICAL SPINE 2V OR 3V
--- NOTE | 2025-06-23 | DI.RAD.S_ITS ---
PROCEDURE: XR LUMBAR SPINE 2-3V
--- NOTE | 2025-06-23 | DI.RAD.S_ITS ---
PROCEDURE: XR THORACIC SPINE 2V
--- NOTE | 2025-06-23 07:36 | DI.US.S_ITS ---
PROCEDURE: US ABDOMEN COMPLETE
== END ==
PROVIDERS: Family Provider Family Medicine; PCP Family Medicine; Referring Provider Physician Assistant; Visit Provider Physician Assistant
DX: I08.1 Rheumatic disorders of both mitral and tricuspid valves (principal); M47.812 Spondylosis without myelopathy or radiculopathy, cervical region; M47.814 Spondylosis without myelopathy or radiculopathy, thoracic region; M47.816 Spondylosis without myelopathy or radiculopathy, lumbar region; M47.817 Spondylosis without myelopathy or radiculopathy, lumbosacral region; R60.0 Localized edema; R06.09 Other forms of dyspnea; M54.59 Other low back pain; R79.89 Other specified abnormal findings of blood chemistry; R14.0 Abdominal distension (gaseous)
CPT/HCPCS: 72040; 72070; 72100; 76700; 93306

== ENCOUNTER → 2025-07-31 08:54 | Outpatient (CLI) | payer MEDICARE, BC, SELFPAY ==
--- NOTE | 2025-07-31 08:56 | DI.US.S_ITS ---
MM diagnostic mammo BI, US breast BI limited: 07/31/2025 BI-RADS: 1 CLINICAL: 80-year old female for bilateral diagnostic mammogram and bilateral diagnostic breast ultrasound. Tyrer-Cuzick lifetime risk of 0.4%. No personal or first- degree family history of breast cancer. The patient reports palpable abnormalities in both breasts and pain (more than 2 years) in the left breast. The patient had a prior left breast biopsy. PRIOR EXAMS 01/01/2022, 01/02/2018. MAMMOGRAPHY TECHNIQUE: 2D and 3D (tomosynthesis) digital mammographic views obtained, with additional images as needed for full coverage. Current study was also evaluated with a Computer Aided Detection (CAD) system. ULTRASOUND TECHNIQUE: TARGETED Bilateral Breast Ultrasound: Real-time ultrasound exam was performed focused to area of clinical and/or imaging concern. Real-time peng scale imaging of the area of clinical interest was performed with image documentation. DENSITY C. The breasts are heterogeneously dense, which may obscure small masses. MAMMOGRAPHY FINDINGS Right (finding-1): Lower Outer Quadrant, Middle depth: A skin marker was placed in the area of concern, and no mammographic abnormalities are identified or to account for concern by the patient of a palpable lump. No suspicious mass, asymmetry, microcalcification, or other abnormality seen. Right (finding-2): Upper Outer Quadrant, Middle depth: There is no suspicious mammographic finding to account for concern by the patient of a palpable lump. No suspicious mass, asymmetry, microcalcification, or other abnormality seen. Left (finding-3): Lower Outer Quadrant, Middle depth: A skin marker was placed in the area of concern, and no mammographic abnormalities are identified or to account for concern by the patient of a palpable lump. No suspicious mass, asymmetry, microcalcification, or other abnormality seen. Left (finding-4): Lower Central, Middle depth: A skin marker was placed in the area of concern, and no mammographic abnormalities are identified or to account for concern by the patient of a palpable lump. No suspicious mass, asymmetry, microcalcification, or other abnormality seen. Left (finding-5): Lower Inner Quadrant, Posterior depth: There is no suspicious mammographic finding to account for concern by the patient of a palpable lump. No suspicious mass, asymmetry, microcalcification, or other abnormality seen. ULTRASOUND FINDINGS Right (finding-1): Lower Outer at 7:00, 3 cm from nipple: Underlying the surface marker, there is no sonographic abnormality to account for concern by the patient of a palpable lump. Right (finding-2): Upper Outer at 10:00, 10 cm from nipple: There is no sonographic abnormality to account for concern by the patient of a palpable lump. Left (finding-3): Lower Outer at 4:00, 3 cm from nipple: Underlying the surface marker, there is no sonographic abnormality to account for concern by the patient of a palpable lump. Left (finding-4): Lower at 6:00, 7 cm from nipple: Underlying the surface marker, there is no sonographic abnormality to account for concern by the patient of a palpable lump. Left (finding-5): Lower Inner at 7:00, 10 cm from nipple: There is no sonographic abnormality to account for concern by the patient of a palpable lump. IMPRESSION: * No evidence of malignancy. RECOMMENDATIONS Bilateral * Clinical follow-up is recommended, and further management of palpable abnormalities or other focal signs or symptoms should be based on the results of clinical evaluation. If palpable abnormality or other concerning symptom persists or progresses, further clinical evaluation should be considered. * Annual screening mammography. COMMENTS: Findings and recommendations were conveyed to the patient during today's evaluation. OVERALL ASSESSMENT CATEGORY BI-RADS-1: Negative. The [employer] recommends annual screening mammography beginning at age 40 for women with average risk of breast cancer. ELECTRONICALLY SIGNED: Stacey Nance M.D. on 07/31/2025 at 10:53:35 AM PT Interpreting Station ID: [id number]
== END ==
LOC: MAMMO 08:55
PROVIDERS: Family Provider Family Medicine; PCP Family Medicine; Referring Provider Physician Assistant; Visit Provider Physician Assistant
DX: N64.4 Mastodynia (principal); R92.333 Mammographic heterogeneous density, bilateral breasts
CPT/HCPCS: 76642; 77066; G0279